=== PATIENT | female | born 1940 | race Hispanic/Latino ===

== ENCOUNTER 2018-04-26 14:47 | Emergency (ER) | payer MEDICARE ==
[~2018-04-26] VITALS: Ht 157.5 cm; Wt 58.5 kg
[~2018-04-26 14:47] MED LIST: AMLODIPINE; ATENOLOL; GABAPENTIN; LOSARTAN; RANITIDINE; REMICADE; SIMVASTATIN; TRAMADOL
--- NOTE | 2018-04-26 17:18 | Diagnostic Imaging Report ---
PROCEDURE:X-RAY LEFT SHOULDER, COMPLETE COMPARISON:Chest radiograph 10/10/2017 INDICATIONS:FALL, LEFT SHOULDER PAIN FINDINGS: BONES: Decreased mineralization. No acute fracture or dislocation. Joint spaces are within normal limits. SOFT TISSUES: Negative. OTHER: Stable left upper lobe calcific granuloma or atherosclerotic plaque. CONCLUSION: No acute osseous abnormalities. Dictated by: Renny Christine M.D. on 04/26/2018 at 17:21 Electronically approved by: eRnny Christine M.D. on 04/26/2018 at 17:21
--- NOTE | 2018-04-26 17:25 | Diagnostic Imaging Report ---
PROCEDURE:C-SPINE COMPLETE COMPARISON:None. INDICATIONS:FALL, NECK PAIN FINDINGS: Limited evaluation for subtle fractures and ligamentous injuries. The lateral view is visualized from the skull base to C6-C7. The neck is hyperextended. Retrolisthesis of 0.3 cm of C3 on C4. Possible mild anterolisthesis of C6 on C7. Decreased disc space at C4-C5, C5-C6, and C6-C7. There are no compression deformities. The C1/C2-odontoid interval is normal. The pre-vertebral soft tissues are normal. CONCLUSION: No acute bony abnormalities. Mild retrolisthesis of C3 on C4. Possible mild anterolisthesis of C6 on C7. If pain persists, recommend CT neck without contrast for more sensitive evaluation. Dictated by: Renny Christine M.D. on 04/26/2018 at 17:28 Electronically approved by: Renny Christine M.D. on 04/26/2018 at 17:28
--- NOTE | 2018-04-26 17:28 | Diagnostic Imaging Report ---
PROCEDURE: Frontal and lateral views of the chest. COMPARISON: Chest radiograph 10/10/2017 INDICATIONS: FALL FINDINGS: Lines/tubes: None. Lungs: The lungs are poorly inflated. There is mild bibasilar atelectasis. Stable apical calcified granulomas versus vascular calcifications. There is no evidence of pneumonia or pulmonary edema. Pleura: There is no pleural effusion or pneumothorax. Heart and mediastinum: The heart and the mediastinum are normal. Bones: No acute bony abnormality. IMPRESSION: No acute cardiopulmonary disease. Dictated by: Renny Christine M.D. on 04/26/2018 at 17:31 Electronically approved by: Renny Christine M.D. on 04/26/2018 at 17:31
[2018-04-27] MEDS ORDERED: TRAMADOL HCL 50 MG TAB PO ONE
--- NOTE | 2018-04-27 00:32 | Diagnostic Imaging Report ---
FOOT RIGHT AP LAT, FOOT LEFT AP LAT Comparison: None Clinical history: Trauma Findings: Diffusely decreased bone mineralization severely limits evaluation. Right foot: Fusion of the 1st metatarsal and proximal phalanx. Chronic appearing deformities of the 1st IP and 2nd-5th MTP joints. No definite acute displaced fracture. Hammertoe deformities/positioning. Mineralization or radiopaque densities are seen along the plantar aspect of the first digit. Vascular calcifications. Left foot: Chronic appearing deformity of the 2nd-5th MTP joints with bilateral phalangeal subluxation. Two screw fixation and postsurgical fusion of the 1st metatarsal and proximal phalanx. Slight superior subluxation of the first digit distal phalanx this is a 4 view of the. Hammertoe deformities/positioning. Vascular calcifications. Impression: Multiple chronic deformities, as above. No definite acute displaced fracture. Normal gated wall motion and 15 1 Signed by: Dr Haven Nuñez MD on 04/27/2018 12:28 AM
== END 2018-04-27 01:15 | disposition home or self-care (01) ==
LOC: ER 14:47
DX: M54.2 Cervicalgia (principal); S10.83XA Contusion of other specified part of neck, initial encounter; S40.012A Contusion of left shoulder, initial encounter; S90.31XA Contusion of right foot, initial encounter; W18.39XA Other fall on same level, initial encounter; Y92.008 Other place in unspecified non-institutional (private) residence as the place of occurrence of the external cause
CPT/HCPCS: 71046; 72050; 99283

== ENCOUNTER 2018-05-06 20:18 | Inpatient (IN) | payer MEDICARE ==
[~2018-05-06] VITALS: Ht 157.5 cm; Wt 57.6 kg
[~2018-05-06 20:18] MED LIST changes: -AMLODIPINE; +AMLODIPINE PO; -ATENOLOL; +ATENOLOL PO; -LOSARTAN; +LOSARTAN PO; -SIMVASTATIN; +SIMVASTATIN PO
[2018-05-06] MEDS ORDERED: PANTOPRAZOLE 40 MG 10ML VIAL IV STA (20:36)
[2018-05-06 20:55] LABS: BASOPHILS # (AUTO) 0.1 (0.0-0.1); BASOPHILS % 1.3 % (0.0-1.0); EOSINOPHILS # (AUTO) 0.7 (0.0-0.4); EOSINOPHILS % 7.1 % (0.0-6.0); HEMATOCRIT 38.8 % (34.2-44.1); HEMOGLOBIN 13.2 g/dL (12.0-16.0); LYMPHOCYTES # (AUTO) 0.8 (1.0-3.2); LYMPHOCYTES % 8.4 % (18.0-39.1); MEAN CORPUSCULAR HEMOGLOBIN 31.7 pg (28-32); MEAN CORPUSCULAR VOLUME 93.3 fL (81-99); MONOCYTES # (AUTO) 0.5 (0.2-0.8); MONOCYTES % 5.2 % (4.4-11.3); NEUTROPHILS # (AUTO) 7.6 (2.1-6.9); NEUTROPHILS % 77.5 % (38.7-80.0); PLATELET COUNT 262 x10e3/uL (140-360); RED BLOOD COUNT 4.16 x10e6/uL (3.6-5.1); RED CELL DISTRIBUTION WIDTH 14.8 % (11.7-14.4)
[2018-05-06] MEDS ORDERED: SODIUM CHLORIDE 0.9% 500ML 500 ML IV ONE (21:00)
[2018-05-06 21:04] LABS: INR 1.08; PROTHROMBIN TIME 13.2 seconds (11.9-14.5)
[2018-05-06 21:05] LABS: PARTIAL THROMBOPLASTIN TIME 30.5 seconds (23.8-35.5)
[2018-05-06 21:15] LABS: ALANINE AMINOTRANSFERASE 19 IU/L (0-55); ALBUMIN 3.4 g/dL (3.5-5.0); ALBUMIN/GLOBULIN RATIO 0.7 (0.8-2.0); ALKALINE PHOSPHATASE 117 IU/L (40-150); ANION GAP 13.3 mmol/L (8-16); BLOOD UREA NITROGEN 13 mg/dL (7-26); BUN/CREATININE RATIO 16 (6-25); CALCIUM 9.5 mg/dL (8.4-10.2); CARBON DIOXIDE 19 mmol/L (22-29); CHLORIDE 96 mmol/L (98-107); CREATINE KINASE 34 IU/L (29-168); CREATININE, SERUM 0.79 mg/dL (0.57-1.11); EST GLOMERULAR FILTRATION RATE > 60 ML/MIN (60-); GLUCOSE 115 mg/dL (74-118); LIPASE 70 U/L (8-78); MAGNESIUM 1.9 MG/DL (1.3-2.1); POTASSIUM 4.3 mmol/L (3.5-5.1); SODIUM 124 mmol/L (136-145)
[2018-05-06 21:16] LABS: B-TYPE NATRIURETIC PEPTIDE2 76.5 pg/mL (0-100)
--- NOTE | 2018-05-06 21:27 | Diagnostic Imaging Report ---
EXAMINATION: Head CT without contrast. HISTORY:Recent fall. COMPARISON:CT brain from 10/10/2017. TECHNIQUE: Multidetector axial images were obtained from the foramen magnum to the vertex without contrast. The images were reconstructed using brain and bone algorithms. Thin section brain images were reformatted into coronal and sagittal planes. Intravenous contrast: None IMAGE QUALITY: Acceptable. FINDINGS: Skull/scalp: No lytic or blastic. lesions. No surgical changes. Parenchyma: Unchanged nonspecific bilateral frontoparietal confluent white matter hypodensity are likely related to small vessel ischemic changes. No acute hemorrhage, mass or acute major vascular territorial infarct. Arteries: Atherosclerotic calcification in bilateral carotid siphon. Dural sinuses: No abnormal density suggestive of thrombosis. Ventricles: No hydrocephalus or displacement. Extra-axial spaces: No abnormal density. Brain volume: Mild generalized cerebral volume loss. Craniocervical junction: No mass, Chiari malformation, or basilar invagination. Sella: No mass. Paranasal/mastoid sinuses: Mild mucosal thickening in bilateral ethmoid sinuses. IMPRESSION: No acute intracranial abnormality. No change since CT brain from 10/10/2017. Chronic findings: 1. Moderate supratentorial white matter microvascular ischemic changes. 2. Mild generalized cerebral volume loss. Signed by: Dr. Shanti Hooper M.D. on 05/06/2018 9:23 PM
--- NOTE | 2018-05-06 21:27 | Diagnostic Imaging Report ---
EXAMINATION: CHEST 2 VIEWS INDICATION: Cough. COMPARISON: 04/26/2018 FINDINGS: TUBES and LINES: None. LUNGS: Lungs are well inflated. Bilateral apical calcification There is no evidence of pneumonia or pulmonary edema. PLEURA: No pleural effusion or pneumothorax. HEART AND MEDIASTINUM: The cardiomediastinal silhouette is unremarkable. There are atherosclerotic calcifications within the aorta. BONES AND SOFT TISSUES: No acute osseous lesion. Soft tissues are unremarkable. UPPER ABDOMEN: No free air under the diaphragm. IMPRESSION: No acute thoracic abnormality. Signed by: Dr. Tyler Bell M.D. on 05/06/2018 9:23 PM
[2018-05-06 21:34] LABS: CLARITY,URINE SL CLOUDY (CLEAR); COLOR,URINE YELLOW (YELLOW)
[2018-05-06 21:35] LABS: THYROID STIMULATING HORMONE 2.827 uIU/mL (0.350-4.940)
[2018-05-06 21:35] LABS: BILIRUBIN,URINE NEGATIVE (NEGATIVE); KETONES,URINE NEGATIVE (NEGATIVE); LEUKOCYTE ESTERASE ,URINE 1+ (NEGATIVE); NITRITE,URINE NEGATIVE (NEGATIVE); PROTEIN,URINE DIPSTICK 2+ (NEGATIVE); URINE UROBILINOGEN 4 mg/dL (0.2 - 1)
[2018-05-06 21:45] LABS: BACTERIA,URINE MANY /HPF; EPITHELIAL CELLS,URINE RARE /LPF; RBC,URINE 21-50 /HPF (0-5)
[2018-05-06] MEDS: CEFTRIAXONE SOD 1 GM VIAL IV SCH (22:12)
[2018-05-06] MEDS ORDERED: ACETAMINOPHEN 325 MG TAB PO PRN (22:15)
[2018-05-06] MEDS: SODIUM CHLORIDE 0.9% 1000ML 1,000 ML IV SCH (22:27)
[2018-05-06 23:05] VITALS: BP 158/72
[2018-05-06 23:15] VITALS: BP 158/72
[2018-05-07] VITALS (7 sets, daily range): BP systolic 119–136; BP diastolic 52–61
[2018-05-07] MEDS ORDERED: SERTRALINE HCL50 MG PO (00:03)
[2018-05-07] MEDS ORDERED: OMEPRAZOLE40 MG PO (00:03)
[2018-05-07] MEDS ORDERED: ATORVASTATIN CA10 MG PO (00:03)
[2018-05-07] MEDS ORDERED: CLONIDINE HCL0.1 MG PO (00:03)
[2018-05-07] MEDS ORDERED: PENTOXIFYLLINE400 MG PO (00:03)
[2018-05-07] MEDS ORDERED: DIOVAN160 MG PO (00:03)
[2018-05-07 06:39] LABS: BASOPHILS # (AUTO) 0.1 (0.0-0.1); BASOPHILS % 1.5 % (0.0-1.0); EOSINOPHILS # (AUTO) 0.9 (0.0-0.4); EOSINOPHILS % 13.1 % (0.0-6.0); HEMATOCRIT 33.9 % (34.2-44.1); HEMOGLOBIN 11.6 g/dL (12.0-16.0); LYMPHOCYTES # (AUTO) 1.2 (1.0-3.2); LYMPHOCYTES % 17.1 % (18.0-39.1); MEAN CORPUSCULAR HEMOGLOBIN 31.4 pg (28-32); MEAN CORPUSCULAR HGB CONC 34.2 g/dL (31-35); MEAN CORPUSCULAR VOLUME 91.6 fL (81-99); MONOCYTES # (AUTO) 0.6 (0.2-0.8); MONOCYTES % 9.5 % (4.4-11.3); NEUTROPHILS # (AUTO) 3.9 (2.1-6.9); NEUTROPHILS % 58.7 % (38.7-80.0); PLATELET COUNT 224 x10e3/uL (140-360); RED CELL DISTRIBUTION WIDTH 14.7 % (11.7-14.4)
[2018-05-07 07:05] LABS: ALANINE AMINOTRANSFERASE 14 IU/L (0-55); ALBUMIN 2.7 g/dL (3.5-5.0); ALBUMIN/GLOBULIN RATIO 0.7 (0.8-2.0); ALKALINE PHOSPHATASE 94 IU/L (40-150); ANION GAP 8.2 mmol/L (8-16); BLOOD UREA NITROGEN 9 mg/dL (7-26); BUN/CREATININE RATIO 13 (6-25); CALCIUM 8.6 mg/dL (8.4-10.2); CARBON DIOXIDE 23 mmol/L (22-29); CHLORIDE 103 mmol/L (98-107); CREATININE, SERUM 0.67 mg/dL (0.57-1.11); EST GLOMERULAR FILTRATION RATE > 60 ML/MIN (60-); GLUCOSE 84 mg/dL (74-118); POTASSIUM 4.2 mmol/L (3.5-5.1); SODIUM 130 mmol/L (136-145)
[2018-05-07] MEDS: SODIUM CHLORIDE 0.9% 1000ML 1,000 ML IV SCH ×2 (08:14→17:52)
[2018-05-07] MEDS ORDERED: CLONIDINE HCL 0.1 MG TAB PO PRN (09:30)
[2018-05-07] MEDS: PANTOPRAZOLE SOD 40 MG TABEC PO SCH (09:45)
[2018-05-07] MEDS: VALSARTAN 160 MG TAB PO SCH (09:58)
[2018-05-07] MEDS: CEFTRIAXONE SOD 1 GM VIAL IV SCH ×2 (09:58→22:03)
--- NOTE | 2018-05-07 11:17 | History and Physical ---
PRIMARY CARE PHYSICIAN: Jarad Fox MD CHIEF COMPLAINT: Generalized weakness, medical debility, low sodium level, confusion more so than baseline dementia, and dehydration. HISTORY OF PRESENT ILLNESS: Patient is a 77-year-old female who came in with generalized weakness and multiple bouts of diarrhea, and the patient also has low sodium level. The sodium level was 124, chloride was 98 and bicarb was 19. The patient was in mild metabolic acidosis. In the emergency room, the patient was placed on IV Rocephin and IV fluids and admitted to the hospital for treatment. The patient was having some agitation with recent diagnosis of increasing dementia and confusion. She also has severe rheumatoid arthritis with both hand contractures. The patient is stable. She has responded to IV fluids so far. PAST MEDICAL HISTORY: Hypothyroidism, major depression, osteoarthritis, rheumatoid arthritis, hand deformities, hypertension, dementia. PAST SURGICAL HISTORY: Noncontributory. SOCIAL HISTORY: The patient does not smoke or use alcohol. She lives at home with her family. ALLERGIES: PENICILLIN. HOME MEDICATIONS: Lipitor, clonidine, omeprazole, Trental, Zoloft, valsartan, Norvasc, atenolol, gabapentin, losartan, Remicade, simvastatin, tramadol and ranitidine. REVIEW OF SYSTEMS: Generalized weakness and confusion. PHYSICAL EXAMINATION GENERAL: The patient seems weak and confused, but she is not in any respiratory distress. VITAL SIGNS: Temperature 98. Blood pressure 125/62. Pulse rate 60. Respirations 20. HEENT: Normocephalic, atraumatic, anicteric. NECK: Supple grossly. PULMONARY: Diminished breath sounds without any wheezing or rales. CARDIOVASCULAR: S1 and S2. Regular rate and rhythm. ABDOMEN: Soft. Generalized discomfort. No rebound or guarding. EXTREMITIES: No cyanosis or edema. Severe both hand deformities. NEUROLOGIC: No focal deficit. Moving all extremities. Confusion. LABORATORY: Sodium is 124. Potassium 4.3, chloride 96. Bicarb 19. BUN is 13, creatinine 0.8. Glucose is 150. Albumin is 3.4. TSH is 2.8. Lipase is 70. WBC is 9.9. Hemoglobin 13. Hematocrit 39. Platelets is 262. Urinalysis showed 2+ protein, 4+ blood, 1+ leukocyte esterase, WBCs 20, RBCs 50, many bacteria. Coagulation is unremarkable. CT scan of the brain is unremarkable. Microvascular ischemic changes moderate. Chest x-ray: No acute abnormality. IMPRESSION 1. Delirium. Increasing confusion and agitation from baseline dementia. 2. Urinary tract infection with delirium. There is no sepsis. 3. Dehydration. 4. Hyponatremia. 5. Severe rheumatoid arthritis. 6. Multiple chronic baseline problems. PLAN: Continue with home medications. Antibiotics. PT and OT. DVT prophylaxis. Repeated lab work. Normal saline. Diaz catheter in place. Will hold off on any immunosuppressive medications. Job#: [id number]
[2018-05-07] MEDS ORDERED: SODIUM CHLORIDE 0.9% 50ML 50 ML ONE (16:15)
[2018-05-07] MEDS ORDERED: IOPAMIDOL 370 MG/ML 200 ML INFUS..BTL INJ ONE (16:15)
[2018-05-07] MEDS: ENOXAPARIN 30 MG/0.3 ML SYR SC SCH (16:22)
[2018-05-07] MEDS: PENTOXIFYLLINE 400 MG TAB CR PO SCH (16:22)
--- NOTE | 2018-05-07 16:36 | Diagnostic Imaging Report ---
EXAM: CT Abdomen and Pelvis WITH contrast INDICATION: \S\UTI / PAIN \S\[id number] \S\1540 COMPARISON: Chest radiograph 05/06/2018 TECHNIQUE: Abdomen and pelvis were scanned utilizing a multidetector helical scanner from the lung base to the pubic symphysis after administration of IV contrast. Coronal and sagittal reformations were obtained. Routine protocol was performed. Scan was performed when during portal venous phase. IV CONTRAST: 100 mL of Isovue-300 ORAL CONTRAST: Water RADIATION DOSE: Total DLP: 261.39 mGy*cm Estimated effective dose: (DLP x 0.015 x size factor) mSv COMPLICATIONS: None FINDINGS: LINES and TUBES: Diaz catheter within the urinary bladder. LOWER THORAX: Minimal atelectasis in both lung bases. Possible small subcarinal lymph node measuring 0.8 cm in diameter on series 2, image 1. Mild calcifications of the aortic root and descending thoracic aorta. The right ventricle is enlarged. HEPATOBILIARY: No focal hepatic lesions. No biliary ductal dilation. GALLBLADDER: No radio-opaque stones or sludge. No wall thickening. SPLEEN: No splenomegaly. PANCREAS: No focal masses or ductal dilatation. ADRENALS: No adrenal nodules KIDNEYS/URETERS: Kidneys enhance symmetrically. No hydronephrosis. Mild pelviectasis on the right with mild dilatation of the proximal ureter without visualized calcified stones or stricture. No cystic or solid mass lesions. No stones. GI TRACT: No abnormal distention, wall thickening, or evidence of bowel obstruction. Diffuse diverticulosis throughout the sigmoid colon. Appendix is not visualized. PELVIC ORGANS/BLADDER: The urinary bladder is decompressed with Diaz catheter in place. There is diffuse fat stranding surrounding the urinary bladder, likely correlates with this patient urinary tract infection. The uterus appeared normal in size. No adnexal masses. LYMPH NODES: No lymphadenopathy. VESSELS: The abdominal aorta and pelvic arteries are normal in caliber and associated with moderate atherosclerotic calcifications. 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 Distal branches appear patent. There are 2 right and single left renal arteries with associated calcified plaques in the proximal segments. PERITONEUM / RETROPERITONEUM: No free air or fluid. BONES: Multilevel degenerative changes of the lumbar spine. SOFT TISSUES: Unremarkable. IMPRESSION: 1. Decompressed urinary bladder with Diaz catheter in place but with surrounding fat stranding likely correlates with this patient urinary tract infection. 2. Right pelviectasis and dilatation of the proximal ureter without visualized nephroureterolithiasis. No CT findings to suggest pyelonephritis. 3. Diverticulosis throughout the sigmoid colon without diverticulitis. 4. 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 Signed by: Dr. Kandice Winkler M.D. on 05/07/2018 4:33 PM
[2018-05-08] VITALS (8 sets, daily range): BP systolic 68–143; BP diastolic 62–73
[2018-05-08] MEDS: SODIUM CHLORIDE 0.9% 1000ML 1,000 ML IV SCH ×2 (00:19→04:14)
[2018-05-08 06:07] LABS: BASOPHILS # (AUTO) 0.1 (0.0-0.1); BASOPHILS % 1.7 % (0.0-1.0); EOSINOPHILS # (AUTO) 0.8 (0.0-0.4); HEMATOCRIT 36.3 % (34.2-44.1); HEMOGLOBIN 12.2 g/dL (12.0-16.0); LYMPHOCYTES # (AUTO) 1.4 (1.0-3.2); LYMPHOCYTES % 23.7 % (18.0-39.1); MEAN CORPUSCULAR HEMOGLOBIN 31.6 pg (28-32); MEAN CORPUSCULAR HGB CONC 33.6 g/dL (31-35); MONOCYTES # (AUTO) 0.6 (0.2-0.8); MONOCYTES % 11.1 % (4.4-11.3); NEUTROPHILS # (AUTO) 2.9 (2.1-6.9); NEUTROPHILS % 49.8 % (38.7-80.0); PLATELET COUNT 230 x10e3/uL (140-360); RED BLOOD COUNT 3.86 x10e6/uL (3.6-5.1); RED CELL DISTRIBUTION WIDTH 15.1 % (11.7-14.4)
[2018-05-08 06:37] LABS: ANION GAP 10.8 mmol/L (8-16); BLOOD UREA NITROGEN 7 mg/dL (7-26); BUN/CREATININE RATIO 11 (6-25); CALCIUM 8.6 mg/dL (8.4-10.2); CARBON DIOXIDE 22 mmol/L (22-29); CHLORIDE 105 mmol/L (98-107); CREATININE, SERUM 0.63 mg/dL (0.57-1.11); EST GLOMERULAR FILTRATION RATE > 60 ML/MIN (60-); GLUCOSE 80 mg/dL (74-118); POTASSIUM 3.8 mmol/L (3.5-5.1); SODIUM 134 mmol/L (136-145)
[2018-05-08 06:57] LABS: MAGNESIUM 1.7 MG/DL (1.3-2.1)
[2018-05-08 07:05] LABS: FOLATE 4.3 ng/mL (7.0-15.4)
[2018-05-08] MEDS: PANTOPRAZOLE SOD 40 MG TABEC PO SCH (08:55)
[2018-05-08] MEDS: VALSARTAN 160 MG TAB PO SCH (08:55)
[2018-05-08] MEDS: CEFTRIAXONE SOD 1 GM VIAL IV SCH ×2 (08:55→21:50)
[2018-05-08] MEDS: PENTOXIFYLLINE 400 MG TAB CR PO SCH ×2 (08:55→17:28)
[2018-05-08] MEDS: SERTRALINE HCL 50 MG TAB PO SCH (08:55)
[2018-05-08] MEDS: FOLIC ACID 1 MG TAB PO SCH (11:59)
--- NOTE | 2018-05-08 12:57 | Consultation ---
DATE OF CONSULTATION: May 08, 2018 ATTENDING PHYSICIAN: Dr. Victoriano Giles Thank you so much for asking us to see this nice lady in consultation. Ms. Dela Cruz is a charming, but very elderly, 77-year-old woman who evidently was admitted to [facility] on the with some confusion and found have a urinary tract infection. The patient cannot provide me with any additional information except that she was feeling ill at home. CHIEF COMPLAINT: Consultation is asked for abdominal CT finding of stenoses of the celiac trunk and superior mesenteric arteries. PAST MEDICAL HISTORY: Significant for rheumatoid arthritis for which she has used Remicade infusions in the past and hypertension. She is felt to have some peripheral vascular disease but walks with a cane. Hyperlipidemia. MEDICATIONS: Recent reported home medications include: 1. Atorvastatin 10 mg daily. 2. Clonidine 0.1 mg b.i.d. 3. Omeprazole 40 mg daily. 4. Pentoxifylline 400 mg b.i.d. 5. Sertraline 50 mg daily. 6. Diovan 160 mg daily. 7. Amlodipine 10 mg daily. 8. Atenolol 100 mg daily. 9. Gabapentin. 10. Losartan 100 mg daily. REVIEW OF SYSTEMS MUSCULOSKELETAL: She reports she still walks with a cane or walker. GI: She reports she has some trouble swallowing, but she thinks she has had previous EGD and dilatation. She denies any abdominal cramping after meals and reports that her weight is perhaps a few pounds less than last year. PHYSICAL EXAMINATION VITALS: Blood pressure 143/73, pulse 80 and regular. GENERAL: A very elderly woman who is awake and conversant. HEENT: Relatively unremarkable. NECK: No jugular venous distention. THORAX: Heart sounds S1 and S2 are equal. No murmurs. LUNGS: Clear. ABDOMEN: Protuberant. Normal bowel sounds. Nontender. No masses or organomegaly. EXTREMITIES: No cyanosis, clubbing or edema. The fingers of both hands have rheumatoid deformities. Review of CAT scan of the abdomen does show some stenoses of the celiac trunk and superior mesenteric artery, and there is some plaquing in the renal arteries. Iliacs are somewhat tortuous but without stenoses. Review of labs shows on the urine with 21-50 red cells, 11-20 white cells, 1+ leukocyte esterase. Chemistries today show sodium 134, potassium 3.8, chloride 105, bicarb 22, BUN 7, creatinine 0.63. Today, hemoglobin is 12.2, white count 5.78, platelets 230,000. ASSESSMENT 1. Urinary tract infection. 2. Confusion, seems to be improving. 3. Deforming rheumatoid arthritis. 4. Hypertension. 5. 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 PLAN: Patient does not describe any abdominal cramping (intestinal angina). With her multiple other problems, suggest that we monitor her atherosclerotic disease. Could reconsider if she does seem to develop any cramping after meals. Thank you for asking me to see her consultation. Job#: [id number] cc:MD ISMA SEBASTIAN MD MING JEANG, MD
[2018-05-08] MEDS: ENOXAPARIN 30 MG/0.3 ML SYR SC SCH (17:28)
[2018-05-09] VITALS: BP 143/68
[2018-05-09 04:00] VITALS: BP 140/69
[2018-05-09 06:08] LABS: BASOPHILS # (AUTO) 0.1 (0.0-0.1); BASOPHILS % 1.3 % (0.0-1.0); EOSINOPHILS # (AUTO) 0.6 (0.0-0.4); EOSINOPHILS % 9.2 % (0.0-6.0); HEMATOCRIT 38.2 % (34.2-44.1); HEMOGLOBIN 12.9 g/dL (12.0-16.0); LYMPHOCYTES # (AUTO) 1.6 (1.0-3.2); LYMPHOCYTES % 23.9 % (18.0-39.1); MEAN CORPUSCULAR HGB CONC 33.8 g/dL (31-35); MEAN CORPUSCULAR VOLUME 94.8 fL (81-99); MONOCYTES # (AUTO) 0.8 (0.2-0.8); MONOCYTES % 11.3 % (4.4-11.3); NEUTROPHILS # (AUTO) 3.6 (2.1-6.9); NEUTROPHILS % 53.7 % (38.7-80.0); PLATELET COUNT 235 x10e3/uL (140-360); RED BLOOD COUNT 4.03 x10e6/uL (3.6-5.1); RED CELL DISTRIBUTION WIDTH 15.2 % (11.7-14.4)
[2018-05-09 06:32] LABS: ANION GAP 11.5 mmol/L (8-16); BLOOD UREA NITROGEN 6 mg/dL (7-26); BUN/CREATININE RATIO 9 (6-25); CALCIUM 9.1 mg/dL (8.4-10.2); CARBON DIOXIDE 23 mmol/L (22-29); CHLORIDE 99 mmol/L (98-107); CREATININE, SERUM 0.64 mg/dL (0.57-1.11); EST GLOMERULAR FILTRATION RATE > 60 ML/MIN (60-); GLUCOSE 82 mg/dL (74-118); POTASSIUM 3.5 mmol/L (3.5-5.1); SODIUM 130 mmol/L (136-145)
[2018-05-09 08:10] VITALS: BP 121/65
[2018-05-09] MEDS: PANTOPRAZOLE SOD 40 MG TABEC PO SCH (08:35)
[2018-05-09] MEDS: FOLIC ACID 1 MG TAB PO SCH (08:36)
[2018-05-09] MEDS: SERTRALINE HCL 50 MG TAB PO SCH (08:36)
[2018-05-09] MEDS: CEFTRIAXONE SOD 1 GM VIAL IV SCH ×2 (08:36→22:30)
[2018-05-09] MEDS: VALSARTAN 160 MG TAB PO SCH (08:36)
[2018-05-09] MEDS: PENTOXIFYLLINE 400 MG TAB CR PO SCH ×2 (08:36→17:08)
[2018-05-09 08:47] VITALS: BP 121/65
[2018-05-09] MEDS: ENOXAPARIN 30 MG/0.3 ML SYR SC SCH (17:08)
[2018-05-09 20:00] VITALS: BP 153/77
[2018-05-09 21:00] VITALS: BP 153/77
[2018-05-10] VITALS (8 sets, daily range): BP systolic 129–146; BP diastolic 58–80
[2018-05-10 06:05] LABS: BASOPHILS # (AUTO) 0.1 (0.0-0.1); BASOPHILS % 1.2 % (0.0-1.0); EOSINOPHILS # (AUTO) 0.9 (0.0-0.4); EOSINOPHILS % 11.1 % (0.0-6.0); HEMATOCRIT 38.4 % (34.2-44.1); HEMOGLOBIN 12.9 g/dL (12.0-16.0); LYMPHOCYTES # (AUTO) 1.4 (1.0-3.2); LYMPHOCYTES % 17.7 % (18.0-39.1); MEAN CORPUSCULAR HEMOGLOBIN 31.7 pg (28-32); MEAN CORPUSCULAR HGB CONC 33.6 g/dL (31-35); MEAN CORPUSCULAR VOLUME 94.3 fL (81-99); MONOCYTES # (AUTO) 0.8 (0.2-0.8); MONOCYTES % 10.4 % (4.4-11.3); NEUTROPHILS # (AUTO) 4.5 (2.1-6.9); NEUTROPHILS % 59.2 % (38.7-80.0); PLATELET COUNT 248 x10e3/uL (140-360); RED BLOOD COUNT 4.07 x10e6/uL (3.6-5.1); RED CELL DISTRIBUTION WIDTH 15.5 % (11.7-14.4)
[2018-05-10 06:32] LABS: ANION GAP 10.7 mmol/L (8-16); BLOOD UREA NITROGEN 7 mg/dL (7-26); BUN/CREATININE RATIO 11 (6-25); CALCIUM 9.2 mg/dL (8.4-10.2); CARBON DIOXIDE 22 mmol/L (22-29); CHLORIDE 98 mmol/L (98-107); CREATININE, SERUM 0.63 mg/dL (0.57-1.11); EST GLOMERULAR FILTRATION RATE > 60 ML/MIN (60-); GLUCOSE 90 mg/dL (74-118); POTASSIUM 3.7 mmol/L (3.5-5.1); SODIUM 127 mmol/L (136-145)
[2018-05-10] MEDS: PANTOPRAZOLE SOD 40 MG TABEC PO SCH (07:30)
[2018-05-10] MEDS: FOLIC ACID 1 MG TAB PO SCH (09:00)
[2018-05-10] MEDS: PENTOXIFYLLINE 400 MG TAB CR PO SCH ×2 (09:00→16:40)
[2018-05-10] MEDS: SERTRALINE HCL 50 MG TAB PO SCH (09:00)
[2018-05-10] MEDS: VALSARTAN 160 MG TAB PO SCH (09:00)
[2018-05-10] MEDS: CEFTRIAXONE SOD 1 GM VIAL IV SCH ×2 (10:00→21:43)
[2018-05-10] MEDS: ENOXAPARIN 30 MG/0.3 ML SYR SC SCH (16:40)
[2018-05-11] VITALS (8 sets, daily range): BP systolic 122–158; BP diastolic 65–85
[2018-05-11 05:20] LABS: ANION GAP 12.7 mmol/L (8-16); BLOOD UREA NITROGEN 8 mg/dL (7-26); BUN/CREATININE RATIO 13 (6-25); CALCIUM 8.8 mg/dL (8.4-10.2); CARBON DIOXIDE 21 mmol/L (22-29); CHLORIDE 100 mmol/L (98-107); EST GLOMERULAR FILTRATION RATE > 60 ML/MIN (60-); GLUCOSE 86 mg/dL (74-118); POTASSIUM 3.7 mmol/L (3.5-5.1); SODIUM 130 mmol/L (136-145)
[2018-05-11] MEDS: PANTOPRAZOLE SOD 40 MG TABEC PO SCH (07:30)
[2018-05-11] MEDS: PENTOXIFYLLINE 400 MG TAB CR PO SCH ×2 (09:00→17:00)
[2018-05-11] MEDS: FOLIC ACID 1 MG TAB PO SCH (09:00)
[2018-05-11] MEDS: VALSARTAN 160 MG TAB PO SCH (09:00)
[2018-05-11] MEDS: SERTRALINE HCL 50 MG TAB PO SCH (09:00)
[2018-05-11] MEDS: CEFTRIAXONE SOD 1 GM VIAL IV SCH ×2 (10:00→21:50)
[2018-05-11] MEDS: ENOXAPARIN 30 MG/0.3 ML SYR SC SCH (17:00)
[2018-05-12 00:35] VITALS: BP 149/79
[2018-05-12 04:33] VITALS: BP 118/67
[2018-05-12 09:03] VITALS: BP 128/66
[2018-05-12] MEDS: VALSARTAN 160 MG TAB PO SCH (10:08)
[2018-05-12] MEDS: CEFTRIAXONE SOD 1 GM VIAL IV SCH (10:08)
[2018-05-12] MEDS: PENTOXIFYLLINE 400 MG TAB CR PO SCH ×2 (10:08→18:07)
[2018-05-12] MEDS: PANTOPRAZOLE SOD 40 MG TABEC PO SCH (10:08)
[2018-05-12] MEDS: FOLIC ACID 1 MG TAB PO SCH (10:08)
[2018-05-12] MEDS: SERTRALINE HCL 50 MG TAB PO SCH (10:08)
[2018-05-12 10:19] VITALS: BP 128/66
--- NOTE | 2018-05-12 11:00 | Discharge Summary ---
NO DICTATION, LENGTH 1 SECOND. Job#: [id number] MH
--- NOTE | 2018-05-12 11:10 | Discharge Summary ---
FINAL DIAGNOSES 1. Acute encephalopathy secondary to sepsis associated with urinary tract infection with pyelonephritis. 2. Escherichia coli infection with urine culture. 3. Baseline dementia. 4. Severe peripheral vascular disease. SUMMARY: Patient is a 77-year-old female basically with dementia; but when she came in, she was more lethargic and agitated when she was awakened, more so than baseline dementia. Patient was encephalopathic. On admission, she had a pretty bad urinary tract infection with many bacteria, 4+ blood, 1+ leukocyte esterase. The patient with low blood pressure responded to IV bolus. Patient was stable. She was treated in the emergency room on Rocephin. Her sodium level was slightly low at 124. It is 130 now. The patient's urine culture grew out E. coli. Patient also had a brain CT, chest x-ray and abdominal and pelvic CT. She is doing better now. She is back to her baseline where she follows commands and is answering questions. She lives at home with provider care who was out of town for about a week. The patient is now going back to home with a provider. Son checks up on the patient on a regular basis. He is planning to have the patient stay with family members in the very near future. Arrangement was made for home health. The patient will go home today. She will take Keflex 500 mg t.i.d. for 7 more days. She will take Bacid for probiotic. The patient will continue with her home medication. She is stable and discharged today. All arrangements have made, and I also spoke with the patient's son, Mr. Martines, as well. Job#: [id number]
[2018-05-12 11:51] VITALS: BP 126/73
[2018-05-12 16:37] VITALS: BP 135/68
[2018-05-12] MEDS: ENOXAPARIN 30 MG/0.3 ML SYR SC SCH (17:00)
== END 2018-05-12 18:50 | disposition home health service (06) | DRG 871 ==
LOC: ER 20:18 → ERHOLD 22:19 → MED/SURG2 23:05
PROVIDERS: ADMIT Internal Medicine; ATTEND Internal Medicine
DX: A41.9 Sepsis, unspecified organism (principal); G93.41 Metabolic encephalopathy; N39.0 Urinary tract infection, site not specified; I77.4 Celiac artery compression syndrome; K55.1 Chronic vascular disorders of intestine; E87.1 Hypo-osmolality and hyponatremia; F03.91 Unspecified dementia, unspecified severity, with behavioral disturbance; F05 Delirium due to known physiological condition; R65.20 Severe sepsis without septic shock; M06.9 Rheumatoid arthritis, unspecified; I10 Essential (primary) hypertension; B96.20 Unspecified Escherichia coli [E. coli] as the cause of diseases classified elsewhere; I73.9 Peripheral vascular disease, unspecified; E86.0 Dehydration; K52.9 Noninfective gastroenteritis and colitis, unspecified; M62.442 Contracture of muscle, left hand; M62.441 Contracture of muscle, right hand; E78.5 Hyperlipidemia, unspecified
CPT/HCPCS: 36415; 51700; 70450; 71046; 74177; 80048; 80053; 81001; 82550; 82553; 82607; 82746; 83605; 83690; 83735; 83880; 84100; 84443; 84484; 85025; 85610; 85730; 87086; 87186; 93005; 97139; 99284; J0696; J1650; J7030; J7040; Q9967

== ENCOUNTER 2018-10-16 14:37 | Inpatient (IN) | payer MEDICARE ==
[~2018-10-16] VITALS: Ht 157.5 cm; Wt 62.2 kg
[~2018-10-16 14:37] MED LIST changes: +ATORVASTATIN CA10 MG PO; +CLONIDINE HCL0.1 MG PO; +DIOVAN160 MG PO; +OMEPRAZOLE40 MG PO; +PENTOXIFYLLINE400 MG PO; +SERTRALINE HCL50 MG PO
--- OUTSIDE RECORDS SUMMARY | 2018-10-16 14:41 | XMS REPORT | Clinical Summary ---
Author Author [facility] Organization [facility] Address Unknown Phone Unavailable Care Team Providers Care School Examiner Name Role Phone Jarad Fox MD PCP Allergies Comments Active Allergy Reactions Severity Noted Date "makes me cough a lot, feels like something is stuck in my throat" Penicillins Other (See 10/29/2016 Comments) Medications End Date Status Medication Sig Dispensed Refills Start Date Active amLODIPine (NORVASC) 10 Take 10 mg by 0 mg tablet mouth daily. Active atenolol (TENORMIN) 50 MG Take 50 mg by 0 tablet mouth daily. Active budesonide-formoterol Inhale 1 puff 0 (SYMBICORT) 160-4.5 2 (two) times mcg/actuation inhaler a day. Active levothyroxine (SYNTHROID, Take 50 mcg 0 LEVOXYL) 50 mcg tablet by mouth every morning. Active losartan (COZAAR) 50 MG Take 50 mg by 0 tablet mouth daily. Active UNABLE TO FIND Med Name: 0 Methotrexate 25mg/ml injection solution Inject 0.8ml once a week (On Tuesday) Active ranitidine (ZANTAC) 150 Take 150 mg 0 MG tablet by mouth 2 (two) times a day. Active simvastatin (ZOCOR) 40 MG Take 40 mg by 0 tablet mouth nightly. Active Problems Problem Noted Date UTI (urinary tract infection) 11/01/2016 Essential hypertension 11/01/2016 Acute bronchitis 11/01/2016 Rheumatoid arthritis of hand 11/01/2016 Acute urinary tract infection 10/29/2016 Social History Date Tobacco Use Types Packs/Day Years Used Never Smoker Alcohol Use Drinks/Week oz/Week Comments No Sex Assigned at Date Recorded Not on file Industry Job Start Date Occupation Not on file Not on file Not on file Travel End Travel History Travel Start No recent travel history available. Last Filed Vital Signs Not on file Plan of Treatment Health Maintenance Due Date Last Done Comments SHINGRIX VACCINE (1 of 2) 1991 ZOSTER VACCINE 2001 PNEUMOCOCCAL 2006 POLYSACCHARIDE VACCINE AGE 65 AND OVER PNEUMOCOCCAL-13 2006 INFLUENZA VACCINE 06/07/2018 Results Not on fileafter 10/15/2017 Insurance Payer Benefit Subscriber ID Type Phone Address Plan / Group MEDICAID MEDICAID xxxxxxxxx Medicaid MISC MEDICARE REPLACEMENT MISC xxxxxxxx HMO MEDICARE REPLACEMEN T Advance Directives Patient has advance care planning documents on file. For more information, damion ferrara contact: Gui Jones [address] [place] [address]
[2018-10-16] MEDS ORDERED: SODIUM CHLORIDE 0.9% 1000ML 2,000 ML ONE (15:08)
[2018-10-16] MEDS ORDERED: ACETAMINOPHEN 1000 MG/100 ML IV NR (15:15)
[2018-10-16] MEDS ORDERED: SODIUM CHLORIDE 0.9% 1000ML 2,000 ML IV ONE (15:15)
[2018-10-16 15:37] LABS: BASOPHILS # (AUTO) 0.1 (0.0-0.1); BASOPHILS % 0.8 % (0.0-1.0); EOSINOPHILS # (AUTO) 0.2 (0.0-0.4); EOSINOPHILS % 1.7 % (0.0-6.0); HEMATOCRIT 38.6 % (34.2-44.1); HEMOGLOBIN 13.1 g/dL (12.0-16.0); LYMPHOCYTES # (AUTO) 1.1 (1.0-3.2); LYMPHOCYTES % 8.2 % (18.0-39.1); MEAN CORPUSCULAR HEMOGLOBIN 31.8 pg (28-32); MEAN CORPUSCULAR HGB CONC 33.9 g/dL (31-35); MEAN CORPUSCULAR VOLUME 93.7 fL (81-99); MONOCYTES # (AUTO) 1.5 (0.2-0.8); MONOCYTES % 11.1 % (4.4-11.3); NEUTROPHILS # (AUTO) 10.4 (2.1-6.9); NEUTROPHILS % 77.3 % (38.7-80.0); PLATELET COUNT 336 x10e3/uL (140-360); RED BLOOD COUNT 4.12 x10e6/uL (3.6-5.1)
[2018-10-16] MEDS ORDERED: LEVOTHYROXINE75 MCG PO (15:39)
[2018-10-16] MEDS ORDERED: [UNRECOGNIZED DRUG - CODE] (15:39)
[2018-10-16] MEDS ORDERED: METHYLPREDNISOLO4 MG PO (15:39)
[2018-10-16] MEDS ORDERED: FOLIC ACID1 MG PO (15:39)
[2018-10-16] MEDS ORDERED: LOPRESSOR25 MG PO (15:39)
[2018-10-16] MEDS ORDERED: XELJANZ (15:39)
[2018-10-16] MEDS ORDERED: NIFEDIPINE ER30 MG PO (15:39)
[2018-10-16] MEDS ORDERED: COLACE100 MG PO (15:39)
[2018-10-16 15:42] LABS: INR 0.98; PROTHROMBIN TIME 13.9 seconds (11.9-14.5)
[2018-10-16 15:43] LABS: PARTIAL THROMBOPLASTIN TIME 29.9 seconds (23.8-35.5)
--- NOTE | 2018-10-16 15:46 | Diagnostic Imaging Report ---
Examination: Single AP view of the chest. COMPARISON: None. INDICATION: Weakness difficulty breathing DISCUSSION: Lines/tubes: None. Lungs: Low lung volumes with crowding of the vasculature. No consolidation or edema. Pleura: No pleural effusion or pneumothorax. Heart and mediastinum: The heart and the mediastinum are unremarkable. Bones and soft tissues: No acute bony abnormalities. IMPRESSION: 1. No acute cardiopulmonary abnormalities. Signed by: Dr. Usama Garcia M.D. on 10/16/2018 3:43 PM
[2018-10-16 15:49] LABS: ALANINE AMINOTRANSFERASE 24 IU/L (0-55); ALBUMIN 2.8 g/dL (3.5-5.0); ALBUMIN/GLOBULIN RATIO 0.6 (0.8-2.0); ALKALINE PHOSPHATASE 95 IU/L (40-150); ANION GAP 14.2 mmol/L (8-16); BLOOD UREA NITROGEN 11 mg/dL (7-26); BUN/CREATININE RATIO 15 (6-25); CALCIUM 8.6 mg/dL (8.4-10.2); CARBON DIOXIDE 20 mmol/L (22-29); CHLORIDE 100 mmol/L (98-107); CREATININE, SERUM 0.74 mg/dL (0.57-1.11); EST GLOMERULAR FILTRATION RATE > 60 ML/MIN (60-); GLUCOSE 110 mg/dL (74-118); MAGNESIUM 1.6 MG/DL (1.3-2.1); POTASSIUM 3.2 mmol/L (3.5-5.1); SODIUM 131 mmol/L (136-145)
[2018-10-16 16:09] LABS: THYROID STIMULATING HORMONE 0.667 uIU/mL (0.350-4.940)
--- NOTE | 2018-10-16 16:13 | Diagnostic Imaging Report ---
Exam: Head CT without contrast History: Weakness, altered mental status, sepsis Comparison studies: 2-3) 2017 and 10/10/2017. Technique: Axial images were obtained from the skull base to the vertex. Coronal and sagittal images reconstructed from the axial data. Dose modulation, iterative reconstruction, and/or weight based adjustment of the mA/kV was utilized to reduce the radiation dose to as low as reasonably achievable. Radiation dose: Total DLP: 921 mGy*cm. Estimated effective dose: DLP x 0.015 Intravenous contrast: None Findings: Scalp: No abnormalities. Bones: No fractures, blastic or lytic lesions. Brain sulci: Mildly prominent. Ventricles: Mild compensatory lytic. No hydrocephalus. Extra-axial spaces: No masses, no fluid collection. Parenchyma: No mass, acute hemorrhage or acute cortical vascular insults. Again identified are scattered and mildly confluent hypodensities in the supratentorial white matter are nonspecific most compatible with chronic microvascular ischemic changes. Sellar/suprasellar region: No abnormalities. Craniocervical junction: Patent foramen magnum. No Chiari one malformation. Included paranasal sinuses: Nonspecific inflammatory changes with partially opacified left frontal sinus, bilateral anterior ethmoid air cells and bilateral maxillary sinuses which contain mucosal thickening. Nonspecific secretions also present in the bilateral maxillary sinuses. Incidental findings: Bilateral lens replacements for previous cataract surgery. Atherosclerotic calcifications in the carotid siphons. IMPRESSION: 1. No acute intracranial abnormalities. 2. Mild generalized volume loss. 3. Moderate microvascular ischemic changes. 4. Inflammatory changes in the paranasal sinuses which could be correlated for acute on chronic sinusitis. Signed by: Dr. Edis Villanueva M.D. on 10/16/2018 4:10 PM
[2018-10-16 16:27] LABS: BILIRUBIN,URINE NEGATIVE (NEGATIVE); CLARITY,URINE SL CLOUDY (CLEAR); COLOR,URINE YELLOW (YELLOW); KETONES,URINE NEGATIVE (NEGATIVE); LEUKOCYTE ESTERASE ,URINE TRACE (NEGATIVE); NITRITE,URINE NEGATIVE (NEGATIVE); PROTEIN,URINE DIPSTICK 2+ (NEGATIVE); URINE UROBILINOGEN 0.2 mg/dL (0.2 - 1)
[2018-10-16 16:51] LABS: BACTERIA,URINE FEW /HPF; EPITHELIAL CELLS,URINE FEW /LPF; WBC,URINE (MAN) >50 /HPF (0-5)
[2018-10-16] MEDS ORDERED: SODIUM CHLORIDE FLUSH 10 ML SYR INJ PRN (17:15)
[2018-10-16] MEDS ORDERED: ASPIRIN 81 MG CHEW TAB PO ONE (17:15)
[2018-10-16] MEDS ORDERED: ONDANSETRON HCL INJ 2 MG/ML VIAL IV PRN (17:15)
[2018-10-16] MEDS: SODIUM CHLORIDE 0.9% 1000ML 1,000 ML IV SCH (17:35)
[2018-10-16] MEDS: MEROPENEM 1GM 100 ML IV SCH (17:47)
[2018-10-16] MEDS: FAMOTIDINE 20 MG/2 ML VIAL IV SCH (18:10)
[2018-10-16] MEDS: VANCOMYCIN 1GM/NS 250 ML 250 ML IV SCH (19:07)
--- NOTE | 2018-10-16 19:28 | NUR ---
received report from michael padilla, pt resting with eyes closed, easily aroused, skin w/d resp nonlab. pt states she feels better, spo2 89% on 4l nc, changed to 50% venti-mask, spo2 up to 93%
--- NOTE | 2018-10-16 21:20 | NUR ---
FAMILY MEMBER LEFT, STATES HE HAS TO WORK TOMORROW, PT RESTING WITH EYES CLOSED, EASILY AROUSED, DENIES COMPLAINTS AT PRESENT.
[2018-10-16 23:36] LABS: CREATINE KINASE 127 IU/L (29-168)
[2018-10-17] VITALS (13 sets, daily range): BP systolic 93–171; BP diastolic 49–100
[2018-10-17] MEDS: MEROPENEM 1GM 100 ML IV SCH ×3 (02:54→16:57)
[2018-10-17] MEDS: ACETAMINOPHEN 1000 MG/100 ML IV PRN ×2 (02:54→12:13)
--- NOTE | 2018-10-17 03:30 | NUR ---
Patient had shivering, BP:136/100, HR:148,Resp:30 and Temp:98.0 and Spo2: 99%. Assisted to covering with warm blankets and given IV Ofirmev 100mg/100ml as order. Will continue to monitor.
[2018-10-17] MEDS: SODIUM CHLORIDE 0.9% 1000ML 1,000 ML IV SCH ×3 (05:54→21:00)
[2018-10-17] MEDS: VANCOMYCIN 1GM/NS 250 ML 250 ML IV SCH ×2 (05:55→18:00)
--- NOTE | 2018-10-17 06:26 | NUR ---
Patient assisted to applied Mepilex dressing on her stage II wound on her right upper buttock. Patient tolerated well. Will continue to monitor.
[2018-10-17 06:53] LABS: BASOPHILS # (AUTO) 0.1 (0.0-0.1); BASOPHILS % 0.6 % (0.0-1.0); EOSINOPHILS # (AUTO) 0.1 (0.0-0.4); EOSINOPHILS % 0.5 % (0.0-6.0); HEMATOCRIT 34.2 % (34.2-44.1); HEMOGLOBIN 11.1 g/dL (12.0-16.0); LYMPHOCYTES # (AUTO) 0.9 (1.0-3.2); LYMPHOCYTES % 5.9 % (18.0-39.1); MEAN CORPUSCULAR HEMOGLOBIN 31.9 pg (28-32); MEAN CORPUSCULAR HGB CONC 32.5 g/dL (31-35); MEAN CORPUSCULAR VOLUME 98.3 fL (81-99); MONOCYTES # (AUTO) 1.2 (0.2-0.8); MONOCYTES % 8.1 % (4.4-11.3); NEUTROPHILS # (AUTO) 12.2 (2.1-6.9); NEUTROPHILS % 83.5 % (38.7-80.0); PLATELET COUNT 225 x10e3/uL (140-360); RED BLOOD COUNT 3.48 x10e6/uL (3.6-5.1); RED CELL DISTRIBUTION WIDTH 17.1 % (11.7-14.4)
--- NOTE | 2018-10-17 06:57 | NUR ---
Report given to AM nurse,walking round done.
[2018-10-17 07:16] LABS: ALANINE AMINOTRANSFERASE 20 IU/L (0-55); ALBUMIN 2.2 g/dL (3.5-5.0); ALBUMIN/GLOBULIN RATIO 0.6 (0.8-2.0); ALKALINE PHOSPHATASE 72 IU/L (40-150); ANION GAP 11.3 mmol/L (8-16); BLOOD UREA NITROGEN 8 mg/dL (7-26); BUN/CREATININE RATIO 13 (6-25); CALCIUM 7.8 mg/dL (8.4-10.2); CARBON DIOXIDE 21 mmol/L (22-29); CHLORIDE 111 mmol/L (98-107); CREATININE, SERUM 0.62 mg/dL (0.57-1.11); EST GLOMERULAR FILTRATION RATE > 60 ML/MIN (60-); GLUCOSE 82 mg/dL (74-118); MAGNESIUM 1.5 MG/DL (1.3-2.1); POTASSIUM 3.3 mmol/L (3.5-5.1); SODIUM 140 mmol/L (136-145)
[2018-10-17 07:35] LABS: CREATINE KINASE MB 1.4 ng/mL (0-5.0)
[2018-10-17 07:38] LABS: FREE T4 (FREE THYROXINE) 1.14 ng/dL (0.9-1.8); THYROID STIMULATING HORMONE 0.486 uIU/mL (0.350-4.940)
[2018-10-17 07:57] LABS: ANISOCYTOSIS S; BAND NEUTROPHILS % (MANUAL) 6 %; LYMPHOCYTES % (MANUAL) 4 % (19-48); MONOCYTES % (MANUAL) 8 % (3.4-9.0); NEUTROPHILS % (MANUAL) 79 % (40-74); PLATELET ESTIMATE ADEQUATE; PLATELET MORPHOLOGY COMMENT NORMAL; POIKILOCYTOSIS S; RBC MORPHOLOGY COMMENT NORMAL
[2018-10-17] MEDS ORDERED: POTASSIUM CHLORIDE 20 MEQ TAB CR PO ONE (08:30)
[2018-10-17] MEDS: FAMOTIDINE 20 MG/2 ML VIAL IV SCH ×3 (08:37→16:56)
[2018-10-17] MEDS: OYST-CAL-D 500MG TABLET PO SCH ×2 (08:37→16:56)
[2018-10-17] MEDS: METOPROLOL TARTRATE 25 MG TAB PO SCH (11:25)
[2018-10-17] MEDS: METOPROLOL TARTRATE INJ 1 MG/ML VIAL IV PRN ×2 (11:30→19:45)
--- NOTE | 2018-10-17 12:00 | NUR ---
Portfolio Management Marketing to bedside to discuss plan of care with patient/family. CM/SW role and care transitions discussed. Anticipated discharge plan discussed along with duration of care. CM/SW discussed patients right to make decisions in care. CM/SW work hours given. Patient lives: MICHAEL LIVES WITH SON IN [facility] [address] ON THE FIRST FLOOR IN [facility]. Admit/Transfer: ED POA/Emergency contact: SOHAIL ROSE: [phone] Current/Previous Home Health: NONE PCP/Follow-up Care: DR. ANSON CA Current/Previous DME: PATENT USES WHEELCHAIR AND ROLLING WALKER Other Services: NONE AT THIS TIME Employment Status: RETIRED Areas of Concerns: PATIENT MOBILITY Referral Needs: SNF VS LTAC Education Needs: NONE AT THIS TIME IMM/OLSEN given and signed (if applicable): N/A Goal for discharge: PATIENT TO BE PLACED IN APPROPRIATE LEVEL OF CARE TO RETURN TO BASELINE CM left business card at the bedside with contact information. Name and number was also written on the patients whiteboard. Patient verbalized understanding of discussion. CM will follow-up with ongoing discharge and transition of care needs.
--- NOTE | 2018-10-17 12:14 | NUR ---
PATIENT hr UP TO 155. PATIENT HAS FEVER 102.0. TYLENOL 1000MG IV GIVEN. CALLED [facility] AND GOT ORDER FOR METOPROLOL 2.5MG IV PRN. DOSE GIVEN. WILL MONITOR PATIENT CLOSELY. Addendum: 10/17/18 at 1218 by Edd Wu RN note was for 11:30am.
--- NOTE | 2018-10-17 12:18 | NUR ---
HR improving and temp down to 100.4
--- NOTE | 2018-10-17 13:40 | NUR ---
Visit made by the Spiritual Care Department Pastoral Visitor, Smita Eric. PV provided pastoral presence, prayer, hospitality, and supportive listening. Pastoral Visitor informed pt/family of the scope of [facility] and availability. DANIEL WALSH Music Copyist Spiritual Care Department O: [phone] Pager: [phone] ([phone] number calling from)
--- NOTE | 2018-10-17 14:05 | NUR ---
WOUND CARE NURSE CONSULTATION. 78 YEAR OLD FEMALE ADMITTED TO [facility] WITH SEPSIS AND UTI, HEAD TO TOE SKIN ASSESSMENT PERFORMED TODAY PT PRESENTS WITH A 1X1X0.1 CM STAGE II PRESSURE ULCER TO RIGHT UPPER BUTTOCK. THERE ARE NO OTHER AREAS OF CONCERN NOTED AT THIS TIME. NO S/S OF INFECTION. PT EDUCATED ON PLAN OF CARE AND PRESSURE RELIEF TO THE AFFECTED AREA, STATES UNDERSTANDING. LABS: WBC: 14.60 ALB: 2.2 RECOMMENDATIONS: APPLY VENELEX OINTMENT TO RIGHT UPPER BUTTOCK BID AND COVER WITH FOAM DRESSING. TURN PT EVERY TWO HOURS AND PRN. CONTINUE WITH BILATERAL HEEL PROTECTORS CONTINUE WITH ALTERNATING LOW AIR LOSS MATTRESS. THANKS FOR THIS CONSULTATION. Addendum: 10/17/18 at 1407 by Grecia Noble RN Amended: Links added.
--- NOTE | 2018-10-17 15:40 | NUR ---
Nutrition Intervention Note RD Recommendation(s) for Physician: -Continue cardiac diet as ordered; diet texture per TIPPLE OPERATOR -Rec MVi w/ minerals and vitamin C for wound healing -Rec Tommy BID to support healing -Consider Ensure compact BID if PO < 50% -Encourage PO and hydration Plan of Care: RD following, monitoring for tolerance and adequacy, ONS rec Nutrition reason for involvement: RN consult no reason stated RD Assessment 10/17 - Chart reviewed. 78 yo F, who is admitted for fever. Visited pt in the room. Pt appears to be very lethargic. Pt reports eating less than usual for maybe over a week. Pt denies any nausea or vomiting. LBM unknown. Per RN, pt seems to choke when drinking fluids. MBS is scheduled for today. Pt doesnt think she lost any weight recently. No complain of chewing difficulty. No family on bedside to provide hx. RD rec MVi w/ minerals and vitamin C for wound healing; discussed with nursing. Will continue to monitor and follow. Principal Problems/Diagnoses: fever, UTI, sepsis PMH: No H& P on chart GI: abd soft, non-tender, round, flatus present Skin: stage II pressure ulcer to right upper buttock per wound care Labs: (10/17) K 3.3 L, Ca 7.8 L Meds: pepcid, abx, oscal, NaCl Ht: 62in Wt: 143.19lb BMI: 26.2kg/m2 IBW: 110in Malnutrition Evaluation (10/17/18) The patient does not meet criteria for a specified degree of malnutrition at this time. Will re-evaluate at follow-up as appropriate. Energy intake: <50% of estimated energy requirements for >5 days Weight loss: None per pt Fat loss: None upon observation Muscle loss: None upon observation Supporting Evidence: Fluid accumulation: unable to evaluate Functional Status: unable to evaluate Nutrition Prescription (Diet Order): cardiac diet Diet Adequacy: N/A, planned for MBS today Diet Education Needs Assessment: Diet education not indicated. Nutrition Care Level: moderate Nutrition Diagnosis: Inadequate oral intake related to acute illness as evidenced by pt reports eating less than usual for over a week. Goal: Patient will meet 75-100% of estimated needs by follow up Progress: N/A Interventions: Mineral modified diet, Commercial beverage, Commercial food, Multivitamin/mineral supplement therapy, Collaboration with other providers Monitoring/Evaluation: Total energy intake, Total protein intake, Modified diet, Liquid supplement, Weight change Signed: Mary Brice MS, RD, LD
[2018-10-17] MEDS: PENTOXIFYLLINE 400 MG TAB CR PO SCH (16:56)
[2018-10-17] MEDS: BALSAM PERU/CASTOR OIL 60 GM OINT...G. TP SCH (16:57)
--- NOTE | 2018-10-17 19:30 | NUR ---
Patient had shivering, BP:171/100, HR:109,Resp:30 and Temp:98.0 and Spo2: 99%. Assisted to covering with warm blankets and given IV Ofirmev 100mg/100ml and IV metoprolol 2.5mg for high BP as ordered. Family in the bedside.Will continue to monitor.
[2018-10-17] MEDS ORDERED: ACETAMINOPHEN 1000 MG/100 ML IV NR (19:48)
[2018-10-18] MEDS: MEROPENEM 1GM 100 ML IV SCH ×3 (02:07→18:00)
--- NOTE | 2018-10-18 03:45 | NUR ---
Patient had moderated klarissa DICKERSON, assisted to cleaned and changed pads. Applied diaper on. Will continue to monitor.
[2018-10-18 03:48] LABS: BASOPHILS # (AUTO) 0.1 (0.0-0.1); BASOPHILS % 0.8 % (0.0-1.0); EOSINOPHILS # (AUTO) 0.3 (0.0-0.4); EOSINOPHILS % 3.1 % (0.0-6.0); HEMATOCRIT 36.8 % (34.2-44.1); HEMOGLOBIN 12.1 g/dL (12.0-16.0); LYMPHOCYTES # (AUTO) 1.2 (1.0-3.2); LYMPHOCYTES % 11.1 % (18.0-39.1); MEAN CORPUSCULAR HEMOGLOBIN 31.5 pg (28-32); MEAN CORPUSCULAR HGB CONC 32.9 g/dL (31-35); MEAN CORPUSCULAR VOLUME 95.8 fL (81-99); MONOCYTES # (AUTO) 0.7 (0.2-0.8); MONOCYTES % 6.4 % (4.4-11.3); NEUTROPHILS # (AUTO) 8.1 (2.1-6.9); NEUTROPHILS % 77.9 % (38.7-80.0); PLATELET COUNT 224 x10e3/uL (140-360); RED BLOOD COUNT 3.84 x10e6/uL (3.6-5.1); RED CELL DISTRIBUTION WIDTH 17.1 % (11.7-14.4)
[2018-10-18 04:04] LABS: ANION GAP 16.1 mmol/L (8-16); BLOOD UREA NITROGEN 8 mg/dL (7-26); BUN/CREATININE RATIO 12 (6-25); CARBON DIOXIDE 21 mmol/L (22-29); CHLORIDE 105 mmol/L (98-107); CREATININE, SERUM 0.65 mg/dL (0.57-1.11); EST GLOMERULAR FILTRATION RATE > 60 ML/MIN (60-); GLUCOSE 86 mg/dL (74-118); MAGNESIUM 1.6 MG/DL (1.3-2.1); POTASSIUM 3.1 mmol/L (3.5-5.1); SODIUM 139 mmol/L (136-145)
[2018-10-18 04:09] LABS: CALCIUM 9.1 mg/dL (8.4-10.2)
[2018-10-18] MEDS: METOPROLOL TARTRATE INJ 1 MG/ML VIAL IV PRN (04:27)
[2018-10-18 04:28] VITALS: BP 158/97
--- NOTE | 2018-10-18 05:15 | NUR ---
New IV started on left AC 20g.
[2018-10-18] MEDS: VANCOMYCIN 1GM/NS 250 ML 250 ML IV SCH (05:49)
[2018-10-18] MEDS: LEVOTHYROXINE SODIUM 75 MCG TAB PO SCH (05:49)
[2018-10-18 05:51] LABS: ANISOCYTOSIS S; BAND NEUTROPHILS % (MANUAL) 7 %; EOSINOPHILS % (MANUAL) 3 % (0-7); LYMPHOCYTES % (MANUAL) 10 % (19-48); MONOCYTES % (MANUAL) 4 % (3.4-9.0); NEUTROPHILS % (MANUAL) 76 % (40-74); PLATELET MORPHOLOGY COMMENT NORMAL; POIKILOCYTOSIS S; RBC MORPHOLOGY COMMENT NORMAL
[2018-10-18 05:52] LABS: PLATELET ESTIMATE ADEQUATE
[2018-10-18 06:08] LABS: ABG HCO3 20 mmol/L (23-28); ABG PCO2 30 mmHg (41-51); ABG PH 7.43 (7.31-7.41); ABG PO2 101 mmHg (80-105)
[2018-10-18] MEDS: ACETAMINOPHEN 1000 MG/100 ML IV PRN ×2 (06:17→16:54)
--- NOTE | 2018-10-18 07:00 | NUR ---
PATIENT RECEIVED ON LT SIDE; NO SIGNS OF ANY DISTRESS ON BEDSIDE ROUNDING
--- NOTE | 2018-10-18 07:22 | NUR ---
Report given to AM nurse Dinata , walking round done.
[2018-10-18] MEDS ORDERED: ATORVASTATIN 10 MG TAB PO SCH (09:00)
[2018-10-18] MEDS: BALSAM PERU/CASTOR OIL 60 GM OINT...G. TP SCH ×2 (09:00→17:00)
[2018-10-18] MEDS: SODIUM CHLORIDE 0.9% 1000ML 1,000 ML IV SCH ×2 (09:01→19:35)
[2018-10-18] MEDS ORDERED: CHLORASEPTIC SPRAY 177 ML BTL MM PRN (09:15)
[2018-10-18] MEDS ORDERED: NON-FORMULARY MEDICATION (Nifedipine (Nifedipine Er) 1 TAB) PO SCH (09:15)
[2018-10-18] MEDS ORDERED: POTASSIUM CHLORIDE 20MEQ/100ML 200 ML IV ONE (09:15)
[2018-10-18] MEDS: PANTOPRAZOLE SOD 40 MG TABEC PO SCH (09:38)
[2018-10-18] MEDS: FAMOTIDINE 20 MG/2 ML VIAL IV SCH ×2 (09:38→17:00)
[2018-10-18] MEDS: OYST-CAL-D 500MG TABLET PO SCH ×2 (09:39→17:00)
[2018-10-18] MEDS: PENTOXIFYLLINE 400 MG TAB CR PO SCH ×2 (09:39→17:00)
[2018-10-18] MEDS: METOPROLOL TARTRATE 25 MG TAB PO SCH ×2 (09:39→17:00)
[2018-10-18] MEDS: NIFEDIPINE CR 30 MG TAB PO SCH (09:48)
[2018-10-18 09:58] VITALS: BP 126/70
--- NOTE | 2018-10-18 10:00 | NUR ---
PT REPOSITIONED Patient after working with her.
[2018-10-18 11:58] VITALS: BP 129/65
--- NOTE | 2018-10-18 12:35 | NUR ---
PT HAD A BM; FERN AND CATHETER CARE GIVEN. PT REPOSITION FOR LUNCH. GRANDDAUGHTER AT BEDSIDE.
--- NOTE | 2018-10-18 13:30 | NUR ---
DR MCCLOUD SPOKE WITH PT ABOUT HER DISCHARGE PLANNING
--- NOTE | 2018-10-18 14:20 | NUR ---
PT REPOSITION AGAIN FOR COMFORT AND PREVENTION
--- NOTE | 2018-10-18 16:45 | NUR ---
PT HAS A TEMP OF 101. COVERS REMOVED AND FACE AND ARMS WIPE DOWN
--- NOTE | 2018-10-18 18:00 | NUR ---
TEMP IS NOW 100. AND RESP RATE HAS DECREASE FROM 33 TO 23. PT NOT WANTING TO EAT ANYTHING AT THIS. WILL TRY AGAIN LATER
--- NOTE | 2018-10-18 19:00 | NUR ---
TEMP NOW 98.7. BEDSIDE REPORT GIVEN TO ON COMING SHIFT
[2018-10-18] MEDS ORDERED: POTASSIUM CHLORIDE 20MEQ/100ML 100 ML IV ONE (19:15)
[2018-10-18] MEDS ORDERED: CEFTRIAXONE SOD 1 GM/NS 50 ML 50 ML IV SCH (19:15)
[2018-10-18] MEDS ORDERED: CEFTRIAXONE SOD 1 GM VIAL IV SCH (19:15)
[2018-10-18] MEDS ORDERED: FUROSEMIDE INJ 10 MG/ML 4 ML VIAL IV ONE (19:15)
--- NOTE | 2018-10-18 19:15 | NUR ---
pt received. pt assessed. no ss of distress noted. bueno draining to gravity. venti mask in place. heel protectors in place. bedside monitor in place. no co pain at time. will cont to follow poc. call toro within reach.
[2018-10-18 20:00] VITALS: BP 103/60
[2018-10-18] MEDS: ATORVASTATIN 10 MG TAB PO SCH (20:46)
[2018-10-19] VITALS (8 sets, daily range): BP systolic 109–136; BP diastolic 49–79
--- NOTE | 2018-10-19 03:29 | NUR ---
bed bath given at time. linen changed at time. tele reapplied at time. no ss of distress noted. no co pain at time. call toro within reach.
--- NOTE | 2018-10-19 04:00 | NUR ---
blood drawn and sent to lab at time. no distress noted. call toro within reach.
[2018-10-19 04:04] LABS: BASOPHILS # (AUTO) 0.1 (0.0-0.1); BASOPHILS % 0.5 % (0.0-1.0); EOSINOPHILS # (AUTO) 0.3 (0.0-0.4); EOSINOPHILS % 2.4 % (0.0-6.0); HEMATOCRIT 39.9 % (34.2-44.1); HEMOGLOBIN 13.2 g/dL (12.0-16.0); LYMPHOCYTES # (AUTO) 1.1 (1.0-3.2); LYMPHOCYTES % 8.4 % (18.0-39.1); MEAN CORPUSCULAR HEMOGLOBIN 31.1 pg (28-32); MEAN CORPUSCULAR HGB CONC 33.1 g/dL (31-35); MEAN CORPUSCULAR VOLUME 94.1 fL (81-99); MONOCYTES # (AUTO) 0.6 (0.2-0.8); MONOCYTES % 4.8 % (4.4-11.3); NEUTROPHILS # (AUTO) 10.7 (2.1-6.9); NEUTROPHILS % 83.4 % (38.7-80.0); PLATELET COUNT 228 x10e3/uL (140-360); RED BLOOD COUNT 4.24 x10e6/uL (3.6-5.1)
[2018-10-19 04:16] LABS: ANION GAP 14.6 mmol/L (8-16); BLOOD UREA NITROGEN 8 mg/dL (7-26); BUN/CREATININE RATIO 12 (6-25); CALCIUM 9.2 mg/dL (8.4-10.2); CARBON DIOXIDE 22 mmol/L (22-29); CHLORIDE 101 mmol/L (98-107); CREATININE, SERUM 0.65 mg/dL (0.57-1.11); EST GLOMERULAR FILTRATION RATE > 60 ML/MIN (60-); GLUCOSE 102 mg/dL (74-118); MAGNESIUM 1.5 MG/DL (1.3-2.1); POTASSIUM 3.6 mmol/L (3.5-5.1); SODIUM 134 mmol/L (136-145)
[2018-10-19] MEDS: SODIUM CHLORIDE 0.9% 1000ML 1,000 ML IV SCH ×2 (05:01→16:56)
[2018-10-19] MEDS: LEVOTHYROXINE SODIUM 75 MCG TAB PO SCH (05:24)
--- NOTE | 2018-10-19 05:25 | NUR ---
hr rechecked at time 105. no distress noted. call toro within reach.
--- NOTE | 2018-10-19 08:15 | NUR ---
PT NOTED WITH 100.5 TEMP PAGEOpal, PT PLACED ON NC AT 4L AT THIS TIME.
[2018-10-19] MEDS: PANTOPRAZOLE SOD 40 MG TABEC PO SCH (08:30)
[2018-10-19] MEDS: HYDROCODONE/APAP 5MG-325MG TAB PO PRN (08:30)
[2018-10-19] MEDS: PENTOXIFYLLINE 400 MG TAB CR PO SCH ×2 (09:17→16:57)
[2018-10-19] MEDS: METOPROLOL TARTRATE 25 MG TAB PO SCH ×2 (09:17→16:57)
[2018-10-19] MEDS: NIFEDIPINE CR 30 MG TAB PO SCH (09:17)
[2018-10-19] MEDS: FAMOTIDINE 20 MG/2 ML VIAL IV SCH ×2 (09:17→16:56)
[2018-10-19] MEDS: OYST-CAL-D 500MG TABLET PO SCH ×2 (09:17→16:57)
[2018-10-19] MEDS: BALSAM PERU/CASTOR OIL 60 GM OINT...G. TP SCH ×2 (09:18→16:57)
--- NOTE | 2018-10-19 09:25 | Diagnostic Imaging Report ---
PROCEDURE:X-RAY MODIFIED BARIUM SWALLOW COMPARISON:None. INDICATIONS:DIFFICULTY SWALLOWING DISCUSSION:Fluoroscopic examination was performed in conjunction with speech pathology, during swallowing of a variety of thin and thick liquid consistencies. Examination showed premature spillage over the base of the tongue with delayed swallow. Laryngeal penetration was noted with thin liquids. Trace to minimal aspiration was seen with thin liquids. Trace to maximal vallecular residue was noted with all trials. CONCLUSION:Moderate oral and moderate pharyngeal dysphagia with aspiration of thin liquids and moderate to severe pharyngeal residue. Please see the report from speech pathology for complete details. Jacob Zacarias M.D. Dictated by: Jacob Zacarias M.D. on 10/19/2018 at 9:35 Electronically approved by: Jacob Zacarias M.D. on 10/19/2018 at 9:35
[2018-10-19] MEDS ORDERED: ACETAMINOPHEN 325 MG TAB PO PRN (10:45)
--- NOTE | 2018-10-19 12:31 | Diagnostic Imaging Report ---
Examination: Single AP view of the chest. COMPARISON: 10/16/2018 INDICATION: Concern for pneumonia DISCUSSION: Lung volumes remain low. Worsening right lower lung airspace disease. Stable cardiomediastinal contour with tortuosity and atherosclerotic calcification of the thoracic aorta. Left apical calcified granuloma. Biapical pleural-parenchymal scar. No acute osseous abnormality. Enteric contrast material opacifies the visualized portions of the colon related to modified barium swallow 10/17/2018. IMPRESSION: Worsening airspace disease in the right lung base which may indicate atelectasis, aspiration pneumonitis, or pneumonia. Continued radiographic follow-up is suggested. Signed by: Dr. Edis Villegas M.D. on 10/19/2018 12:28 PM
--- NOTE | 2018-10-19 12:46 | NUR ---
[employer]LECTION SPECIALIST NOTIFIED OF PT CXR RESULTS, RECEIVED ORDERS. WILL CONTINUE TO MONITOR
--- NOTE | 2018-10-19 16:12 | NUR ---
CM SPOKE TO PATIENT AT [facility] REGARDING [facility] EVAL RECOMMENDATION FROM MD. PATIENT INFORMED OF [facility] SERVICES AND CHOICES BASED ON HER INSURANCE. PATIENT CHOSE [facility]. CHOICE LETTER SIGNED AND PLACED IN CHART. CLINICAL SEN TO [facility]. JUAN SPOKE TO HUME TO CONFIRM CLINICAL WAS SENT. RESIDENT TRANSFER FORM AND PASRR INITIATED AND PLACED IN PACKET ON CHART. PENDING AUTH FROM INSURANCE FOR TRANSFER TO [facility] FACILITY: [facility] Address: [address] [place], [place] [address]
--- NOTE | 2018-10-19 16:50 | NUR ---
NOTIFIED BASILIA LEON PT WENT INTO RESP DISTRESS RESP AT 30-38 HR 130'S TEMP AT 99.9 SATS AT 95% NC. RECEIVED ORDERS, THIS RN TO MEDICATE FOR FEVER, METOPROLOL FOR ELEVATED HR GIVEN AT THIS TIME.
--- NOTE | 2018-10-19 16:55 | NUR ---
Nutrition Intervention Note RD Recommendation(s) for Physician: - Continue cardiac diet as ordered; diet texture per TELEPHONE CLEANER - Rec MVi w/ minerals and vitamin C for wound healing - Rec Tommy BID to support healing - Consider Ensure compact BID if PO < 50% - Encourage PO and hydration Plan of Care: RD following, monitoring for tolerance and adequacy, ONS rec Nutrition reason for involvement: Follow up RD Assessment 10/19 Chart reviewed. Pt was discussed during rounds. TELEPHONE CLEANER saw pt and provided rec on diet texture modification. Visited pt in the room. Despite pt appears to be uncomfortable, pt is able to consume ~75% of lunch today. Pt is tolerating modified diet and fluids. No GI complains noted. LBM 10/18, normal per pt. Will continue to monitor and follow. 10/17 - Chart reviewed. 78 yo F, who is admitted for fever. Visited pt in the room. Pt appears to be very lethargic. Pt reports eating less than usual for maybe over a week. Pt denies any nausea or vomiting. LBM unknown. Per RN, pt seems to choke when drinking fluids. MBS is scheduled for today. Pt doesnt think she lost any weight recently. No complain of chewing difficulty. No family on bedside to provide hx. RD rec MVi w/ minerals and vitamin C for wound healing; discussed with nursing. Will continue to monitor and follow. Principal Problems/Diagnoses: fever, UTI, sepsis PMH: No H& P on chart GI: abd soft, non-tender, flatus present Skin: stage II pressure ulcer to right upper buttock per wound care Labs: (10/19) Na 134 L (10/17) K 3.3 L, Ca 7.8 L Meds: pepcid, oscal, protonix Ht: 62in Wt: 143.19lb 10/17, 139lb 10/18 BMI: 26.2kg/m2 IBW: 110in Malnutrition Evaluation (10/17/18) The patient does not meet criteria for a specified degree of malnutrition at this time. Will re-evaluate at follow-up as appropriate. Energy intake: <50% of estimated energy requirements for >5 days Weight loss: None per pt Fat loss: None upon observation Muscle loss: None upon observation Supporting Evidence: Fluid accumulation: unable to evaluate Functional Status: unable to evaluate Nutrition Prescription (Diet Order): cardiac diet Diet Adequacy: Meeting estimated protein and calorie needs Diet Education Needs Assessment: Diet education not indicated. Nutrition Care Level: low Nutrition Diagnosis: None Goal: Patient will meet 75-100% of estimated needs by follow up Progress: Goal met Interventions: Mineral modified diet, Commercial beverage, Commercial food, Multivitamin/mineral supplement therapy, Collaboration with other providers Monitoring/Evaluation: Total energy intake, Total protein intake, Modified diet, Liquid supplement, Weight change Signed: Mary Brice MS, RD, LD
[2018-10-19] MEDS ORDERED: VANCOMYCIN 1GM/NS 250 ML 250 ML IV SCH (17:00)
--- NOTE | 2018-10-19 17:05 | NUR ---
SPOKE TO RECEIVED ORDERS, PL TO BE PLACED ON BIPAP
[2018-10-19] MEDS ORDERED: FUROSEMIDE INJ 10 MG/ML 4 ML VIAL IV ONE (17:15)
--- NOTE | 2018-10-19 17:15 | NUR ---
PT PLACED ON BIPAP, MEDICATIONS GIVEN
--- NOTE | 2018-10-19 17:30 | NUR ---
PT HR 125-130, SATS AT 98%, RESP 20-25 BREATHING STILL LABORED BUT IMPROVING
--- NOTE | 2018-10-19 18:02 | NUR ---
SPOKE WITH REGARDING LACTIC ACID LEVELS. RECEIVED ORDERS.
--- NOTE | 2018-10-19 18:21 | NUR ---
NOTIFIED BASILIA LEON OF SEPSIS PROTOCOL. NO BOLUS TO BE GIVEN AT THIS TIME.
[2018-10-19] MEDS: MEROPENEM 500MG 500 MG in SODIUM CHLORIDE 0.9% 50ML 50 ML IV SCH (18:28)
--- NOTE | 2018-10-19 19:45 | NUR ---
Received report from AM nurse. Walking rounds completed.
--- NOTE | 2018-10-19 20:00 | NUR ---
Patient AAOx1, open eyes when her name is called. Patient turned q 2 hours and PRN. Diaz to bedside drainage. Yellow urine draining. IV to right EJ and left AC dry, intact and patent. Patient on Bipap. sat at 96%. Dressing to sacrum dry and intact. No noted pain or discomfort at this time.
[2018-10-19] MEDS: ATORVASTATIN 10 MG TAB PO SCH (20:28)
[2018-10-19 20:46] LABS: ABG HCO3 26 mmol/L (23-28); ABG PCO2 34 mmHg (41-51); ABG PO2 244 mmHg (80-105)
[2018-10-20] VITALS (9 sets, daily range): BP systolic 94–114; BP diastolic 43–71
[2018-10-20] MEDS ORDERED: POTASSIUM CHLORIDE 20MEQ/100ML 100 ML IV STA (03:47)
[2018-10-20 04:42] LABS: BASOPHILS # (AUTO) 0.1 (0.0-0.1); BASOPHILS % 0.9 % (0.0-1.0); EOSINOPHILS # (AUTO) 0.4 (0.0-0.4); EOSINOPHILS % 3.3 % (0.0-6.0); HEMOGLOBIN 10.5 g/dL (12.0-16.0); LYMPHOCYTES # (AUTO) 2.6 (1.0-3.2); LYMPHOCYTES % 24.3 % (18.0-39.1); MEAN CORPUSCULAR HEMOGLOBIN 31.2 pg (28-32); MEAN CORPUSCULAR HGB CONC 31.8 g/dL (31-35); MONOCYTES # (AUTO) 1.7 (0.2-0.8); NEUTROPHILS # (AUTO) 5.9 (2.1-6.9); NEUTROPHILS % 54.9 % (38.7-80.0); PLATELET COUNT 182 x10e3/uL (140-360); RED BLOOD COUNT 3.37 x10e6/uL (3.6-5.1)
[2018-10-20 04:45] LABS: MEAN CORPUSCULAR VOLUME 97.9 fL (81-99)
[2018-10-20] MEDS: VANCOMYCIN 1GM/NS 250 ML 250 ML IV SCH ×2 (05:00→17:03)
[2018-10-20 05:11] LABS: ANION GAP 11.5 mmol/L (8-16); BUN/CREATININE RATIO 21 (6-25); CALCIUM 8.9 mg/dL (8.4-10.2); CARBON DIOXIDE 25 mmol/L (22-29); CHLORIDE 104 mmol/L (98-107); CREATININE, SERUM 0.77 mg/dL (0.57-1.11); EST GLOMERULAR FILTRATION RATE > 60 ML/MIN (60-); GLUCOSE 93 mg/dL (74-118); MAGNESIUM 1.7 MG/DL (1.3-2.1); POTASSIUM 3.5 mmol/L (3.5-5.1); SODIUM 137 mmol/L (136-145)
[2018-10-20 05:13] LABS: BLOOD UREA NITROGEN 16 mg/dL (7-26)
--- NOTE | 2018-10-20 05:20 | Consultation ---
DATE OF CONSULTATION: October 20, 2018 PULMONARY MEDICINE CONSULT PRIMARY CARE DOCTOR: Dr. Edgard Ponce HISTORY: Mrs. Dela Cruz is a pleasant 78-year-old female with acute respiratory failure. The patient presented to [facility] on October 16, 2018. The patient had decreased mental status. The patient was having associated weakness. No hypoglycemia on testing. The patient came to the emergency room. Temperature of 102 degrees Fahrenheit. The patient originally with normal chest x-ray. CT of the head with no acute changes. The patient with urinalysis with 50-100 white blood cells per high power field. The patient was admitted to the hospital for a urinary tract infection and severe sepsis. During the course of hospitalization, the patient's heart rate originally in the 70s and 80s, and had trended up to 125-130. Urine culture in the meanwhile has grown E. coli multi-sensitive strain. Blood cultures are negative times 2. The patient was becoming more short of breath. Chest x-ray evolved to have bilateral pulmonary infiltrates, mild to moderate. She required BiPAP for rescue. The patient at this time walks with a walker. She has an exercise tolerance of about 2 rooms on a good day. 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 She was given BiPAP for rescue. PAST MEDICAL HISTORY: Hypertension, debility, chronic use of Remicade, hypothyroidism, major depression, osteoarthritis, possible dementia. SOCIAL HISTORY: No smoking. No drinking. No drugs. She is from [place] and [place] They used wood stoves for heating and cooking. 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 She moved to [facility], eventually and then to [place]. FAMILY HISTORY: Noncontributory. REVIEW OF SYSTEMS: Cannot get as she is not talking. She is on respiratory support device. PHYSICAL EXAMINATION VITALS: Afebrile. Vital signs noted per electronic record. Heart rate has now come down to 85 again. HEENT: Normocephalic and atraumatic. NECK: Supple. Throat midline. LUNGS: Bilateral air entry is moderate. Few crackles and few rhonchi. CARDIOVASCULAR: S1 and S2. No murmurs, rubs or gallops. ABDOMEN: Soft and nontender. EXTREMITIES: No clubbing. No cyanosis. No edema. There is some swan neck deformities and damaged fingers that are shortened. INTEGUMENT: No rash. No purpura. Potassium 3.6, BUN 8, creatinine 0.7. White count 13, hematocrit 40 and platelets 228,000. 7.43/30/101. Improved to 7.5/34/244 on BiPAP. BNP is 102. Lactic acid 55. Chest x-ray with bilateral infiltrates this day. IMPRESSION AND PLAN 1. Acute respiratory failure: On BiPAP. 2. Probably secondary lung injury due to extra pulmonary sepsis. 3. Severe urinary tract infection. 4. Cannot rule out primary pneumonia. 5. Immunosuppressed state: On biologic therapy. 6. History of rheumatoid arthritis. 7. Baseline debility and walks 2 rooms, max with a walker on a good day. 8. History of thyroid abnormality. 9. Depression. 10. Osteoarthritis. 11. Hypertension. 12. Possible dementia. Continue BiPAP and will wean off as she improves. Give more diuretics. Start and continue antibiotics per infection expert. Will follow along closely. On May 07, 2018, CT of the abdomen and pelvis was done with ground-glass opacities in the lungs. There is consideration if the patient has active cardiomyopathy and fluid overload versus opportunistic illness versus rheumatoid lung versus medication related side effects of the lung. The patient eventually will need repeat CT scan when her x-ray is better. Will also recommend to consider echocardiogram to check ejection fraction. I would like to thank Dr. Guerra and Heidi for allowing me the chance to participate in the care of Mrs. Dela Cruz. Please do not hesitate to contact me if I can help in any way. In addition, thank you, Dr. Ponce, for allowing me a chance to participate in Mrs. Dela Cruz's care. Job#: [id number] LORENZA
--- NOTE | 2018-10-20 05:40 | Diagnostic Imaging Report ---
EXAMINATION: CHEST SINGLE (PORTABLE) INDICATION: CHF. COMPARISON: 10/19/2018 FINDINGS: AP view TUBES and LINES: None. LUNGS: Lungs are well inflated. Stable right basilar airspace disease. Left apical calcified granuloma. PLEURA: No pleural effusion or pneumothorax. HEART AND MEDIASTINUM: Calcified and mildly tortuous aorta. The cardiomediastinal silhouette is otherwise unremarkable. BONES AND SOFT TISSUES: No acute osseous lesion. Soft tissues are unremarkable. UPPER ABDOMEN: No free air under the diaphragm. Enteric contrast within the visualized colon related to modified barium swallow 10/17/2018. IMPRESSION: Stable right basilar airspace disease which may represent atelectasis, aspiration, or pneumonia. Signed by: DR. Renny Christine MD on 10/20/2018 5:37 AM
[2018-10-20] MEDS: MEROPENEM 500MG 500 MG in SODIUM CHLORIDE 0.9% 50ML 50 ML IV SCH ×6 (06:00→23:32)
[2018-10-20] MEDS: LEVOTHYROXINE SODIUM 75 MCG TAB PO SCH (06:00)
--- NOTE | 2018-10-20 06:42 | NUR ---
Patient washed with gary-care completed. Repositioned in bed. Order for KCL with K level at 3.5 given as ordered.
--- NOTE | 2018-10-20 07:30 | NUR ---
Pt received in bed, asleep, awakens to verbal stimulation. AAO1-2, resp even and unlabored, lung sounds diminished. IV patent, flushed with 10cc NS. No c/o pain, no s/s distress noted. Pt turned per protocol, tolerated well. Plan of care discussed with patient, patient verbalized understanding. Call light within reach, bed alarm intact, bed in lowest position.
[2018-10-20 07:44] LABS: BAND NEUTROPHILS % (MANUAL) 4 %; EOSINOPHILS % (MANUAL) 2 % (0-7); LYMPHOCYTES % (MANUAL) 14 % (19-48); MONOCYTES % (MANUAL) 14 % (3.4-9.0); NEUTROPHILS % (MANUAL) 65 % (40-74)
[2018-10-20 07:45] LABS: ANISOCYTOSIS SLIG; HYPOCHROMASIA SLIGHT; PLATELET ESTIMATE ADEQUATE; PLATELET MORPHOLOGY COMMENT NORMAL; RBC MORPHOLOGY COMMENT NORMAL
[2018-10-20] MEDS: SODIUM CHLORIDE 0.9% 1000ML 1,000 ML IV SCH ×2 (08:21→21:01)
[2018-10-20] MEDS: BALSAM PERU/CASTOR OIL 60 GM OINT...G. TP SCH ×2 (08:35→17:04)
[2018-10-20] MEDS: FAMOTIDINE 20 MG/2 ML VIAL IV SCH ×2 (08:35→17:03)
[2018-10-20] MEDS: PANTOPRAZOLE SOD 40 MG TABEC PO SCH (08:35)
[2018-10-20] MEDS: METOPROLOL TARTRATE 25 MG TAB PO SCH ×2 (08:35→17:00)
[2018-10-20] MEDS: OYST-CAL-D 500MG TABLET PO SCH ×2 (08:35→17:04)
[2018-10-20] MEDS: PENTOXIFYLLINE 400 MG TAB CR PO SCH ×2 (08:35→17:04)
[2018-10-20] MEDS: NIFEDIPINE CR 30 MG TAB PO SCH (08:35)
[2018-10-20] MEDS: FUROSEMIDE INJ 10 MG/ML 2 ML VIAL IV SCH (08:35)
--- NOTE | 2018-10-20 10:59 | NUR ---
ST NOTE: Pt fatigued from being up with RN this AM, refused NMES to treat dysphagia today. Got thickener packets from office to give to family as requested. Pt's family asked for pt to be repositioned and RN notified and assisted pt directly. Will continue to follow. Handoff tot LAW Barragan
--- NOTE | 2018-10-20 16:11 | Consultation ---
DATE OF CONSULTATION: REASON FOR CONSULTATION: Sepsis and septic shock. This is a 78-year-old white female who has come to the emergency room here on October 16, 2018, with altered mental status. The patient had weakness and not feeling well. She was found to be hypoglycemic. She had fever of 102. Patient had a normal chest x-ray. CT scan of the head showed no acute finding. The UA showed 50-100 wbcs. She was admitted to the hospital. Blood culture was negative. Urine culture showed E. coli. Chest x-ray showed bilateral pulmonary infiltrate. The patient became worse yesterday. Had sepsis. Infectious disease was consulted. Her urine culture is showing E. coli, which above was resistant only to ampicillin and sulbactam. Yesterday, she got worse and infectious disease was consulted as mentioned above. Her laboratory data was reviewed. Her chart was reviewed. PHYSICAL EXAMINATION GENERAL: She is currently alert and confused. Does not seem to be in acute distress. VITALS: Stable now, but she has been running fever. HEENT: Normocephalic. Not icteric. NECK: Supple. CHEST: Clear. HEART: S1 and S2. No murmurs. ABDOMEN: Soft. Bowel sounds present. No tenderness. EXTREMITIES: No skin rash. Her laboratory data was reviewed. When she first came in, white count was 13.47. I came back to 10.74. Hemoglobin of 10.5. Sodium 137, potassium 3.5, creatinine of 0.77. Liver enzymes within normal limits. IMPRESSION: Sepsis secondary to pneumonia and urinary tract infection, community-acquired, but did not respond to her course of antibiotic. She was started on vancomycin and meropenem. Continue with the above. Recheck CBC. Recheck Chem panel. Will follow clinically. Will see how she is doing in the next 24-48 hours. Job#: [id number] LORENZA
[2018-10-20] MEDS: ENOXAPARIN SOD INJ 40 MG/0.4 ML SYR SC SCH (17:04)
--- NOTE | 2018-10-20 17:07 | NUR ---
CM SPOKE TO PATIENT AT BEDSIDE REGARDING NEW [facility] RECOMMENDATION FROM MD. PATIENT INFORMED OF B[facility]IC [facility] C[facility] SERVICES AND CHOICES BASED ON HER INSURANCE. PATIENT CHOSE [facility]. CHOICE LETTER SIGNED AND PLACED IN CHART. CLINICAL PICKED UP BY TACOMA LIAISON DUARTE ISLAS . MOT INITIATED AND PLACED IN PACKET ON CHART. PENDING AUTH FROM INSURANCE FOR TRANSFER TO [facility] PLACEMENT: [facility] Address: [address] [place] [address], [place] [address]
--- NOTE | 2018-10-20 18:57 | NUR ---
Report given to oncoming nurse, no questions noted at this time.
--- NOTE | 2018-10-20 19:00 | NUR ---
Report received from AM nurse Laurel. Patient received sleeping in her bed. Denied pain and no SOB. NO respiratory distress noted. Respiration even and unlabored, Spo2 maintained 98% with 4liters oxygen via nasal canula. Patient instructed to help for as needed. Bed in lower position,locked. Call toro within reach. Will continue to monitor.
--- NOTE | 2018-10-20 19:35 | NUR ---
Patient took for CT Abdomen by bed at this time.
[2018-10-20] MEDS: ATORVASTATIN 10 MG TAB PO SCH (20:46)
[2018-10-20] MEDS: HYDROCODONE/APAP 5MG-325MG TAB PO PRN (20:46)
--- NOTE | 2018-10-20 21:02 | Diagnostic Imaging Report ---
EXAM: CT Abdomen and Pelvis WITH contrast INDICATION: ^r/o infection ^[id number] ^[id number] COMPARISON: CT abdomen and pelvis 05/07/2018 TECHNIQUE: Abdomen and pelvis were scanned utilizing a multidetector helical scanner from the lung base to the pubic symphysis after administration of IV contrast. Coronal and sagittal reformations were obtained. Routine protocol was performed. Scan was performed when during portal venous phase. IV CONTRAST: 100 mL of Isovue-370 ORAL CONTRAST: None RADIATION DOSE: Total DLP: 563.3 mGy*cm Estimated effective dose: (DLP x 0.015 x size factor) mSv COMPLICATIONS: None FINDINGS: LINES and TUBES: Diaz catheter within the urinary bladder. LOWER THORAX: Minimal atelectasis in both lung bases. Possible small subcarinal lymph node measuring 0.8 cm in diameter on series 2, image 1. Mild calcifications of the aortic root and descending thoracic aorta. The right ventricle is enlarged. HEPATOBILIARY: No focal hepatic lesions. No biliary ductal dilation. GALLBLADDER: No radio-opaque stones or sludge. No wall thickening. SPLEEN: No splenomegaly. PANCREAS: No focal masses or ductal dilatation. ADRENALS: No adrenal nodules KIDNEYS/URETERS: Kidneys enhance symmetrically. No hydronephrosis. Improved right pelviectasis, now measuring 1.6 cm compared to 2.4 cm, previously. There is no dilatation of the right ureter on this exam. No cystic or solid mass lesions. No stones. GI TRACT: Retained oral contrast limits evaluation. No abnormal distention, wall thickening, or evidence of bowel obstruction. Diffuse diverticulosis throughout the sigmoid colon. Appendix is not visualized. PELVIC ORGANS/BLADDER: The urinary bladder is decompressed with Diaz catheter in place. There is interval resolution of previously seen diffuse fat stranding surrounding the urinary bladder, consistent with resolving infection. The uterus appeared normal in size. No adnexal masses. LYMPH NODES: No lymphadenopathy. VESSELS: The abdominal aorta and pelvic arteries are normal in caliber and associated with moderate atherosclerotic calcifications. 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 Distal branches appear patent. There are 2 right and single left renal arteries with associated calcified plaques in the proximal segments. PERITONEUM / RETROPERITONEUM: No free air or fluid. BONES: Multilevel degenerative changes of the lumbar spine. SOFT TISSUES: Unremarkable. IMPRESSION: 1. Interval resolution of the fat stranding surrounding the urinary bladder suggestive of resolving infection. 2. Improved right pelviectasis and normal size of the right ureter on this exam. Signed by: Dr. Kandice Winkler M.D. on 10/20/2018 8:59 PM
[2018-10-20] MEDS ORDERED: IOPAMIDOL 370 MG/ML 200 ML INFUS..BTL INJ ONE (22:17)
[2018-10-20] MEDS ORDERED: SODIUM CHLORIDE 0.9% 50ML 50 ML ONE (22:17)
[2018-10-21] VITALS (8 sets, daily range): BP systolic 107–124; BP diastolic 51–65
[2018-10-21] MEDS: HYDROCODONE/APAP 5MG-325MG TAB PO PRN (03:44)
[2018-10-21 03:59] LABS: BASOPHILS # (AUTO) 0.1 (0.0-0.1); BASOPHILS % 0.8 % (0.0-1.0); EOSINOPHILS # (AUTO) 0.4 (0.0-0.4); EOSINOPHILS % 4.7 % (0.0-6.0); HEMATOCRIT 31.8 % (34.2-44.1); HEMOGLOBIN 10.1 g/dL (12.0-16.0); LYMPHOCYTES % 23.3 % (18.0-39.1); MEAN CORPUSCULAR HGB CONC 31.8 g/dL (31-35); MEAN CORPUSCULAR VOLUME 97.5 fL (81-99); MONOCYTES # (AUTO) 0.9 (0.2-0.8); MONOCYTES % 10.7 % (4.4-11.3); NEUTROPHILS # (AUTO) 5.2 (2.1-6.9); NEUTROPHILS % 60.2 % (38.7-80.0); PLATELET COUNT 193 x10e3/uL (140-360); RED BLOOD COUNT 3.26 x10e6/uL (3.6-5.1)
[2018-10-21 04:18] LABS: ANION GAP 13.2 mmol/L (8-16); BLOOD UREA NITROGEN 15 mg/dL (7-26); BUN/CREATININE RATIO 23 (6-25); CALCIUM 8.6 mg/dL (8.4-10.2); CARBON DIOXIDE 23 mmol/L (22-29); CHLORIDE 107 mmol/L (98-107); CREATININE, SERUM 0.66 mg/dL (0.57-1.11); EST GLOMERULAR FILTRATION RATE > 60 ML/MIN (60-); GLUCOSE 86 mg/dL (74-118); MAGNESIUM 1.8 MG/DL (1.3-2.1); POTASSIUM 3.2 mmol/L (3.5-5.1); SODIUM 140 mmol/L (136-145)
[2018-10-21 04:54] LABS: FOLATE 9.9 ng/mL (7.0-15.4)
[2018-10-21] MEDS: VANCOMYCIN 1GM/NS 250 ML 250 ML IV SCH (05:00)
--- NOTE | 2018-10-21 05:45 | NUR ---
Patient Vancomycin trough:25.7 at this time. Paged to Dr. Shaw, waiting for MD's call back.
[2018-10-21] MEDS: MEROPENEM 500MG 500 MG in SODIUM CHLORIDE 0.9% 50ML 50 ML IV SCH ×4 (05:59→23:37)
[2018-10-21 06:36] LABS: FERRITIN 335.79 ng/mL (4.63-204.00)
--- NOTE | 2018-10-21 06:51 | NUR ---
Paged back again Dr. Shaw. Got call back from Dr. Shaw,informed critical labs vancomycin trough: 25.7. ordered to hold for this time.
[2018-10-21] MEDS: LEVOTHYROXINE SODIUM 75 MCG TAB PO SCH (06:53)
--- NOTE | 2018-10-21 06:57 | Diagnostic Imaging Report ---
EXAMINATION: CHEST 2 VIEWS INDICATION: Pneumonia. ^PNUEMONIA ^[id number] ^0630 ^Y COMPARISON: Chest x-ray 10/20/2018. FINDINGS: PA and lateral views TUBES and LINES: None. LUNGS: Lungs are well inflated. Increased edema and stable right basilar airspace disease. Left apical calcified granuloma. PLEURA: No pleural effusion or pneumothorax. HEART AND MEDIASTINUM: Calcified and mildly tortuous aorta. The cardiomediastinal silhouette is otherwise unremarkable. BONES AND SOFT TISSUES: No acute osseous lesion. Soft tissues are unremarkable. UPPER ABDOMEN: No free air under the diaphragm. Enteric contrast within the visualized colon related to modified barium swallow 10/17/2018. IMPRESSION: Increased edema with stable right basilar airspace disease which may represent atelectasis, aspiration, or pneumonia. Signed by: DR. Renny Christine MD on 10/21/2018 6:54 AM
--- NOTE | 2018-10-21 07:10 | NUR ---
Report given to upcoming nurse Yadi.
[2018-10-21] MEDS: PANTOPRAZOLE SOD 40 MG TABEC PO SCH (08:42)
[2018-10-21] MEDS ORDERED: POTASSIUM CHLORIDE 20 MEQ TAB CR PO NR (08:43)
[2018-10-21] MEDS: ASCORBIC ACID 500 MG TAB PO SCH ×2 (09:19→17:12)
[2018-10-21] MEDS: FERROUS SULFATE 325 MG TAB PO SCH ×2 (09:19→17:12)
[2018-10-21] MEDS: OYST-CAL-D 500MG TABLET PO SCH ×2 (09:19→17:12)
[2018-10-21] MEDS: FUROSEMIDE INJ 10 MG/ML 2 ML VIAL IV SCH (09:19)
[2018-10-21] MEDS: DOCUSATE SODIUM 100 MG CAP PO SCH ×2 (09:19→17:12)
[2018-10-21] MEDS: FAMOTIDINE 20 MG/2 ML VIAL IV SCH ×2 (09:19→17:12)
[2018-10-21] MEDS: PENTOXIFYLLINE 400 MG TAB CR PO SCH ×2 (09:20→17:12)
[2018-10-21] MEDS: BALSAM PERU/CASTOR OIL 60 GM OINT...G. TP SCH ×2 (09:20→17:12)
[2018-10-21] MEDS: METOPROLOL TARTRATE 25 MG TAB PO SCH ×2 (09:20→17:13)
[2018-10-21] MEDS: ENOXAPARIN SOD INJ 40 MG/0.4 ML SYR SC SCH (17:12)
--- NOTE | 2018-10-21 19:10 | NUR ---
Report received from AM nurse Yadi. Patient alert/oriented x3 resting in her bed. Denied pain and no SOB. No respiratory distress noted, continued on 4liters oxygen via nasal canula/ BIPAP PRN. Bed in lower position,locked. Call toro within reach. Will continue to monitor.
[2018-10-21] MEDS: ATORVASTATIN 10 MG TAB PO SCH (20:49)
[2018-10-22] VITALS (8 sets, daily range): BP systolic 128–141; BP diastolic 61–77
[2018-10-22] MEDS ORDERED: POTASSIUM CHLORIDE 20MEQ/100ML 200 ML IV PRN (03:00)
--- NOTE | 2018-10-22 04:29 | Progress Note ---
DATE: October 21, 2018 PULMONARY MEDICINE PROGRESS NOTE SUBJECTIVE: Ms. Dela Cruz was seen and examined at bedside. She is with 99% oxygen saturation. She was off BiPAP for a few hours after being on it all night. She is having some visible shortness of breath. Diaz is with good urine output. Normal saline at 50 mL/hour going in. REVIEW OF SYSTEMS: No headaches. She is tired, she tells me. OBJECTIVE VITAL SIGNS: Afebrile. Vital signs noted per electronic record. GENERAL: In no acute distress, although definitely increased work of breathing and sometimes rhonchi we could hear across the room. HEENT: Normocephalic and atraumatic. NECK: Supple. Throat midline. LUNGS: Bilateral air entry is decreased at bases, few rhonchi, few crackles. CARDIOVASCULAR: S1 and S2. No murmurs, rubs, or gallops. ABDOMEN: Soft and nontender. EXTREMITIES: No clubbing. No cyanosis. There is no oj edema. INTEGUMENT: No rash or purpura. LABORATORY DATA: Potassium 2.2, BUN 15, and creatinine 0.6. White count 9, hematocrit 32, and platelets 193. DIAGNOSTIC DATA: Chest x-ray today showed increased edema with stable right basilar airspace disease, which may represent atelectasis or aspiration pneumonia. IMPRESSION 1. Complicated urinary tract infection. 2. Pneumonitis. 3. Acute lung injury. 4. Weakness. 5. Acute respiratory failure, BiPAP salvage. 6. Superimposed fluid overload. 7. Immunosuppressed state, on biologic therapy. PLAN: At this time, we will give more potassium. Repeat blood electrolytes in the morning. Give more diuretics. Give DVT prophylaxis as she is high risk for thrombosis. Continue BiPAP intermittently as she still will need resting, it appears. Patient is still in very guarded and near-critical condition. Job#: [id number] FRANK
[2018-10-22 04:42] LABS: BASOPHILS # (AUTO) 0.1 (0.0-0.1); BASOPHILS % 0.8 % (0.0-1.0); EOSINOPHILS # (AUTO) 0.5 (0.0-0.4); EOSINOPHILS % 5.8 % (0.0-6.0); HEMATOCRIT 33.4 % (34.2-44.1); HEMOGLOBIN 10.7 g/dL (12.0-16.0); LYMPHOCYTES # (AUTO) 2.3 (1.0-3.2); LYMPHOCYTES % 27.4 % (18.0-39.1); MEAN CORPUSCULAR HEMOGLOBIN 31.6 pg (28-32); MEAN CORPUSCULAR VOLUME 98.5 fL (81-99); MONOCYTES # (AUTO) 0.9 (0.2-0.8); MONOCYTES % 10.7 % (4.4-11.3); NEUTROPHILS # (AUTO) 4.6 (2.1-6.9); NEUTROPHILS % 54.9 % (38.7-80.0); PLATELET COUNT 191 x10e3/uL (140-360); RED BLOOD COUNT 3.39 x10e6/uL (3.6-5.1); RED CELL DISTRIBUTION WIDTH 16.9 % (11.7-14.4)
[2018-10-22 04:47] LABS: ANION GAP 12.3 mmol/L (8-16); BLOOD UREA NITROGEN 12 mg/dL (7-26); BUN/CREATININE RATIO 19 (6-25); CALCIUM 8.8 mg/dL (8.4-10.2); CARBON DIOXIDE 27 mmol/L (22-29); CHLORIDE 106 mmol/L (98-107); CREATININE, SERUM 0.62 mg/dL (0.57-1.11); EST GLOMERULAR FILTRATION RATE > 60 ML/MIN (60-); GLUCOSE 77 mg/dL (74-118); MAGNESIUM 1.9 MG/DL (1.3-2.1); POTASSIUM 3.3 mmol/L (3.5-5.1); SODIUM 142 mmol/L (136-145)
[2018-10-22] MEDS: LEVOTHYROXINE SODIUM 75 MCG TAB PO SCH (05:36)
[2018-10-22] MEDS: MEROPENEM 500MG 500 MG in SODIUM CHLORIDE 0.9% 50ML 50 ML IV SCH ×3 (05:36→17:03)
--- NOTE | 2018-10-22 06:37 | Diagnostic Imaging Report ---
EXAMINATION: CHEST SINGLE (PORTABLE) INDICATION: chf COMPARISON: Chest x-ray 10/21/2018. FINDINGS: AP view. TUBES and LINES: None. LUNGS: Lungs are well inflated. Decreased edema and decreased right basilar airspace disease. Left apical calcified granuloma. PLEURA: No pleural effusion or pneumothorax. HEART AND MEDIASTINUM: Calcified and mildly tortuous aorta. The cardiomediastinal silhouette is otherwise unremarkable. BONES AND SOFT TISSUES: No acute osseous lesion. Soft tissues are unremarkable. UPPER ABDOMEN: No free air under the diaphragm. Enteric contrast within the visualized colon related to modified barium swallow 10/17/2018. IMPRESSION: Decreased edema and right basilar atelectasis/infiltrate. Signed by: DR. Renny Christine MD on 10/22/2018 6:33 AM
--- NOTE | 2018-10-22 07:03 | NUR ---
Report given to upcoming nurse Yadi.
[2018-10-22 07:34] LABS: BAND NEUTROPHILS % (MANUAL) 3 %; EOSINOPHILS % (MANUAL) 3 % (0-7); LYMPHOCYTES % (MANUAL) 32 % (19-48); MONOCYTES % (MANUAL) 6 % (3.4-9.0); NEUTROPHILS % (MANUAL) 56 % (40-74)
[2018-10-22 07:35] LABS: PLATELET ESTIMATE ADEQUATE; PLATELET MORPHOLOGY COMMENT NORMAL; RBC MORPHOLOGY COMMENT NORMAL
[2018-10-22] MEDS: ASCORBIC ACID 500 MG TAB PO SCH ×2 (08:52→17:02)
[2018-10-22] MEDS: DOCUSATE SODIUM 100 MG CAP PO SCH ×2 (08:52→17:02)
[2018-10-22] MEDS: BALSAM PERU/CASTOR OIL 60 GM OINT...G. TP SCH ×2 (08:52→17:02)
[2018-10-22] MEDS: GUAIFENESIN 600MG/DEXTROMETHORPHAN 30MG TABSR PO SCH ×2 (08:52→17:02)
[2018-10-22] MEDS: OYST-CAL-D 500MG TABLET PO SCH ×2 (08:52→17:02)
[2018-10-22] MEDS: PENTOXIFYLLINE 400 MG TAB CR PO SCH ×2 (08:52→17:02)
[2018-10-22] MEDS: FUROSEMIDE INJ 10 MG/ML 2 ML VIAL IV SCH ×2 (08:52→17:02)
[2018-10-22] MEDS: PANTOPRAZOLE SOD 40 MG TABEC PO SCH (08:52)
[2018-10-22] MEDS: FAMOTIDINE 20 MG/2 ML VIAL IV SCH ×2 (08:52→17:02)
[2018-10-22] MEDS: FERROUS SULFATE 325 MG TAB PO SCH ×2 (08:52→17:02)
[2018-10-22] MEDS: METOPROLOL TARTRATE 25 MG TAB PO SCH ×2 (08:53→17:02)
[2018-10-22] MEDS ORDERED: VANCOMYCIN 1GM/NS 250 ML 250 ML IV SCH (09:45)
[2018-10-22] MEDS ORDERED: POTASSIUM CHLORIDE 20 MEQ TAB CR PO NR (15:44)
--- NOTE | 2018-10-22 16:52 | Progress Note ---
DATE: October 22, 2018 PULMONARY MEDICINE PROGRESS NOTE SUBJECTIVE: Ms. Dela Cruz was seen and examined at bedside. She is currently on 4 liters per minute by nasal canula oxygen. She was on BiPAP at night. She is looking much better today. She ate 60% of her diet. She is alert and oriented x3 basically. She is urinating a lot on Lasix. 100% oxygen saturation. REVIEW OF SYSTEMS: No headaches, no bleeding. OBJECTIVE VITAL SIGNS: Afebrile. Vital signs noted per electronic record. GENERAL: In no acute distress, alert, calm, talking in bed. HEENT: Normocephalic, atraumatic. NECK: Supple. Throat midline. LUNGS: Bilateral air entry, few rhonchi, few rales, but better than yesterday. CARDIOVASCULAR: S1, S2. No murmurs, rubs, or gallops. ABDOMEN: Soft, nontender. EXTREMITIES: No clubbing. No cyanosis. There is no edema. She has deformed hands mainly. INTEGUMENT: No rash or purpura. LABS: Potassium 3.3, BUN 12, creatinine 0.6. Magnesium 1.9. Hematocrit 33, platelets 191. Random vancomycin level is 10. Chest x-ray with decrease edema, persistent infiltrates. IMPRESSION AND PLAN 1. Fluid overload. 2. Acute lung injury, secondary. 3. Acute respiratory failure, status post BiPAP. 4. Immunosuppressed state, related to rheumatoid arthritis. 5. Severe urinary tract infection. 6. Baseline debility. Give potassium today. Patient will continue to get diuretics; therefore, we will give her some additional potassium as well. Continue to wean her off the BiPAP totally. Oxygen per protocol. Follow up in's and out's. Encourage nutrition and give antibiotics for infection. Job#: [id number] TMOER
[2018-10-22] MEDS: ENOXAPARIN SOD INJ 40 MG/0.4 ML SYR SC SCH (17:02)
--- NOTE | 2018-10-22 20:45 | NUR ---
PATIENT INCONTINENT OF URINE ALTHOUGH SHE HAS A VARELA CATHETER INTACT. KEPT CLEAN AND DRY, REPOSITION ON HER LEFT SIDE. ALLEVYN DRESSING INTACT TO THE BUTTOCK, PATIENT DENIES PAIN, NO RESPIRATORY DISTRESS OBSERVED. CALL LIGHT WITHIN EASY REACH, PATIENT'S SON IS AT THE BEDSIDE.
[2018-10-22] MEDS: ATORVASTATIN 10 MG TAB PO SCH (21:25)
[2018-10-23] MEDS: MEROPENEM 500MG 500 MG in SODIUM CHLORIDE 0.9% 50ML 50 ML IV SCH ×2 (00:18→06:04)
--- NOTE | 2018-10-23 02:07 | NUR ---
PATIENT IS ASLEEP, SHE'S EASY TO AROUSE. NO RESPIRATORY DISTRESS OBSERVED, SHE DENIES PAIN. BED ALARM ON, CALL LIGHT WITHIN EASY REACH.
[2018-10-23 04:16] VITALS: BP 126/66
[2018-10-23 04:44] LABS: BASOPHILS # (AUTO) 0.1 (0.0-0.1); BASOPHILS % 1.1 % (0.0-1.0); EOSINOPHILS # (AUTO) 0.5 (0.0-0.4); EOSINOPHILS % 6.2 % (0.0-6.0); HEMATOCRIT 31.7 % (34.2-44.1); HEMOGLOBIN 10.3 g/dL (12.0-16.0); LYMPHOCYTES # (AUTO) 2.4 (1.0-3.2); MEAN CORPUSCULAR HEMOGLOBIN 31.1 pg (28-32); MEAN CORPUSCULAR HGB CONC 32.5 g/dL (31-35); MEAN CORPUSCULAR VOLUME 95.8 fL (81-99); MONOCYTES # (AUTO) 0.7 (0.2-0.8); MONOCYTES % 9.4 % (4.4-11.3); NEUTROPHILS # (AUTO) 3.8 (2.1-6.9); NEUTROPHILS % 50.6 % (38.7-80.0); PLATELET COUNT 221 x10e3/uL (140-360); RED BLOOD COUNT 3.31 x10e6/uL (3.6-5.1); RED CELL DISTRIBUTION WIDTH 16.7 % (11.7-14.4)
[2018-10-23 05:08] LABS: ANION GAP 11.5 mmol/L (8-16); BLOOD UREA NITROGEN 11 mg/dL (7-26); BUN/CREATININE RATIO 17 (6-25); CALCIUM 8.7 mg/dL (8.4-10.2); CARBON DIOXIDE 27 mmol/L (22-29); CHLORIDE 104 mmol/L (98-107); CREATININE, SERUM 0.65 mg/dL (0.57-1.11); EST GLOMERULAR FILTRATION RATE > 60 ML/MIN (60-); GLUCOSE 85 mg/dL (74-118); MAGNESIUM 1.7 MG/DL (1.3-2.1); POTASSIUM 3.5 mmol/L (3.5-5.1); SODIUM 139 mmol/L (136-145)
[2018-10-23] MEDS: LEVOTHYROXINE SODIUM 75 MCG TAB PO SCH (06:04)
[2018-10-23 07:07] LABS: EOSINOPHILS % (MANUAL) 6 % (0-7); HOWELL-JOLLY BODIES FEW; LYMPHOCYTES % (MANUAL) 28 % (19-48); MONOCYTES % (MANUAL) 10 % (3.4-9.0); NEUTROPHILS % (MANUAL) 55 % (40-74)
[2018-10-23 07:08] LABS: ANISOCYTOSIS SLIGHT; HYPOCHROMASIA SLIGHT; PLATELET ESTIMATE ADEQUATE; PLATELET MORPHOLOGY COMMENT NORMAL; RBC MORPHOLOGY COMMENT NORMAL
[2018-10-23 08:15] VITALS: BP 133/72
[2018-10-23] MEDS: FERROUS SULFATE 325 MG TAB PO SCH (08:46)
[2018-10-23] MEDS: FAMOTIDINE 20 MG/2 ML VIAL IV SCH (08:46)
[2018-10-23] MEDS: DOCUSATE SODIUM 100 MG CAP PO SCH (08:46)
[2018-10-23] MEDS: FUROSEMIDE INJ 10 MG/ML 2 ML VIAL IV SCH (08:46)
[2018-10-23] MEDS: OYST-CAL-D 500MG TABLET PO SCH (08:47)
[2018-10-23] MEDS: GUAIFENESIN 600MG/DEXTROMETHORPHAN 30MG TABSR PO SCH (08:47)
[2018-10-23] MEDS: ASCORBIC ACID 500 MG TAB PO SCH (08:48)
[2018-10-23] MEDS: BALSAM PERU/CASTOR OIL 60 GM OINT...G. TP SCH (08:48)
[2018-10-23] MEDS: PENTOXIFYLLINE 400 MG TAB CR PO SCH (08:48)
[2018-10-23] MEDS: METOPROLOL TARTRATE 25 MG TAB PO SCH (08:55)
[2018-10-23] MEDS ORDERED: PANTOPRAZOLE SODIUM 40 MG SUSPDR.PKT PO SCH (09:00)
[2018-10-23 09:42] VITALS: BP 111/72
[2018-10-23 10:15] VITALS: BP 109/56
[2018-10-23 11:11] VITALS: BP 109/56
[2018-10-23] MEDS ORDERED: MEROPENEM 500MG/ NS 50ML 50 ML IV SCH (12:00)
[2018-10-23] MEDS ORDERED: POTASSIUM CHLORIDE 20 MEQ TAB CR PO NR (13:45)
--- NOTE | 2018-10-23 13:57 | Progress Note ---
DATE: October 23, 2018 PULMONARY MEDICINE PROGRESS NOTE SUBJECTIVE: Ms. Dela Cruz was seen and examined at bedside. She continues to be with steady progress. She is remaining awake and conversive. She is, however, alert and oriented x1. Diaz in place with urine output. She remains diuresing on Lasix. REVIEW OF SYSTEMS: No headaches. No bleeding. OBJECTIVE VITAL SIGNS: Afebrile. Vital signs noted per electronic record. GENERAL: In no acute distress, alert and calm, although confused. HEENT: Normocephalic, atraumatic. NECK: Supple. Throat midline. LUNGS: Bilateral air entry, a few rhonchi. CARDIOVASCULAR: S1, S2. No murmurs, rubs, or gallops. ABDOMEN: Soft, nontender. EXTREMITIES: No clubbing. No cyanosis. There is no edema. INTEGUMENT: No rash. No purpura. LABS: 2.5 potassium, 11 BUN, 0.7 creatinine, 7.4 white count, 31 hematocrit. IMPRESSION AND PLAN 1. Acute respiratory failure, improved. 2. Fluid overload, improved. 3. Secondary lung injury. 4. Severe urinary tract infection. 5. Dementia, mild, with superimposed delirium. Continue current treatment. Serial neurologic exams to ensure improvement. Give more potassium today given the low normal potassium level. Continue diuretics. Will follow along closely. The patient remains in guarded condition and is at risk for multiple complications including decubitus ulcers, aspiration, other processes. Continue aspiration precautions while we encourage oral intake. Job#: [id number]
--- NOTE | 2018-10-23 15:05 | NUR ---
CM SPOKE TO CHAD LIAISON, DUARTE MEDINA. PATIENT DENIED SOLDER TECHNICIAN PLACEMENT. CM CALLED DR. MCCLOUD REGARDING DENIAL AND THAT INSURANCE FEELS THAT PATIENT IS MORE SNF APPROPRIATE. PER DR. MCCLOUD, PATIENT TO TRANSFER TO [facility]. DUARTE NOTIFIED. REPORT CALLED TO DETENTION FACILITY.
--- NOTE | 2018-10-23 15:11 | NUR ---
PATIENT BEING TRANSFERRED TO [facility] FACILITY: [facility] Address: [address] [facility], [place], [facility], [place] [address] CALL REPORT TO: ROOM #[id number] PATIENT FAMILY NOTIFIED.
[2018-10-23 15:15] VITALS: BP 125/70
--- NOTE | 2018-10-23 15:15 | NUR ---
PATIENT DISCHARGE TO [facility] DISCHARGE SUMMARY SENT WITH EMS
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
== END 2018-10-23 15:15 | DRG 871 ==
LOC: ER 14:37 → ERHOLD 17:23 → IMCU 10-17 00:45
PROVIDERS: ADMIT Internal Medicine; ATTEND Internal Medicine
DX: A41.51 Sepsis due to Escherichia coli [E. coli] (principal); J96.00 Acute respiratory failure, unspecified whether with hypoxia or hypercapnia; J69.0 Pneumonitis due to inhalation of food and vomit; R65.21 Severe sepsis with septic shock; N39.0 Urinary tract infection, site not specified; E87.1 Hypo-osmolality and hyponatremia; N17.9 Acute kidney failure, unspecified; S27.399A Other injuries of lung, unspecified, initial encounter; F03.91 Unspecified dementia, unspecified severity, with behavioral disturbance; F05 Delirium due to known physiological condition; E87.6 Hypokalemia; E83.39 Other disorders of phosphorus metabolism; M06.9 Rheumatoid arthritis, unspecified; F03.90 Unspecified dementia, unspecified severity, without behavioral disturbance, psychotic disturbance, mood disturbance, and anxiety; I10 Essential (primary) hypertension; M19.90 Unspecified osteoarthritis, unspecified site; F32.9 Major depressive disorder, single episode, unspecified; E03.9 Hypothyroidism, unspecified; E78.5 Hyperlipidemia, unspecified; E83.51 Hypocalcemia; R13.13 Dysphagia, pharyngeal phase; Z88.0 Allergy status to penicillin; Z16.24 Resistance to multiple antibiotics; Z16.12 Extended spectrum beta lactamase (ESBL) resistance; D89.9 Disorder involving the immune mechanism, unspecified
CPT/HCPCS: 36415; 36600; 51700; 70450; 71045; 71046; 74177; 74230; 80048; 80053; 80202; 81001; 82140; 82550; 82553; 82607; 82728; 82746; 82805; 82948; 83540; 83605; 83735; 83880; 84100; 84439; 84443; 84466; 84484; 85025; 85610; 85730; 87040; 87086; 87186; 93005; 93306; 94660; 96365; 96367; 96376; 97139; 99285; J0696; J1650; J1940; J2185; J3370; J3480; J7030; Q9967

== ENCOUNTER 2019-01-03 11:31 | Observation (INO) | payer MEDICARE ==
[~2019-01-03] VITALS: Ht 157.5 cm; Wt 62.1 kg
[~2019-01-03 11:31] MED LIST changes: +COLACE100 MG PO; +FOLIC ACID1 MG PO; +LEVOTHYROXINE75 MCG PO; +LOPRESSOR25 MG PO; +METHYLPREDNISOLO4 MG PO; +NIFEDIPINE ER30 MG PO; +XELJANZ; +[UNRECOGNIZED DRUG - CODE]
--- OUTSIDE RECORDS SUMMARY | 2019-01-03 11:34 | XMS REPORT | Clinical Summary ---
Author Author [facility] Organization [facility] Address Unknown Phone Unavailable Care Team Providers Care Sueding And Buffing Machine Operator Name Role Phone Jarad Fox MD PCP [...] Health Maintenance Due Date Last Done Comments SHINGLES VACCINES (#1) 1991 65+ PNEUMOCOCCAL VACCINE 2006 (1 of 2 - PCV13) PNEUMOCOCCAL 2006 POLYSACCHARIDE VACCINE AGE 65 AND OVER INFLUENZA VACCINE 06/07/2018 Results Not on fileafter 01/02/2018 Insurance Payer Benefit Subscriber ID Type Phone Address Plan / Group MEDICAID MEDICAID xxxxxxxxx Medicaid MISC MEDICARE REPLACEMENT MISC xxxxxxxx HMO MEDICARE REPLACEMEN T Advance Directives Patient has advance care planning documents on file. For more information, damion ferrara contact: Gui Jones [address] [place] [address]
[2019-01-03] MEDS ORDERED: CLINDAMYCIN 600MG / 50ML 50 ML IV STA (11:50)
[2019-01-03 13:27] LABS: BASOPHILS # (AUTO) 0.1 (0.0-0.1); BASOPHILS % 0.8 % (0.0-1.0); EOSINOPHILS % 7.7 % (0.0-6.0); HEMATOCRIT 37.9 % (34.2-44.1); HEMOGLOBIN 12.5 g/dL (12.0-16.0); LYMPHOCYTES # (AUTO) 2.2 (1.0-3.2); LYMPHOCYTES % 16.6 % (18.0-39.1); MEAN CORPUSCULAR HEMOGLOBIN 30.9 pg (28-32); MEAN CORPUSCULAR VOLUME 93.8 fL (81-99); MONOCYTES # (AUTO) 0.9 (0.2-0.8); MONOCYTES % 6.8 % (4.4-11.3); NEUTROPHILS # (AUTO) 8.9 (2.1-6.9); NEUTROPHILS % 67.7 % (38.7-80.0); PLATELET COUNT 488 x10e3/uL (140-360); RED BLOOD COUNT 4.04 x10e6/uL (3.6-5.1); RED CELL DISTRIBUTION WIDTH 15.5 % (11.7-14.4)
--- OUTSIDE RECORDS SUMMARY | 2019-01-03 14:44 | XMS REPORT | Clinical Summary ---
Author Author [facility] Organization [facility] Address Unknown Phone Unavailable Care Team Providers Care Shelter Director Name Role Phone Jarad Fox MD PCP [...] more information, damion ferrara contact: Gui Jones [address] [place] [address]
[2019-01-03] MEDS: SODIUM CHLORIDE 0.9% 1000ML 1,000 ML IV SCH ×2 (14:54→20:25)
--- NOTE | 2019-01-03 15:16 | Diagnostic Imaging Report ---
Examination: Single AP view of the chest. COMPARISON: October 22, 2018 INDICATION: Hypoxia DISCUSSION: Lines/tubes: None. Lungs: Pulmonary venous congestion. No edema. No consolidation. Left apical calcified granuloma. Pleura: There is no pleural effusion or pneumothorax. Heart and mediastinum: The heart and the mediastinum are unremarkable. Bones and soft tissues: No acute bony abnormalities. Degenerative changes in the thoracic spine. IMPRESSION: 1. Pulmonary venous congestion Signed by: Dr. Usama Garcia M.D. on 01/03/2019 3:13 PM
--- NOTE | 2019-01-03 16:04 | Diagnostic Imaging Report ---
LEFT HAND - 3 Images HISTORY: Cellulitis , pain COMPARISON: None available. FINDINGS: Per the technologist performing the exam, the patient was unable to position for the exam resulting in multiple superimposed structures, especially the fingers. Bones: Severe diffusely decreased mineralization of the osseous structures limits bone detail. Metallic screw fixates the first metacarpophalangeal joint. The proximal carpal row is predominantly absent. A subtle radiopaque density projects adjacent to the base of the first metacarpal bone. Joints: Polyarticular arthropathy with severe erosions, some of them central erosions and others in a pencil in cup type configuration. Soft tissues: Nonspecific regional soft tissue swelling. IMPRESSION: 1. 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 Potential underlying etiologies include: psoriatic arthropathy, rheumatoid arthritis, and/or erosive osteoarthropathy. 2. Severe diffuse osseous demineralization. 3. Diffuse nonspecific soft tissue swelling. 4. Multiple postsurgical changes. Signed by: Dr. Lucien Mcgarry D.O., M.M.M. on 01/03/2019 4:01 PM
[2019-01-03 19:40] LABS: ALANINE AMINOTRANSFERASE 17 IU/L (0-55); ALBUMIN 2.2 g/dL (3.5-5.0); ALBUMIN/GLOBULIN RATIO 0.4 (0.8-2.0); ALKALINE PHOSPHATASE 83 IU/L (40-150); ANION GAP 13.3 mmol/L (8-16); BLOOD UREA NITROGEN 14 mg/dL (7-26); BUN/CREATININE RATIO 19 (6-25); CALCIUM 9.6 mg/dL (8.4-10.2); CARBON DIOXIDE 17 mmol/L (22-29); CHLORIDE 112 mmol/L (98-107); CREATININE, SERUM 0.73 mg/dL (0.57-1.11); EST GLOMERULAR FILTRATION RATE > 60 ML/MIN (60-); GLUCOSE 101 mg/dL (74-118); POTASSIUM 3.3 mmol/L (3.5-5.1); SODIUM 139 mmol/L (136-145)
[2019-01-03 19:46] LABS: CREATINE KINASE MB 0.4 ng/mL (0-5.0)
[2019-01-03 19:56] VITALS: BP 148/70
[2019-01-03 19:59] VITALS: BP 148/70
[2019-01-03 20:22] VITALS: BP 168/76
[2019-01-03 20:47] VITALS: BP 168/76
[2019-01-03] MEDS: CLINDAMYCIN 300MG 50 ML IV SCH (23:13)
[2019-01-03 23:57] VITALS: BP 179/89
[2019-01-04 04:21] VITALS: BP 167/79
[2019-01-04] MEDS: CLINDAMYCIN 300MG 50 ML IV SCH (05:04)
[2019-01-04] MEDS: SODIUM CHLORIDE 0.9% 1000ML 1,000 ML IV SCH (05:04)
[2019-01-04 05:30] LABS: BASOPHILS # (AUTO) 0.1 (0.0-0.1); BASOPHILS % 0.9 % (0.0-1.0); EOSINOPHILS % 10.6 % (0.0-6.0); HEMATOCRIT 31.6 % (34.2-44.1); HEMOGLOBIN 10.3 g/dL (12.0-16.0); LYMPHOCYTES # (AUTO) 1.7 (1.0-3.2); LYMPHOCYTES % 18.3 % (18.0-39.1); MEAN CORPUSCULAR HEMOGLOBIN 30.6 pg (28-32); MEAN CORPUSCULAR HGB CONC 32.6 g/dL (31-35); MEAN CORPUSCULAR VOLUME 93.8 fL (81-99); MONOCYTES # (AUTO) 0.7 (0.2-0.8); NEUTROPHILS # (AUTO) 5.6 (2.1-6.9); PLATELET COUNT 386 x10e3/uL (140-360); RED BLOOD COUNT 3.37 x10e6/uL (3.6-5.1); RED CELL DISTRIBUTION WIDTH 15.1 % (11.7-14.4)
[2019-01-04 05:59] LABS: CREATINE KINASE MB 0.3 ng/mL (0-5.0)
[2019-01-04 06:26] LABS: ALANINE AMINOTRANSFERASE 14 IU/L (0-55); ALBUMIN 1.9 g/dL (3.5-5.0); ALBUMIN/GLOBULIN RATIO 0.4 (0.8-2.0); ALKALINE PHOSPHATASE 68 IU/L (40-150); ANION GAP 10.2 mmol/L (8-16); BLOOD UREA NITROGEN 12 mg/dL (7-26); BUN/CREATININE RATIO 18 (6-25); CALCIUM 8.9 mg/dL (8.4-10.2); CARBON DIOXIDE 17 mmol/L (22-29); CHLORIDE 115 mmol/L (98-107); CREATININE, SERUM 0.66 mg/dL (0.57-1.11); EST GLOMERULAR FILTRATION RATE > 60 ML/MIN (60-); GLUCOSE 84 mg/dL (74-118); POTASSIUM 3.2 mmol/L (3.5-5.1); SODIUM 139 mmol/L (136-145)
[2019-01-04 07:10] VITALS: BP 167/79
--- NOTE | 2019-01-04 07:10 | NUR ---
Report received. Patient is resting in bed in NAD. POC discussed with patient. She was instructed to call for assistance as needed and verbalized understanding. Bed in lowest position, locked, bed alarm on for safety, and call toro within reach.
[2019-01-04 08:23] VITALS: BP 177/80
[2019-01-04] MEDS ORDERED: PANTOPRAZOLE SOD 40 MG TABEC PO SCH (09:00)
[2019-01-04] MEDS ORDERED: LACTOBACILLUS ACIDOPHILUS CAPSULE PO SCH (09:00)
[2019-01-04] MEDS ORDERED: ATORVASTATIN 10 MG TAB PO SCH (09:00)
[2019-01-04] MEDS ORDERED: LEVOTHYROXINE SODIUM 75 MCG TAB PO SCH (09:00)
[2019-01-04] MEDS ORDERED: POTASSIUM CHLORIDE 10MEQ EA PO ONE ×3 (09:10→12:01)
[2019-01-04] MEDS ORDERED: FUROSEMIDE INJ 10 MG/ML 4 ML VIAL IV ONE (09:30)
[2019-01-04] MEDS ORDERED: NIFEDIPINE CR 30 MG TAB PO SCH (09:30)
[2019-01-04] MEDS: METOPROLOL TARTRATE 25 MG TAB PO SCH ×2 (10:23→16:31)
[2019-01-04] MEDS: PENTOXIFYLLINE 400 MG TAB CR PO SCH ×2 (10:24→16:31)
[2019-01-04] MEDS ORDERED: LEVOTHYROXINE SODIUM 75 MCG TAB ONE (10:24)
[2019-01-04] MEDS: CLINDAMYCIN HCL 150 MG CAP PO SCH ×2 (10:24→16:31)
[2019-01-04] MEDS ORDERED: POTASSIUM CHLORIDE 20MEQ/15ML UDC ONE ×3 (10:24→13:58)
[2019-01-04] MEDS ORDERED: PENTOXIFYLLINE 400 MG TAB CR ONE (10:24)
[2019-01-04] MEDS ORDERED: FUROSEMIDE INJ 10 MG/ML 4 ML VIAL ONE (10:24)
[2019-01-04] MEDS ORDERED: CLINDAMYCIN HCL 150 MG CAP ONE (10:24)
[2019-01-04] MEDS ORDERED: PANTOPRAZOLE SOD 40 MG TABEC ONE (10:24)
[2019-01-04] MEDS ORDERED: METOPROLOL TARTRATE 25 MG TAB ONE (10:24)
[2019-01-04] MEDS ORDERED: NIFEDIPINE CR 30 MG TAB ONE (10:25)
[2019-01-04] MEDS ORDERED: ATORVASTATIN 10 MG TAB ONE (10:25)
[2019-01-04 12:12] VITALS: BP 156/69
[2019-01-04 14:37] LABS: CREATINE KINASE MB 0.4 ng/mL (0-5.0)
--- NOTE | 2019-01-04 15:06 | NUR ---
Report called to LAW Vogel at [facility]. Nurse was updated on medication changes per Dr. Giles's order. Patient will stop Levaquin and Start Clindamycin 300 mg PO TID for 5 days. Nurse verbalzied understanding.
--- NOTE | 2019-01-04 15:24 | NUR ---
PT IS TO RETURN TO [facility] UNDER DR MCCLOUD CARE ROOM AND RTF GIVEN TO NURSE TO CALL REPORT AND SEND BACK TO FACILITY. NO PREAUTH GIVEN PT WAS NOT GONE FROM FACILITY MORE THAN 24 HOURS AND NOT ADMITTED INPATIENT PER CADEE AT INSURANCE COMPANY
[2019-01-04 16:40] VITALS: BP 132/62
--- NOTE | 2019-01-04 18:55 | NUR ---
Still waiting on ambulance. They were called and per ambulance service they will come get the patient after they drop off at [place]. Report given to night nurse
--- NOTE | 2019-01-04 19:00 | NUR ---
Patient seen and assessed, patient due for discharge, all discharge protocols done by day nurse, patient was picked up and transferred by ems
[2019-01-04 20:00] VITALS: BP 146/66
--- NOTE | 2019-01-04 21:00 | NUR ---
2100: patient picked up by transportation personnel to [facility].
== END 2019-01-04 21:17 ==
LOC: ER 11:31 → ERHOLD 14:22 → IMCU 18:47
PROVIDERS: ADMIT Internal Medicine; ATTEND Internal Medicine
DX: L03.114 Cellulitis of left upper limb (principal); M06.9 Rheumatoid arthritis, unspecified; I11.0 Hypertensive heart disease with heart failure; I50.9 Heart failure, unspecified; D64.9 Anemia, unspecified; E03.9 Hypothyroidism, unspecified; F03.90 Unspecified dementia, unspecified severity, without behavioral disturbance, psychotic disturbance, mood disturbance, and anxiety; G89.29 Other chronic pain; I73.9 Peripheral vascular disease, unspecified
CPT/HCPCS: 36415 ×2; 71045; 73130; 80053 ×2; 82550 ×2; 82553 ×2; 84484 ×2; 85025 ×2; 87040; 93971; 99284; G0378 ×2; J1940; J7030; S0164

== ENCOUNTER 2019-02-09 13:47 | Emergency (ER) | payer MEDICARE ==
[~2019-02-09] VITALS: Ht 157.5 cm; Wt 62.1 kg
--- OUTSIDE RECORDS SUMMARY | 2019-02-09 13:50 | XMS REPORT | Clinical Summary ---
Author Author [facility] Organization [facility] Address Unknown Phone Unavailable Care Team Providers Care Capital Equipment Specialist Name Role Phone Jarad Fox MD PCP [...] VACCINE AGE 65 AND OVER INFLUENZA VACCINE 06/07/2019 Results Not on fileafter 02/08/2018 Insurance Payer Benefit Subscriber ID Type Phone Address Plan / Group MEDICAID MEDICAID xxxxxxxxx Medicaid MISC MEDICARE REPLACEMENT MISC xxxxxxxx HMO MEDICARE REPLACEMEN T Advance Directives Patient has advance care planning documents on file. For more information, damion ferrara contact: Gui Jones [address] [place] [address]
--- NOTE | 2019-02-09 15:27 | Diagnostic Imaging Report ---
Examination: Single AP view of the chest. COMPARISON: 01/03/2019 INDICATION: Fall from chair DISCUSSION: Limited by reverse lordotic positioning. The patient's lower face obscures the lung apices. No focal consolidation. Patchy perihilar opacities unchanged. No large pneumothorax. Stable cardiomediastinal contour when accounting for differences in positioning. Tortuous thoracic aorta with atherosclerotic calcification. Left apical calcified granuloma partially visualized. IMPRESSION: Pulmonary venous congestion similar to that noted 01/03/2019. Signed by: Dr. Edis Villegas M.D. on 02/09/2019 3:23 PM
--- NOTE | 2019-02-09 15:35 | Diagnostic Imaging Report ---
Exam: Pelvis single frontal view History: Fall from chair Comparison: None. Findings: The bones are osteopenic. No acute, displaced fracture or dislocation. Femoral heads project appropriately over the acetabula. Mild symmetric degenerative arthrosis of the hips. Crescentic radiodense foci project over the pelvis which may reflect ingested contrast material within large bowel diverticula. Atherosclerotic vascular calcifications. Calcified injection granulomata project over the iliac limbs. Degenerative disc changes of the lumbar spine. Impression: No acute osseous abnormality. Signed by: Dr. Edis Villegas M.D. on 02/09/2019 3:31 PM
--- NOTE | 2019-02-09 15:36 | Diagnostic Imaging Report ---
Exam: Left wrist 3 views History: Fall Comparison: None. Findings: The bones are diffusely osteopenic. Postsurgical changes related to fusion of the first metacarpophalangeal joint. Postsurgical changes of the first metacarpal base with adjacent radiodensity. The proximal carpal row is not visualized. Severe erosive changes of the carpus and metacarpophalangeal joints are again noted. Impression: Diffuse osteopenia without acute, displaced fracture. Stable findings of severe erosive arthropathy, including nonvisualization of the proximal carpal row relative to hand radiographs 01/03/2019. Signed by: Dr. Edis Villegas M.D. on 02/09/2019 3:33 PM
--- NOTE | 2019-02-09 15:51 | Diagnostic Imaging Report ---
History: Fall Comparison studies:CT head 10/16/2018 Technique: Axial images were obtained from the brain and cervical spine. Coronal and sagittal images reconstructed from the axial data. Intravenous contrast: None Dose modulation, iterative reconstruction, and/or weight based adjustment of the mA/kV was utilized to reduce the radiation dose to as low as reasonably achievable. Findings: Head CT: Scalp/skull: No abnormalities. No fractures, blastic or lytic lesions. Brain sulci: Mildly prominent. Ventricles: Mildly prominent. No hydrocephalus. Extra-axial spaces: No masses. No fluid collections. Parenchyma: Scattered hypodensities of the periventricular and deep white matter, nonspecific and most commonly seen with moderate chronic microvascular ischemic changes. No masses, hemorrhage, acute or chronic cortical vascular insults. Sellar/suprasellar region: No abnormalities. Craniocervical junction: Patent foramen magnum. No Chiari one malformation. Atherosclerotic calcifications of the carotid siphons. Bilateral cataract surgery changes. Cervical spine CT: Fractures: None. Soft tissues: No gross abnormalities. Atlantoaxial articulation: Intact. Alignment: Exaggerated cervical lordosis. Grade 1 retrolistheses of C3 over C4. Grade 1 anterolistheses of C5 over C6 and C6 over C7.. No scoliosis. Cervicomedullary junction: No abnormalities. Patent foramen magnum. Vertebrae: No infection or neoplasm. Degenerative changes: Mild facet and uncinate process hypertrophy without significant canal stenosis or foraminal narrowing. Incidental findings: Mild scarring in the left lung apex. Atherosclerotic calcifications of the carotid bulbs. Impression: Head CT: 1. No acute intracranial abnormality. Cervical spine CT: 1. No acute abnormalities. Degenerative changes as described above 2. Cannot exclude ligament, spinal cord and or vascular abnormalities on the basis of this examination. Signed by: DR Brent Valles M.D. on 02/09/2019 3:48 PM
--- NOTE | 2019-02-09 16:40 | NUR ---
EDWARD ARMENTA IN TRIAGE FOR LACERATION REPAIR, DERMABOND AND STERI STRIP APPLIED, TOLERATED WELL.
== END 2019-02-09 18:03 | disposition home or self-care (01) ==
LOC: ER 13:47
DX: S01.81XA Laceration without foreign body of other part of head, initial encounter (principal); W18.30XA Fall on same level, unspecified, initial encounter; Y92.008 Other place in unspecified non-institutional (private) residence as the place of occurrence of the external cause
CPT/HCPCS: 70450; 71045; 72125; 72170; 99283

== ENCOUNTER → 2019-06-05 | Outpatient (CLI) | payer MEDICARE ==
--- NOTE | 2019-06-05 14:24 | Diagnostic Imaging Report ---
EXAM: CT Chest WITHOUT intravenous contrast 06/05/2019 12:16 PM INDICATION: Long-term methotrexate use, concern for interstitial lung disease, shortness of breath COMPARISON: Multiple prior chest radiographs most recently of 02/09/2019, abdomen and pelvis CT of 10/20/2018 TECHNIQUE: Chest was scanned utilizing a multidetector helical scanner from the lung apex through the level of the adrenal glands without administration of IV contrast. Coronal and sagittal reformations were obtained. Routine protocol was performed. IV CONTRAST: None RADIATION DOSE: Total DLP: 477.2 mGy*cm. Dose modulation, iterative reconstruction, and/or weight based adjustment of the mA/kV was utilized to reduce the radiation dose to as low as reasonably achievable. COMPLICATIONS: None FINDINGS: LINES/ TUBES: None. LUNGS AND AIRWAYS: The central airways are patent. Left apical 11 mm calcified granuloma. There are diffuse bilateral lower lobe predominant groundglass opacities with subpleural sparing and scattered subpleural reticulations. Mild subpleural cystic changes along the posterior left lower lobe without honeycombing. Images at the lung bases are somewhat limited by respiratory motion artifact. No focal consolidation. PLEURA: No pleural effusion. No pneumothorax. HEART AND MEDIASTINUM: The thyroid gland is atrophic. No supraclavicular, mediastinal, or hilar lymphadenopathy. The heart is not enlarged. No pericardial effusion. Atherosclerotic calcifications involve the coronary arteries and thoracic aorta. No axillary, subpectoral, or internal mammary lymphadenopathy. UPPER ABDOMEN: Limited noncontrast enhanced views of the upper abdomen demonstrate no focal abnormality in the partially visualized liver, spleen, pancreas, adrenals, or upper poles of kidneys. There is anterior transposition of the ascending and proximal transverse colon anterior to the liver. BONES: Degenerative changes of the visualized spine. Exaggerated thoracic spine kyphosis. Superior endplate depression at T11. Anterolisthesis at C6-7. Diffuse osteopenia. SOFT TISSUES: Unremarkable. 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 Atherosclerotic calcifications, including of the coronary arteries. Signed by: Taye Connelly MD on 06/05/2019 2:21 PM
== END ==
LOC: RAD 11:56
PROVIDERS: ATTEND Internal Medicine
DX: R06.09 Other forms of dyspnea (principal); Z79.899 Other long term (current) drug therapy
CPT/HCPCS: 71250; 93306

== ENCOUNTER 2019-07-16 19:21 | Inpatient (IN) | payer MEDICARE ==
[~2019-07-16] VITALS: Ht 152.4 cm; Wt 58.5 kg
--- OUTSIDE RECORDS SUMMARY | 2019-07-16 19:25 | XMS REPORT | Clinical Summary ---
Author Author [facility] [employer] Address Unknown Phone Unavailable Care Team Providers Care Tool And Die Supervisor Name Role Phone Jarad Fox MD PCP [...] Use Types Packs/Day Years Used Never Smoker Drinks/Week oz/Week Comments Alcohol Use No Sex Assigned at Date Recorded Not [...] VACCINE 2006 (1 of 2 - PCV13) INFLUENZA VACCINE 06/07/2019 Results Not on fileafter 07/15/2018 Insurance Type Payer Benefit Subscriber ID Effective Phone Address Plan / Dates Group Medicaid MEDICAID MEDICAID xxxxxxxxx 2011-P resent HMO MISC MEDICARE REPLACEMENT MISC xxxxxxxx [id number] MEDICARE resent REPLACEMEN T Advance Directives For more information, please contact: [phone] Patient Level Vial Inspector And Tester Explanation Type Date Recorded Advance Directives, Living Will and Medical Power of Garnishment Specialist
[2019-07-16] MEDS ORDERED: SODIUM CHLORIDE 0.9% 1000ML 1,000 ML IV STA (19:57)
[2019-07-16] MEDS ORDERED: ACETAMINOPHEN 1000 MG/100 ML IV STA (20:30)
[2019-07-16] MEDS ORDERED: ACETAMINOPHEN 1000 MG/100 ML 100 ML IV ONE ×2 (20:35→20:45)
[2019-07-16 20:44] LABS: BASOPHILS % 0.3 % (0.0-1.0); EOSINOPHILS # (AUTO) 0.1 (0.0-0.4); EOSINOPHILS % 0.5 % (0.0-6.0); HEMATOCRIT 47.6 % (34.2-44.1); HEMOGLOBIN 15.5 g/dL (12.0-16.0); LYMPHOCYTES # (AUTO) 1.4 (1.0-3.2); LYMPHOCYTES % 9.5 % (18.0-39.1); MEAN CORPUSCULAR HEMOGLOBIN 31.1 pg (28-32); MEAN CORPUSCULAR HGB CONC 32.6 g/dL (31-35); MEAN CORPUSCULAR VOLUME 95.6 fL (81-99); MONOCYTES # (AUTO) 0.8 (0.2-0.8); MONOCYTES % 5.3 % (4.4-11.3); NEUTROPHILS # (AUTO) 12.4 (2.1-6.9); NEUTROPHILS % 83.6 % (38.7-80.0); PLATELET COUNT 170 x10e3/uL (140-360); RED BLOOD COUNT 4.98 x10e6/uL (3.6-5.1); RED CELL DISTRIBUTION WIDTH 16.4 % (11.7-14.4)
[2019-07-16] MEDS ORDERED: CEFTRIAXONE SOD 1 GM/NS 50 ML 50 ML IV ONE (20:45)
[2019-07-16] MEDS ORDERED: SODIUM CHLORIDE 0.9% 1000ML 1,000 ML IV ONE (20:45)
[2019-07-16 20:46] LABS: BILIRUBIN,URINE SMALL (NEGATIVE); CLARITY,URINE CLOUDY (CLEAR); KETONES,URINE NEGATIVE (NEGATIVE); LEUKOCYTE ESTERASE ,URINE MODERATE (NEGATIVE); NITRITE,URINE NEGATIVE (NEGATIVE); URINE UROBILINOGEN 2 mg/dL (0.2 - 1)
[2019-07-16 20:47] LABS: COLOR,URINE STRAW (YELLOW); PROTEIN,URINE DIPSTICK 2+ (NEGATIVE)
[2019-07-16 20:52] LABS: INR 0.95; PROTHROMBIN TIME 13.2 seconds (11.9-14.5)
[2019-07-16 20:53] LABS: PARTIAL THROMBOPLASTIN TIME 28.6 seconds (23.8-35.5)
[2019-07-16 21:00] LABS: BACTERIA,URINE MANY /HPF; WBC,URINE (MAN) 21-50 /HPF (0-5)
[2019-07-16 21:04] LABS: ALBUMIN 2.4 g/dL (3.5-5.0); ALBUMIN/GLOBULIN RATIO 0.4 (0.8-2.0); ANION GAP 18.4 mmol/L (8-16); CALCIUM 9.6 mg/dL (8.4-10.2); CREATININE, SERUM 1.42 mg/dL (0.57-1.11); MAGNESIUM 2.4 MG/DL (1.3-2.1); POTASSIUM 3.4 mmol/L (3.5-5.1)
[2019-07-16 21:09] LABS: B-TYPE NATRIURETIC PEPTIDE2 1078.9 pg/mL (0-100)
[2019-07-16 21:10] LABS: CREATINE KINASE MB 0.8 ng/mL (0-5.0)
--- NOTE | 2019-07-16 22:25 | Diagnostic Imaging Report ---
EXAMINATION: CHEST SINGLE (PORTABLE) INDICATION: Chest pain COMPARISON: Chest CT 06/05/2019 FINDINGS: AP view TUBES and LINES: None. LUNGS: Lungs are well inflated. Calcified granuloma in the left upper lobe.. There is no evidence of pneumonia or pulmonary edema. Mild central pulmonary vascular prominence. PLEURA: No pleural effusion or pneumothorax. HEART AND MEDIASTINUM: Cardiac size is mildly enlarged. There are atherosclerotic calcifications within the aorta. BONES AND SOFT TISSUES: No acute osseous lesion. Soft tissues are unremarkable. UPPER ABDOMEN: No free air under the diaphragm. IMPRESSION: Mild cardiomegaly and central pulmonary vascular congestion. Signed by: Avery Campbell DO on 07/16/2019 10:21 PM
[2019-07-16] MEDS ORDERED: ACETAMINOPHEN 325 MG TAB PO PRN (22:45)
[2019-07-16] MEDS ORDERED: ONDANSETRON HCL INJ 2MG/ML 2ML 2 MG/ML VIAL IV PRN (22:45)
--- OUTSIDE RECORDS SUMMARY | 2019-07-16 22:52 | XMS REPORT | Clinical Summary ---
Author Author [employer] [employer] Organization [employer] Address Unknown Phone Unavailable Care Team Providers Care Portainer Operator Name Role Phone Jarad Fox MD [...] Advance Directives For more information, please contact: [phone] Patient Patternmaker Pressure Cast Explanation Type Date Recorded Advance Directives, Living Will and Medical Power of Insurance Coder
[2019-07-17] VITALS (7 sets, daily range): BP systolic 113–138; BP diastolic 60–69
[2019-07-17] MEDS: CEFTRIAXONE SOD 1 GM/NS 50 ML 50 ML IV SCH (00:55)
[2019-07-17] MEDS: SODIUM CHLORIDE 0.9% 1000ML 1,000 ML IV SCH ×2 (01:15→09:31)
--- NOTE | 2019-07-17 01:27 | NUR ---
REPORT GIVEN TO LAW MORENO.
--- NOTE | 2019-07-17 01:30 | NUR ---
received report from LAW Scott, AAOx3, no resp distress, no c/o pain/discomfort, call light in reach
[2019-07-17 05:55] LABS: BASOPHILS % 0.3 % (0.0-1.0); EOSINOPHILS % 0.3 % (0.0-6.0); HEMATOCRIT 43.6 % (34.2-44.1); HEMOGLOBIN 13.9 g/dL (12.0-16.0); LYMPHOCYTES # (AUTO) 0.8 (1.0-3.2); LYMPHOCYTES % 7.2 % (18.0-39.1); MEAN CORPUSCULAR HGB CONC 31.9 g/dL (31-35); MEAN CORPUSCULAR VOLUME 97.3 fL (81-99); MONOCYTES # (AUTO) 0.7 (0.2-0.8); MONOCYTES % 5.8 % (4.4-11.3); NEUTROPHILS % 85.8 % (38.7-80.0); PLATELET COUNT 134 x10e3/uL (140-360); RED BLOOD COUNT 4.48 x10e6/uL (3.6-5.1); RED CELL DISTRIBUTION WIDTH 16.2 % (11.7-14.4)
[2019-07-17 06:18] LABS: CREATINE KINASE MB 1.9 ng/mL (0-5.0)
[2019-07-17 06:54] LABS: ALBUMIN 1.9 g/dL (3.5-5.0); ALBUMIN/GLOBULIN RATIO 0.4 (0.8-2.0); ANION GAP 16.4 mmol/L (8-16); CALCIUM 8.4 mg/dL (8.4-10.2); CREATININE, SERUM 0.95 mg/dL (0.57-1.11); POTASSIUM 3.4 mmol/L (3.5-5.1)
[2019-07-17] MEDS ORDERED: KCL 20MEQ/.9 SOD CHL 1,000 ML IV SCH (12:30)
[2019-07-17] MEDS ORDERED: POLYETHYLENE GLYCOL 3350 17 GM PACK PO PRN (12:45)
[2019-07-17] MEDS ORDERED: HYDRALAZINE HCL 20 MG/ML VIAL IV PRN (12:45)
[2019-07-17] MEDS: ALBUTEROL SULF 0.083% NEB SOLN 3 ML NEB NEB SCH ×3 (13:25→23:30)
[2019-07-17] MEDS: IPRATROPIUM BROMIDE 0.02% 2.5 ML NEB NEB SCH ×3 (13:25→23:30)
--- NOTE | 2019-07-17 13:39 | NUR ---
LAB AT BEDSIDE FOR BLOOD DRAW. NO SIGNS OF ACUTE DISTRESS NOTED AT THIS TIME. FAMILY AT BEDSIDE.
[2019-07-17 14:28] LABS: CREATINE KINASE MB 3.3 ng/mL (0-5.0)
[2019-07-17] MEDS ORDERED: POTASSIUM CHLORIDE 20 MEQ TAB CR PO STA (14:39)
[2019-07-17] MEDS ORDERED: POTASSIUM CHLORIDE 20 MEQ TAB CR PO NR (14:45)
[2019-07-17] MEDS ORDERED: ACETAMINOPHEN 325 MG TAB PO PRN (14:45)
[2019-07-17] MEDS ORDERED: FUROSEMIDE INJ 10 MG/ML 4 ML VIAL IV ONE (15:00)
[2019-07-17] MEDS ORDERED: POTASSIUM CHLORIDE 20MEQ/100ML 100 ML IV ONE (15:00)
--- NOTE | 2019-07-17 15:05 | NUR ---
sPOKE WITH dR. MCCLOUD REGARDING PATIENT VS, HR 140S, RESP 30S, SBP 150S, TEMP 101.8 RECTAL AND WHEEZING NOTED IN RLL;
[2019-07-17] MEDS ORDERED: ACETAMINOPHEN 650 MG SUPP PR NR (15:15)
[2019-07-17] MEDS: FAMOTIDINE 20 MG TAB PO SCH (16:30)
--- NOTE | 2019-07-17 16:30 | NUR ---
RECEIVED PT FROM ER. PT IS SLEEPING, SKIN IS PALE AND COOL TO THE TOUCH. O2 2L AT NC AND O2 SAT IS 100%, RESPIRATIONS ARE APROX 35 BREATHS PER MINUTE. PUPILS ARE EQUAL AND RESPONSIVE TO LIGHT 3MM. TEMP 100.9 DEGREES F, HR 122, BP 138/69. THERE ARE NO IVF RUNNING EXCEPT FOR POTASSIUM CHLORIDE 20 mEq IV. INFORMED CHARGE NURSE AND NURSERYPERSON OF PATIENTS CONDITION
[2019-07-17] MEDS: ASCORBIC ACID 500 MG TAB PO SCH (17:00)
[2019-07-17] MEDS: PENTOXIFYLLINE 400 MG TAB CR PO SCH (17:00)
[2019-07-17] MEDS: METOPROLOL TARTRATE 25 MG TAB PO SCH (17:00)
[2019-07-17] MEDS: DOCUSATE SODIUM 100 MG CAP PO SCH (17:00)
--- NOTE | 2019-07-17 17:45 | NUR ---
Received patient from [facility] 3 patient arrived in bed, appeared lethargic, respirations 30-39, patient placed on Bi-pap settings 10/12 rr12 @50% per DIETITIAN TEACHER orders, Prince Mo. Patient placed on telemetry saturation 98% on Bi-pap.
[2019-07-17 17:51] LABS: ABG PCO2 24 mmHg (41-51); ABG PH 7.42 (7.31-7.41)
[2019-07-17 17:52] LABS: ABG HCO3 19 mmol/L (23-28); ABG PO2 74 mmHg (80-105)
--- NOTE | 2019-07-17 17:57 | Diagnostic Imaging Report ---
Chest, 1 view, 07/17/2019. History: Tachypnea. Comparison: 07/16/2019. Findings: The patient is rotated. The cardiomediastinal silhouette and pulmonary vasculature are mildly prominent. Calcified granuloma is present in the left apex. There is no focal consolidation or pleural effusion. There are no acute osseous or soft tissue abnormalities. Impression: Mild cardiomegaly and vascular congestion. Signed by: Amandeep Shah on 07/17/2019 5:53 PM
[2019-07-17] MEDS ORDERED: ACETAMINOPHEN 650 MG SUPP PR PRN (21:00)
[2019-07-17] MEDS ORDERED: AZITHROMYCIN 500MG/NS 250 ML 250 ML IV ONE (22:00)
[2019-07-17] MEDS ORDERED: FUROSEMIDE INJ 10 MG/ML 4 ML VIAL IV NR (22:00)
--- NOTE | 2019-07-17 23:39 | Diagnostic Imaging Report ---
EXAMINATION: CHEST XRAY LINE PLACEMENT INDICATION: PICC line placement COMPARISON: chest radiograph 07/17/2019 FINDINGS: AP view TUBES and LINES: Right upper extremity PICC tip terminates at the superior cavoatrial junction. LUNGS: Lungs are well inflated. Lungs are clear. There is no evidence of pneumonia or pulmonary edema. Central pulmonary vascular prominence. PLEURA: No pleural effusion or pneumothorax. HEART AND MEDIASTINUM: The cardiomediastinal silhouette is upper limit of normal. There are atherosclerotic calcifications within the aorta. BONES AND SOFT TISSUES: No acute osseous lesion. Soft tissues are unremarkable. Vascular calcifications. UPPER ABDOMEN: No free air under the diaphragm. IMPRESSION: Right upper extremity PICC tip terminates at the superior cavoatrial junction. Central pulmonary vascular congestion. Signed by: Avery Campbell DO on 07/17/2019 11:35 PM
[2019-07-18] VITALS (8 sets, daily range): BP systolic 100–123; BP diastolic 52–77
--- NOTE | 2019-07-18 00:06 | NUR ---
Picc line is in proper position at the cavoatrial junction per radiology report by Dr Campbell. Picc is ok to use
[2019-07-18] MEDS: CEFTRIAXONE SOD 1 GM/NS 50 ML 50 ML IV SCH (00:11)
[2019-07-18] MEDS: ALBUTEROL SULF 0.083% NEB SOLN 3 ML NEB NEB SCH ×5 (03:15→23:18)
[2019-07-18] MEDS: IPRATROPIUM BROMIDE 0.02% 2.5 ML NEB NEB SCH ×6 (03:15→23:22)
[2019-07-18] MEDS ORDERED: KCL 20MEQ/.9 SOD CHL 1,000 ML IV SCH (04:00)
[2019-07-18 05:17] LABS: BASOPHILS # (AUTO) 0.1 (0.0-0.1); BASOPHILS % 0.5 % (0.0-1.0); EOSINOPHILS % 0.1 % (0.0-6.0); HEMATOCRIT 40.8 % (34.2-44.1); HEMOGLOBIN 13.2 g/dL (12.0-16.0); LYMPHOCYTES # (AUTO) 0.7 (1.0-3.2); LYMPHOCYTES % 3.1 % (18.0-39.1); MEAN CORPUSCULAR HEMOGLOBIN 31.2 pg (28-32); MEAN CORPUSCULAR HGB CONC 32.4 g/dL (31-35); MEAN CORPUSCULAR VOLUME 96.5 fL (81-99); MONOCYTES # (AUTO) 0.6 (0.2-0.8); MONOCYTES % 2.9 % (4.4-11.3); NEUTROPHILS # (AUTO) 20.3 (2.1-6.9); NEUTROPHILS % 92.5 % (38.7-80.0); PLATELET COUNT 119 x10e3/uL (140-360); RED BLOOD COUNT 4.23 x10e6/uL (3.6-5.1); RED CELL DISTRIBUTION WIDTH 16.5 % (11.7-14.4)
[2019-07-18 05:37] LABS: ANION GAP 15.8 mmol/L (8-16); CALCIUM 9.1 mg/dL (8.4-10.2); CREATININE, SERUM 0.98 mg/dL (0.57-1.11); MAGNESIUM 1.9 MG/DL (1.3-2.1); PHOSPHORUS 3.6 MG/DL (2.3-4.7)
[2019-07-18 05:39] LABS: POTASSIUM 2.8 mmol/L (3.5-5.1)
[2019-07-18 05:59] LABS: THYROID STIMULATING HORMONE 0.534 uIU/mL (0.350-4.940)
[2019-07-18] MEDS: LEVOTHYROXINE SODIUM 75 MCG TAB PO SCH (06:00)
[2019-07-18] MEDS ORDERED: POTASSIUM CHLORIDE 20MEQ/100ML 100 ML IV ONE (06:15)
[2019-07-18 06:55] LABS: LYMPHOCYTES % (MANUAL) 2 % (19-48); MONOCYTES % (MANUAL) 3 % (3.4-9.0); NEUTROPHILS % (MANUAL) 95 % (40-74); PLATELET ESTIMATE MODERATELY DECREASED; RBC MORPHOLOGY COMMENT NORMAL
[2019-07-18] MEDS: METOPROLOL TARTRATE 25 MG TAB PO SCH ×2 (08:38→17:00)
[2019-07-18] MEDS: ATORVASTATIN 10 MG TAB PO SCH (08:45)
[2019-07-18] MEDS: FUROSEMIDE 40 MG TAB PO SCH (08:45)
[2019-07-18] MEDS: NIFEDIPINE CR 30 MG TAB PO SCH (08:45)
[2019-07-18] MEDS: DOCUSATE SODIUM 100 MG CAP PO SCH ×2 (08:45→17:11)
[2019-07-18] MEDS: PENTOXIFYLLINE 400 MG TAB CR PO SCH ×2 (08:45→17:11)
[2019-07-18] MEDS: ASCORBIC ACID 500 MG TAB PO SCH ×2 (08:45→17:11)
[2019-07-18] MEDS: FAMOTIDINE 20 MG TAB PO SCH ×2 (08:45→17:11)
[2019-07-18] MEDS ORDERED: NON-FORMULARY MEDICATION (Nifedipine (Nifedipine Er) 1 TAB) PO SCH (09:00)
[2019-07-18] MEDS ORDERED: PIPER-TAZ 3.375 GM 50 ML IV ONE (12:00)
--- NOTE | 2019-07-18 12:58 | NUR ---
dr. pyle notified of new consult
[2019-07-18] MEDS ORDERED: SODIUM CHLORIDE 0.9% 250ML 250 ML ONE (13:57)
[2019-07-18] MEDS: CEFEPIME 1GM/NS 0.9% 50 ML 50 ML IV SCH (14:03)
[2019-07-18] MEDS ORDERED: ACETAMINOPHEN 325 MG TAB PO PRN (17:30)
[2019-07-18 19:10] LABS: ANION GAP 17.7 mmol/L (8-16); CALCIUM 9.2 mg/dL (8.4-10.2); CREATININE, SERUM 1.03 mg/dL (0.57-1.11)
[2019-07-18 19:23] LABS: POTASSIUM 2.7 mmol/L (3.5-5.1)
[2019-07-18] MEDS: AZITHROMYCIN 500MG/NS 250 ML 250 ML IV SCH (21:58)
[2019-07-19] VITALS (7 sets, daily range): BP systolic 99–118; BP diastolic 57–72
[2019-07-19] MEDS: CEFEPIME 1GM/NS 0.9% 50 ML 50 ML IV SCH ×2 (02:32→14:18)
[2019-07-19] MEDS: IPRATROPIUM BROMIDE 0.02% 2.5 ML NEB NEB SCH ×6 (03:00→23:10)
[2019-07-19] MEDS: ALBUTEROL SULF 0.083% NEB SOLN 3 ML NEB NEB SCH ×6 (03:44→23:10)
--- NOTE | 2019-07-19 04:13 | Consultation ---
DATE OF CONSULTATION: 07/18/2019 Pulmonary Medicine Consult PRIMARY CARE DOCTOR: Edgard Ponce MD HISTORY OF PRESENT ILLNESS: Ms. Dela Cruz is a pleasant 79-year-old female with abnormal chest radiography. The patient was admitted to [facility] on July 16, 2019. The patient with significant weakness, some fevers. In the emergency room, some of the findings include a urinalysis with 21-50 white blood cells. Due to significant debility, she was admitted to the hospital. Urine cultures have grown gram-negative rods. Blood cultures have also grown gram-negative rods in 2/2 blood cultures. White count has gone up from 13,000 to 22,000. ABG 7.42/24/24/. The patient's heart rate pick it up slowly as well from 84 to 117 level. I am consulted. PAST MEDICAL HISTORY: Hypertension, debility, rheumatoid arthritis, Remicade use, hypothyroidism, major depression, osteoarthritis, interstitial lung disease, presumed. MEDICATIONS: Medication list reviewed per the chart record. Acute medications include cefepime and azithromycin among other medicines. ALLERGIES: REVIEWED PER THE CHART RECORD. SOCIAL HISTORY: No smoking. No drinking. No drugs. FAMILY HISTORY: Noncontributory to this condition. REVIEW OF SYSTEMS: Cannot get reliably as patient is very debilitated and cannot really speak any long sentences. OBJECTIVE: VITAL SIGNS: Afebrile, vital signs noted per the chart record. Previous temperature maximum was 100.7 in our computer. HEENT: Normocephalic, atraumatic. Generally in bed, pale and weak. NECK: Supple. Throat midline. LUNGS: Bilateral air entry, few crackles. CARDIOVASCULAR: S1, S2. No murmurs, rubs, or gallops. ABDOMEN: Soft and nontender. EXTREMITIES: No clubbing, no cyanosis, there is only trace edema. INTEGUMENT: No rash or purpura. LABORATORY DATA: 41 hematocrit, 119 platelets, 22,000 white count. 150 sodium, 2.7 potassium count, 22 BUN, 1.03 creatinine. BNP was 1754. IMPRESSION AND PLAN: 1. Abnormal chest radiography, known baseline interstitial lung disease. Connective tissue disease related. 2. Known rheumatoid arthritis, on chronic biologic therapy. 3. Admit with urinary tract infection and severe sepsis. 4. Encephalopathy. 5. Gram-negative valorie septicemia, most likely from urinary tract infection. 6. Rheumatoid arthritis. 7. Hypertension. 8. Hypothyroidism. 9. History of depression. 10. Osteoarthritis. At this time, followup closely while patient is on diet. Encourage good lung expansion. Repeat another x-ray in another couple of days to ensure no digression of findings. Continue antibiotics and identify what pathogen it is, so we can decide on source control if anything other than the bladder needs to be considered. As days come, we will start mobilizing the patient. I have added Lovenox due to the moderate thromboembolic disease or risk here. We will follow along closely. Further issues regarding interstitial lung disease per Dr. Wright. Thank you very much for allowing me a chance to participate in the care of Ms. Dela Cruz. Please call for questions. MD CÉSAR Cardoza/ESME /[id number]
[2019-07-19 05:53] LABS: ANION GAP 13.6 mmol/L (8-16); CALCIUM 8.8 mg/dL (8.4-10.2); CREATININE, SERUM 1.14 mg/dL (0.57-1.11)
[2019-07-19 05:56] LABS: POTASSIUM 2.6 mmol/L (3.5-5.1)
[2019-07-19] MEDS: LEVOTHYROXINE SODIUM 75 MCG TAB PO SCH (06:01)
[2019-07-19] MEDS ORDERED: POTASSIUM CHLORIDE 20 MEQ TAB CR PO NR (06:30)
[2019-07-19] MEDS ORDERED: POTASSIUM CHLORIDE 10MEQ/100ML 200 ML IV ONE (07:30)
[2019-07-19 07:31] LABS: BASOPHILS # (AUTO) 0.1 (0.0-0.1); BASOPHILS % 0.3 % (0.0-1.0); EOSINOPHILS # (AUTO) 0.1 (0.0-0.4); EOSINOPHILS % 0.6 % (0.0-6.0); HEMATOCRIT 38.2 % (34.2-44.1); HEMOGLOBIN 12.4 g/dL (12.0-16.0); LYMPHOCYTES # (AUTO) 1.2 (1.0-3.2); LYMPHOCYTES % 7.3 % (18.0-39.1); MEAN CORPUSCULAR HEMOGLOBIN 31.1 pg (28-32); MEAN CORPUSCULAR HGB CONC 32.5 g/dL (31-35); MEAN CORPUSCULAR VOLUME 95.7 fL (81-99); MONOCYTES # (AUTO) 0.6 (0.2-0.8); MONOCYTES % 3.7 % (4.4-11.3); NEUTROPHILS # (AUTO) 14.2 (2.1-6.9); NEUTROPHILS % 86.9 % (38.7-80.0); PLATELET COUNT 116 x10e3/uL (140-360); RED BLOOD COUNT 3.99 x10e6/uL (3.6-5.1); RED CELL DISTRIBUTION WIDTH 16.7 % (11.7-14.4)
[2019-07-19] MEDS: FAMOTIDINE 20 MG TAB PO SCH ×2 (08:27→17:18)
[2019-07-19] MEDS: FUROSEMIDE 40 MG TAB PO SCH (08:37)
[2019-07-19] MEDS: NIFEDIPINE CR 30 MG TAB PO SCH (08:37)
[2019-07-19] MEDS: METOPROLOL TARTRATE 25 MG TAB PO SCH ×2 (08:37→17:19)
[2019-07-19] MEDS: PENTOXIFYLLINE 400 MG TAB CR PO SCH ×2 (08:37→17:18)
[2019-07-19] MEDS: ASCORBIC ACID 500 MG TAB PO SCH ×2 (08:37→17:18)
[2019-07-19] MEDS: ATORVASTATIN 10 MG TAB PO SCH (08:37)
[2019-07-19] MEDS: DOCUSATE SODIUM 100 MG CAP PO SCH ×2 (08:37→17:18)
[2019-07-19 08:41] LABS: LYMPHOCYTES % (MANUAL) 8 % (19-48); MONOCYTES % (MANUAL) 4 % (3.4-9.0); NEUTROPHILS % (MANUAL) 88 % (40-74); PLATELET ESTIMATE MODERATELY DECREASED; PLATELET MORPHOLOGY COMMENT FEW LARGE; RBC MORPHOLOGY COMMENT NORMAL
[2019-07-19] MEDS: METHYLPREDNISOLONE SOD SUCC 40 MG/ML VIAL 1ML IV SCH ×2 (11:38→21:29)
--- NOTE | 2019-07-19 15:27 | Consultation ---
DATE OF CONSULTATION: 07/19/2019 Pulmonary Consultation REASON FOR THE CONSULT: Interstitial lung disease. The patient is my office patient, well known to me. HISTORY OF PRESENT ILLNESS: Ms. Dela Cruz is a 79-year-old female, she has severe rheumatoid arthritis, came in with shortness of breath and abnormal chest x-ray. The patient was started on diuretics. She had a CT of the chest done in May 2019, it is showing mild NSIP pattern and it is not consistent UIP pattern. She has severe rheumatoid arthritis, generalized weakness. She denies any nausea, vomiting, or chest pain. She was on 5 mg of steroids, when I saw her last in the office. She underwent an echocardiogram done on May 16, 2019, which showed an evidence of moderate enlargement of the RV and impaired RV systolic function consistent with pulmonary hypertension. They were not able to measure the RVSP because they were unable to locate TR jet. The patient also has a history of taking methotrexate in the past. She currently feels better, but still feels weak. REVIEW OF SYSTEMS: GENERAL: Denies any fevers or chills. HEAD: Denies any head trauma. ENT: Denies any earaches. CVS: Denies any chest pain. RESPIRATORY: Shortness of breath. GI: No nausea or vomiting. The rest of the review of systems are negative except as in HPI. PAST MEDICAL HISTORY: Hypertension. Rheumatoid arthritis, has been on Remicade in the past and methotrexate. Depression, interstitial lung disease, which is NSIP pattern, it is not biopsy-proven. She had another echocardiogram done, which showed RVSP of 47, which was in May 2019, this was ordered from my office. PHYSICAL EXAMINATION: VITAL SIGNS: Temperature 98.5, pulse of 112, blood pressure 107/65, respiratory rate 18, and O2 saturation 100%. HEENT: Head is atraumatic, normocephalic. NECK: Supple. CHEST: Crackles in the bases. HEART: S1, S2 audible. ABDOMEN: Soft. EXTREMITIES: No pedal edema. NEUROLOGIC: She is awake and alert. LABORATORY DATA: White count of 16, 000, white count was 21,000 yesterday, hemoglobin 12.4, and platelets 116. Chemistry; sodium 150, potassium 2.6, chloride 117, BUN 25, creatinine 1.14. ASSESSMENT: A 79-year-old female, who has interstitial lung disease due to rheumatoid arthritis, it is not biopsy proven. The CT of the chest showing subtle disease and it is more likely NSIP pattern. The patient has been on chronic steroids because of rheumatoid arthritis, last clinic note says that she was on 5 mg. She has used methotrexate in the past, which can also cause pulmonary toxicity. Her echo was consistent with pulmonary hypertension, secondary to interstitial lung disease, that is group 3. PLAN: I will reduce the dose of the Lasix. The patient appears to be euvolemic. I will continue the patient on antihypertensive medications and IV antibiotics. I will start the patient on low-dose steroids, oxygen as needed. Physical therapy evaluation and treatment. Thank you for this consult. MD ROS Robert/ESME /[id number]
[2019-07-19] MEDS: ENOXAPARIN SOD INJ 40 MG/0.4 ML SYR SC SCH (17:18)
[2019-07-19] MEDS: AZITHROMYCIN 500MG/NS 250 ML 250 ML IV SCH (21:29)
--- NOTE | 2019-07-19 22:42 | NUR ---
Spoke to Dr. Giles and Dr. Wright to obtained floor orders. MDs both updated on patient's status and orders obtained to transfer the patient to [facility] with telemetry.
--- NOTE | 2019-07-19 23:00 | NUR ---
patient was transferred from ICU
[2019-07-20] VITALS (8 sets, daily range): BP systolic 101–121; BP diastolic 59–75
--- NOTE | 2019-07-20 00:50 | NUR ---
Pt transfered to room 298. Pt awake, aware of transfer, called to Pradip Burt and left message to notify. Report called to Christoph FOY and pt received to room by Christoph FOY. No compications noted.
[2019-07-20] MEDS: ALBUTEROL SULF 0.083% NEB SOLN 3 ML NEB NEB SCH ×6 (03:25→23:45)
[2019-07-20] MEDS: IPRATROPIUM BROMIDE 0.02% 2.5 ML NEB NEB SCH ×6 (03:25→23:45)
[2019-07-20] MEDS ORDERED: SODIUM CHLORIDE 0.9% 250ML 250 ML ONE (03:34)
[2019-07-20] MEDS: CEFEPIME 1GM/NS 0.9% 50 ML 50 ML IV SCH ×2 (04:00→15:59)
[2019-07-20] MEDS: LEVOTHYROXINE SODIUM 75 MCG TAB PO SCH (06:00)
--- NOTE | 2019-07-20 07:36 | NUR ---
patient endorsed to next shift for continuity of care.
[2019-07-20] MEDS: FAMOTIDINE 20 MG TAB PO SCH ×2 (08:32→15:58)
[2019-07-20] MEDS: METHYLPREDNISOLONE SOD SUCC 40 MG/ML VIAL 1ML IV SCH ×2 (08:32→21:30)
[2019-07-20] MEDS: ATORVASTATIN 10 MG TAB PO SCH (08:33)
[2019-07-20] MEDS: METOPROLOL TARTRATE 25 MG TAB PO SCH ×2 (08:33→15:58)
[2019-07-20] MEDS: FUROSEMIDE 40 MG TAB PO SCH (08:33)
[2019-07-20] MEDS: DOCUSATE SODIUM 100 MG CAP PO SCH ×2 (08:33→15:58)
[2019-07-20] MEDS: ASCORBIC ACID 500 MG TAB PO SCH ×2 (08:34→15:58)
[2019-07-20] MEDS: PENTOXIFYLLINE 400 MG TAB CR PO SCH ×2 (08:34→15:58)
[2019-07-20] MEDS: NIFEDIPINE CR 30 MG TAB PO SCH (08:34)
[2019-07-20 11:59] LABS: ANION GAP 14.2 mmol/L (8-16); CALCIUM 9.3 mg/dL (8.4-10.2); CREATININE, SERUM 1.29 mg/dL (0.57-1.11); POTASSIUM 3.2 mmol/L (3.5-5.1)
--- NOTE | 2019-07-20 12:16 | NUR ---
EDUCATED ABOUT IMM, SIGNED, FILED IN CHART, WITH COPY LEFT WITH FAMILY AT BEDSIDE.
--- NOTE | 2019-07-20 12:24 | NUR ---
SPOKE WITH FAMILY ABOUT SNF ORDER AND GAVE OPTIONS OF BUILDINGS IN NETWORK, [facility], [facility], [facility], FAMILY GOING TO LOOK AT BUILDINGS AND LET SW KNOW CHOICE.
[2019-07-20] MEDS: ENOXAPARIN SOD INJ 40 MG/0.4 ML SYR SC SCH (15:58)
--- NOTE | 2019-07-20 16:11 | NUR ---
79 YO FEMALE PATIENT SCREENING DONE DISCREPANCY NOTED BETWEEN GEMA SCORES AND PUP LEVEL . PATIENT ASSIGNED NURSE REPORTS BLANCHABLE REDDNESS NO OPEN AREAS AND 15 GEMA AND MODERATE PUP WITH PATIENT STATUS IMPROVEMENT ASSESSED BLANCHABLE REDNESS TO SACRUM.SHE STATES SHE WILL INSURE DOCUMENTATION WILL REFLECT CURRENT PT STATUS Addendum: 07/20/19 at 1621 by Jasson Aragon RN Amended: Links added.
--- NOTE | 2019-07-20 19:15 | NUR ---
Report received from LAW Hernández. Patient is sleeping in bed at this time. Pt appears in no distress at this time. Respirations are regular and even. Call light is in reach of pt. Will continue to monitor pt closely.
[2019-07-20] MEDS: AZITHROMYCIN 500MG/NS 250 ML 250 ML IV SCH (21:30)
[2019-07-21] VITALS (8 sets, daily range): BP systolic 106–137; BP diastolic 52–68
[2019-07-21] MEDS: CEFEPIME 1GM/NS 0.9% 50 ML 50 ML IV SCH ×2 (01:36→14:15)
[2019-07-21] MEDS: ALBUTEROL SULF 0.083% NEB SOLN 3 ML NEB NEB SCH ×6 (03:00→23:15)
[2019-07-21] MEDS: IPRATROPIUM BROMIDE 0.02% 2.5 ML NEB NEB SCH ×6 (03:00→23:15)
[2019-07-21] MEDS: LEVOTHYROXINE SODIUM 75 MCG TAB PO SCH (06:40)
[2019-07-21] MEDS: FAMOTIDINE 20 MG TAB PO SCH ×2 (09:20→16:53)
[2019-07-21] MEDS: DOCUSATE SODIUM 100 MG CAP PO SCH ×2 (09:22→16:53)
[2019-07-21] MEDS: METHYLPREDNISOLONE SOD SUCC 40 MG/ML VIAL 1ML IV SCH ×2 (09:22→21:30)
[2019-07-21] MEDS: FUROSEMIDE 40 MG TAB PO SCH (09:23)
[2019-07-21] MEDS: ATORVASTATIN 10 MG TAB PO SCH (09:23)
[2019-07-21] MEDS: PENTOXIFYLLINE 400 MG TAB CR PO SCH ×2 (09:24→16:54)
[2019-07-21] MEDS: METOPROLOL TARTRATE 25 MG TAB PO SCH ×2 (09:24→16:53)
[2019-07-21] MEDS: NIFEDIPINE CR 30 MG TAB PO SCH (09:24)
[2019-07-21] MEDS: ASCORBIC ACID 500 MG TAB PO SCH ×2 (09:24→16:54)
[2019-07-21] MEDS ORDERED: POTASSIUM CHLORIDE 20 MEQ TAB CR PO ONE (14:30)
[2019-07-21] MEDS: ENOXAPARIN SOD INJ 40 MG/0.4 ML SYR SC SCH (16:54)
--- NOTE | 2019-07-21 17:45 | NUR ---
Nutrition Screen Note RD Recommendation for Physician: 1.Continue with current diet order and texture/liquid modifications 2.Continue ONS Ensure pudding Plan of Care: RD following, monitoring for tolerance and adequacy, ONS Nutrition reason for involvement: LOS Primary Diagnose(s): Dehydration, fever, sepsis, UTI, weakness PMH: HTN, RA, Hypothyroidism, remicade use, major depression, osteoarthritis, interstitial lung disease Ht: 60 in Wt: 117lbs BMI: 22.84 kg/m2 IBW: 100lb +/- 10% RD Assessment: (07/21) Chart reviewed. Labs and meds reviewed. 79 y/o F hard hearing and poor historian. Nurse assisting patient with feeding during time of visit, no family in the room. Patient reports fair appetite and intake. PTC showed 25-75% of meals consumed. Per pt nurse, pt has fair intake, tolerating liquid consistency and Ensure pudding. Denied any N/V/D/C. Pt could not provide information on weight hx or interpretation for energy intake or any weight loss. PTC weight hx showed discrepancy. Social work has talked to family about DNF. Will continue to monitor and follow. Current Diet: Cardiac Diet Malnutrition Evaluation (07/21) The patient does not meet criteria for a specified degree of malnutrition at this time. Will re-evaluate at follow-up as appropriate.Pt is poor historian Diet Education Needs Assessment: Diet education not indicated. Nutrition Care Level: LOW Signed: Ramila De La O, MS, RDN, LD
--- NOTE | 2019-07-21 19:20 | NUR ---
BS report completed with morning nurse. Pt alert to name. Lying in bed HOB 30 degrees. Denies pain or discomfort at this time. Bed low and locked. Call toro within reach. Bed alarm on. Will continue to monitor.
[2019-07-21] MEDS: AZITHROMYCIN 500MG/NS 250 ML 250 ML IV SCH (22:00)
[2019-07-22] VITALS (7 sets, daily range): BP systolic 123–146; BP diastolic 67–80
[2019-07-22] MEDS: CEFEPIME 1GM/NS 0.9% 50 ML 50 ML IV SCH ×2 (01:54→15:09)
[2019-07-22] MEDS: IPRATROPIUM BROMIDE 0.02% 2.5 ML NEB NEB SCH ×6 (03:00→23:20)
[2019-07-22] MEDS: ALBUTEROL SULF 0.083% NEB SOLN 3 ML NEB NEB SCH ×6 (03:00→23:20)
[2019-07-22] MEDS: LEVOTHYROXINE SODIUM 75 MCG TAB PO SCH (06:00)
--- NOTE | 2019-07-22 07:00 | NUR ---
Report given to morning nurse. Pt lying quietly in bed RR even and unlabored. no s/s of pain at this time.
[2019-07-22] MEDS: FUROSEMIDE 40 MG TAB PO SCH (09:29)
[2019-07-22] MEDS: METHYLPREDNISOLONE SOD SUCC 40 MG/ML VIAL 1ML IV SCH (09:29)
[2019-07-22] MEDS: FAMOTIDINE 20 MG TAB PO SCH ×2 (09:29→16:10)
[2019-07-22] MEDS: ATORVASTATIN 10 MG TAB PO SCH (09:29)
[2019-07-22] MEDS: METOPROLOL TARTRATE 25 MG TAB PO SCH ×2 (09:29→16:11)
[2019-07-22] MEDS: DOCUSATE SODIUM 100 MG CAP PO SCH ×2 (09:29→16:10)
[2019-07-22] MEDS: PENTOXIFYLLINE 400 MG TAB CR PO SCH ×2 (09:30→16:11)
[2019-07-22] MEDS: ASCORBIC ACID 500 MG TAB PO SCH ×2 (09:30→16:11)
[2019-07-22] MEDS: NIFEDIPINE CR 30 MG TAB PO SCH (09:30)
[2019-07-22] MEDS: ENOXAPARIN SOD INJ 40 MG/0.4 ML SYR SC SCH (16:11)
[2019-07-22] MEDS: AZITHROMYCIN 500MG/NS 250 ML 250 ML IV SCH (21:46)
[2019-07-23] VITALS (9 sets, daily range): BP systolic 106–157; BP diastolic 55–85
[2019-07-23] MEDS: CEFEPIME 1GM/NS 0.9% 50 ML 50 ML IV SCH ×2 (01:34→14:11)
[2019-07-23] MEDS: IPRATROPIUM BROMIDE 0.02% 2.5 ML NEB NEB SCH ×4 (03:10→15:24)
[2019-07-23] MEDS: ALBUTEROL SULF 0.083% NEB SOLN 3 ML NEB NEB SCH ×4 (03:10→15:24)
[2019-07-23] MEDS: LEVOTHYROXINE SODIUM 75 MCG TAB PO SCH (06:00)
[2019-07-23 06:10] LABS: BASOPHILS # (AUTO) 0.1 (0.0-0.1); BASOPHILS % 0.5 % (0.0-1.0); EOSINOPHILS # (AUTO) 0.2 (0.0-0.4); EOSINOPHILS % 1.7 % (0.0-6.0); HEMATOCRIT 38.1 % (34.2-44.1); HEMOGLOBIN 12.1 g/dL (12.0-16.0); LYMPHOCYTES # (AUTO) 1.7 (1.0-3.2); LYMPHOCYTES % 17.5 % (18.0-39.1); MEAN CORPUSCULAR HGB CONC 31.8 g/dL (31-35); MEAN CORPUSCULAR VOLUME 97.7 fL (81-99); MONOCYTES # (AUTO) 0.7 (0.2-0.8); NEUTROPHILS # (AUTO) 6.9 (2.1-6.9); NEUTROPHILS % 69.6 % (38.7-80.0); PLATELET COUNT 145 x10e3/uL (140-360); RED CELL DISTRIBUTION WIDTH 17.5 % (11.7-14.4)
[2019-07-23 06:29] LABS: ANION GAP 12.7 mmol/L (8-16); BLOOD UREA NITROGEN 20 mg/dL (7-26); BUN/CREATININE RATIO 29 (6-25); CALCIUM 8.7 mg/dL (8.4-10.2); CARBON DIOXIDE 27 mmol/L (22-29); CHLORIDE 113 mmol/L (98-107); EST GLOMERULAR FILTRATION RATE > 60 ML/MIN (60-); GLUCOSE 84 mg/dL (74-118); SODIUM 150 mmol/L (136-145)
[2019-07-23 06:33] LABS: POTASSIUM 2.7 mmol/L (3.5-5.1)
--- NOTE | 2019-07-23 06:44 | NUR ---
Left voicemail for Dr. Giles regarding potassium 2.7. Gave report to morning nurse. Patient lying quietly in bed. RR even and unlabored. No acute distress noted.
[2019-07-23 06:48] LABS: EOSINOPHILS % (MANUAL) 1 % (0-7); LYMPHOCYTES % (MANUAL) 19 % (19-48); MONOCYTES % (MANUAL) 10 % (3.4-9.0); NEUTROPHILS % (MANUAL) 70 % (40-74)
[2019-07-23 06:49] LABS: PLATELET ESTIMATE MODERATELY DECREASED; PLATELET MORPHOLOGY COMMENT FEW LARGE; RBC MORPHOLOGY COMMENT NORMAL
--- NOTE | 2019-07-23 07:10 | NUR ---
RECEIVED PATIENT RESTING IN BED. NO ACUTE DISTRESS NOTED. NO S/S OF PAIN NOTED. CALL LIGHT WITHIN REACH. BED IN THE LOWEST POSITION.
[2019-07-23] MEDS: FAMOTIDINE 20 MG TAB PO SCH ×2 (09:05→16:52)
[2019-07-23] MEDS: PENTOXIFYLLINE 400 MG TAB CR PO SCH ×2 (09:08→16:52)
[2019-07-23] MEDS: DOCUSATE SODIUM 100 MG CAP PO SCH ×2 (09:08→16:52)
[2019-07-23] MEDS: METOPROLOL TARTRATE 25 MG TAB PO SCH ×2 (09:08→16:52)
[2019-07-23] MEDS: ASCORBIC ACID 500 MG TAB PO SCH ×2 (09:08→16:52)
[2019-07-23] MEDS: PREDNISONE 20 MG TAB PO SCH (09:08)
[2019-07-23] MEDS: NIFEDIPINE CR 30 MG TAB PO SCH (09:08)
[2019-07-23] MEDS: ATORVASTATIN 10 MG TAB PO SCH (09:08)
[2019-07-23] MEDS: POTASSIUM CHLORIDE 10MEQ EA PO SCH ×2 (10:17→14:11)
--- NOTE | 2019-07-23 10:39 | NUR ---
[id number] time spent 45 min
--- NOTE | 2019-07-23 11:13 | Consultation ---
DATE OF CONSULTATION: 07/23/2019 REASON FOR CONSULTATION: Recommendations on antibiotic. HISTORY OF PRESENT ILLNESS: Ms. Dela Cruz is a pleasant 79-year-old female, who has a history of hypertension, debility, rheumatoid arthritis on Remicade, hypothyroidism, major depression, osteoarthritis, interstitial lung disease, not a really good source of information. The patient was admitted to [facility] on July 16. She came to the emergency room because of not feeling well. The patient was seen by Dr. Berkowitz with a normal chest x-ray, interstitial lung disease. She is admitted with UTI and sepsis on admission, gram-negative bacteremia. The patient, who since admission she has been on antibiotic. The urine showed E. coli, which was pansensitive. The blood showed E. coli, which was pansensitive and the patient has been on the following medications. She is on prednisone 20 mg daily, Procardia, Colace, Trental, Lopressor, Lipitor, Pepcid, Synthroid, and Lovenox. She was given cefepime. LABORATORY DATA: Her white count when she first came was 14.79, came down to 9.8, hemoglobin 12, and hematocrit 38. Her sodium 150, potassium of 2.7 with creatinine of 0.7. When she first came, it was 1.14. PAST MEDICAL HISTORY: As above. PAST SURGICAL HISTORY: As above. ALLERGIES: NKA. SOCIAL HISTORY: There is no smoking, drug abuse, or alcohol abuse. FAMILY HISTORY: Unremarkable. REVIEW OF SYSTEMS: At present time, the patient is feeling weak. She does have deformity in her joint. Otherwise, HEENT: Negative. PULMONARY: Negative. CARDIAC: Negative. : Negative. PHYSICAL EXAMINATION: GENERAL: She is currently alert and oriented, follows simple command. VITAL SIGNS: Stable. Afebrile. The last time she had fever was on July 17. HEENT: Normocephalic. NECK: Supple. No JVD. No lymphadenopathy. No thyromegaly. CHEST: Clear bilateral. HEART: S1 and S2. No S3, S4, or murmur. ABDOMEN: Soft. Bowel sounds present. No tenderness. EXTREMITIES: No edema. SKIN: No rash. IMPRESSION: 1. Sepsis on admission secondary to pyelonephritis, bacteremia Escherichia coli. Clinically seems to be doing well. From Infectious Disease point of view, can be changed to Keflex 500 mg p.o. t.i.d. to finish a total of 14 days. Recheck urinalysis one week after finishing the treatment. 2. Severe rheumatoid arthritis. 3. Acute kidney injury, resolved. 4. Chronic pulmonary infiltrate probably due to her rheumatoid arthritis. 5. Debility. Continue with PT/OT. 6. We will follow with you. MD JORDON Arciniega/ESME /[id number]
--- NOTE | 2019-07-23 12:00 | NUR ---
MET W THE PT AND DTR AT THE BEDSIDE REGARDING SNF CHOICE. THE MOTHER STATES HER DTR CORY @ [phone] WENT TO LOOK AT 1 FACILITY. PT'S DTR CALLED THE GDTR AT THE BEDSIDE. CORY STATED HER UNCLE WILL HAVE THE FINAL SAY. STATES THE UNCLE VISITED THE PT OVER THE WEEKEND AND NOONE SPOKE TO HIM ABOUT THE PT HAVING TO LEAVE THE HOSPITAL. INFORMED THE PT AND FAMILY OF APPROPRIATE LOC. GDTR VERBALIZED UNDERSTANDING. STATES [place] W[place] TO [place] AND WANTED TO VISIT [facility] TODAY. WE AGREED TO F/U BEFORE 3PM TODAY.
--- NOTE | 2019-07-23 12:43 | Diagnostic Imaging Report ---
PROCEDURE: X-RAY MODIFIED BARIUM SWALLOW COMPARISON: None. INDICATION: Aspiration Radiation Details: Fluoroscopy time: 2.2 minutes Cumulative dose: 9.4 mGy DISCUSSION: Fluoroscopic examination was performed in conjunction with speech pathology during swallowing a variety of thin and thick liquid consistencies. Provided images demonstrate silent laryngeal penetration and silent trace aspiration. CONCLUSION: Modified barium swallow demonstrating silent laryngeal penetration and silent trace aspiration. Please refer to the speech pathology report for further details. Signed by: Taye Connelly MD on 07/23/2019 12:40 PM
--- NOTE | 2019-07-23 13:55 | NUR ---
RECEIVED CALL FROM [facility] STATING THE FAMILY HAD DECIDED ON A FACILITY. CORY / GRANDDAUGHTER CALLED AND CHOSE [facility]. REFERRAL WAS FAXED TO [facility] AT OFF: [phone] / FAX: [phone].
[2019-07-23] MEDS: ENOXAPARIN SOD INJ 40 MG/0.4 ML SYR SC SCH (16:52)
--- NOTE | 2019-07-23 17:16 | NUR ---
RECEIVED CALL FROM BRIDGET BALDERAS STATING THE REFERRAL WAS SUBMITTED TO PT'S INSURER FOR AUTH. WILL AWAIT DETERMINATION.
--- NOTE | 2019-07-23 17:40 | NUR ---
REPORT GIVEN TO ANOTHER NURSE IN UNIT THAT'S TAKING PATIENT. PATIENT IS IN STABLE CONDITION.
--- NOTE | 2019-07-23 19:00 | NUR ---
patient received lying quietly in bed. no signs of pain or discomfort noted. respirations even and unlabored. 02/2l/nc in use. pm assessment complete. side rails up x 3. bed alarm on for safety.
[2019-07-24] VITALS (7 sets, daily range): BP systolic 109–145; BP diastolic 65–84
[2019-07-24] MEDS: CEFEPIME 1GM/NS 0.9% 50 ML 50 ML IV SCH ×2 (01:36→14:03)
[2019-07-24 05:35] LABS: BASOPHILS % 0.4 % (0.0-1.0); EOSINOPHILS # (AUTO) 0.1 (0.0-0.4); EOSINOPHILS % 0.8 % (0.0-6.0); HEMATOCRIT 38.3 % (34.2-44.1); HEMOGLOBIN 12.1 g/dL (12.0-16.0); LYMPHOCYTES # (AUTO) 1.5 (1.0-3.2); LYMPHOCYTES % 17.9 % (18.0-39.1); MEAN CORPUSCULAR HGB CONC 31.6 g/dL (31-35); MEAN CORPUSCULAR VOLUME 98.2 fL (81-99); MONOCYTES # (AUTO) 0.6 (0.2-0.8); MONOCYTES % 6.5 % (4.4-11.3); NEUTROPHILS % 70.5 % (38.7-80.0); PLATELET COUNT 157 x10e3/uL (140-360); RED CELL DISTRIBUTION WIDTH 17.5 % (11.7-14.4)
[2019-07-24 05:59] LABS: ANION GAP 12.4 mmol/L (8-16); BLOOD UREA NITROGEN 18 mg/dL (7-26); BUN/CREATININE RATIO 26 (6-25); CALCIUM 8.2 mg/dL (8.4-10.2); CARBON DIOXIDE 26 mmol/L (22-29); CHLORIDE 119 mmol/L (98-107); CREATININE, SERUM 0.69 mg/dL (0.57-1.11); EST GLOMERULAR FILTRATION RATE > 60 ML/MIN (60-); GLUCOSE 96 mg/dL (74-118); POTASSIUM 4.4 mmol/L (3.5-5.1); SODIUM 153 mmol/L (136-145)
[2019-07-24] MEDS: LEVOTHYROXINE SODIUM 75 MCG TAB PO SCH (06:00)
--- NOTE | 2019-07-24 06:00 | NUR ---
am synthroid crushed and attempted to give to patient. patient difficult to awaken enough to take medication at this time.
[2019-07-24 06:18] LABS: PHOSPHORUS 2.6 MG/DL (2.3-4.7)
--- NOTE | 2019-07-24 07:40 | NUR ---
PATIENT IS ALERT TO SELF, CONFUSED, AND IS IN STABLE CONDITION WITH NO S/S OF RESPIRATORY DISTRESS. NO PAIN INDICATED. HEEL PROTECTORS APPLIED. BED ALARM APPLIED. CALL LIGHT IS WITHIN REACH, PATIENT INSTRUCTED TO CALL FOR ASSISTANCE NEEDED.
[2019-07-24] MEDS: IPRATROPIUM BROMIDE 0.02% 2.5 ML NEB NEB SCH ×5 (07:55→23:00)
[2019-07-24] MEDS: ALBUTEROL SULF 0.083% NEB SOLN 3 ML NEB NEB SCH ×5 (07:55→23:00)
[2019-07-24] MEDS: ASCORBIC ACID 500 MG TAB PO SCH ×2 (08:32→16:33)
[2019-07-24] MEDS: PREDNISONE 20 MG TAB PO SCH (08:32)
[2019-07-24] MEDS: NIFEDIPINE CR 30 MG TAB PO SCH (08:32)
[2019-07-24] MEDS: PENTOXIFYLLINE 400 MG TAB CR PO SCH ×2 (08:32→16:33)
[2019-07-24] MEDS: DOCUSATE SODIUM 100 MG CAP PO SCH ×2 (08:33→16:33)
[2019-07-24] MEDS: METOPROLOL TARTRATE 25 MG TAB PO SCH ×2 (08:33→16:33)
[2019-07-24] MEDS: ATORVASTATIN 10 MG TAB PO SCH (08:33)
[2019-07-24] MEDS: FAMOTIDINE 20 MG TAB PO SCH ×2 (08:33→16:33)
[2019-07-24] MEDS: DEXTROSE 5%/0.45% SOD CHL 1,000 ML IV SCH ×2 (09:36→18:45)
[2019-07-24 10:49] LABS: LYMPHOCYTES % (MANUAL) 18 % (19-48); MONOCYTES % (MANUAL) 7 % (3.4-9.0); NEUTROPHILS % (MANUAL) 75 % (40-74); PLATELET ESTIMATE MODERATELY DECREASED; RBC MORPHOLOGY COMMENT NORMAL
--- NOTE | 2019-07-24 13:29 | Diagnostic Imaging Report ---
CT of the abdomen and pelvis, with contrast, 07/24/2019. History: Fever, dehydration, sepsis. Comparison: CT chest 06/05/2019. Technique: Multidetector CT scanning of the abdomen and pelvis was performed from the level of the lung bases to the inferior pubic rami after intravenous administration of contrast. Coronal and sagittal multiplanar reformations were obtained. RADIATION DOSE: Total DLP: 409 mGy*cm Dose modulation, iterative reconstruction, and/or weight based adjustment of the mA/kV was utilized to reduce the radiation dose to as low as reasonably achievable. Discussion: LUNG BASES: There is bibasilar atelectasis. ABDOMEN: The liver, gallbladder, biliary tree, spleen, pancreas, adrenal glands, and kidneys are normal. The hepatic vein, portal vein, and splenic vein are patent. The abdominal aorta is within normal limits for size. A 1.6 x 1.2 x 5 cm hypodense filling defect is present along the posterior wall of the distal descending thoracic aorta. The remainder of the aorta and iliac vessels are patent. Evaluation of the bowel is limited. Streak artifact from dense residual oral contrast in the transverse colon is also noted limiting evaluation in the surrounding area. There is no bowel dilatation. Multiple diverticuli are present within the sigmoid colon without evidence of adjacent inflammation. There is no evidence of adenopathy or free fluid. PELVIS: The bladder is unremarkable. Hypodensity is noted within the midportion of the uterus. Ovaries are not visible. There is no evidence of free fluid or adenopathy. BONES AND SOFT TISSUES: Advanced degenerative changes are present throughout the lumbar spine without evidence of lytic or sclerotic lesion. IMPRESSION: 1. Colonic diverticulosis without evidence of diverticulitis. No evidence of intra-abdominal abscess or free fluid. 2. 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 3. Uterine hypodensity may represent fibroid. This may be further evaluated with pelvic ultrasound if clinically indicated. Signed by: Amandeep Shah on 07/24/2019 1:26 PM
[2019-07-24] MEDS ORDERED: IOPAMIDOL 370 MG/ML 200 ML INFUS..BTL INJ ONE (15:20)
[2019-07-24] MEDS ORDERED: SODIUM CHLORIDE 0.9% 50ML 50 ML ONE (15:20)
[2019-07-24] MEDS: ENOXAPARIN SOD INJ 40 MG/0.4 ML SYR SC SCH (16:33)
--- NOTE | 2019-07-24 18:50 | NUR ---
PATIENT IN STABLE CONDITION WITH NO S/S OF RESPIRATORY DISTRESS. NO PAIN INDICATED. TELEMETRY APPLIED. 02 APPLIED. HEEL PROTECTORS APPLIED. DIAPER APPLIED. BED ALARM ON. CALL LIGHT IS WITHIN REACH, PATIENT INSTRUCTED TO CALL FOR ASSISTANCE NEEDED. BEDSIDE REPORT GIVEN TO ONCOMING NURSE.
--- NOTE | 2019-07-24 19:00 | NUR ---
patient received sleeping, lying quietly in bed. respirations even and unlabored. patient easily awakens to name when called. no signs of pain/discomfort noted. ivf continue to infuse without difficulty. pm assessment complete. sr up x 3. bed alarm remains on for safety.
[2019-07-25] VITALS (8 sets, daily range): BP systolic 115–157; BP diastolic 55–95
[2019-07-25] MEDS: IPRATROPIUM BROMIDE 0.02% 2.5 ML NEB NEB SCH ×2 (01:00→07:05)
[2019-07-25] MEDS: ALBUTEROL SULF 0.083% NEB SOLN 3 ML NEB NEB SCH ×4 (01:00→19:41)
[2019-07-25] MEDS: CEFEPIME 1GM/NS 0.9% 50 ML 50 ML IV SCH ×2 (02:00→14:00)
[2019-07-25] MEDS: DEXTROSE 5%/0.45% SOD CHL 1,000 ML IV SCH ×2 (02:43→16:40)
--- NOTE | 2019-07-25 04:00 | NUR ---
patient more awake through the night tonight. no c/o pain/discomfort noted. ivf continue to infuse without difficulty. am labs drawn from right picc at this time.
[2019-07-25 05:10] LABS: BASOPHILS % 0.5 % (0.0-1.0); EOSINOPHILS # (AUTO) 0.2 (0.0-0.4); EOSINOPHILS % 1.7 % (0.0-6.0); HEMATOCRIT 38.3 % (34.2-44.1); HEMOGLOBIN 11.8 g/dL (12.0-16.0); LYMPHOCYTES # (AUTO) 1.8 (1.0-3.2); LYMPHOCYTES % 20.6 % (18.0-39.1); MEAN CORPUSCULAR HEMOGLOBIN 30.6 pg (28-32); MEAN CORPUSCULAR HGB CONC 30.8 g/dL (31-35); MEAN CORPUSCULAR VOLUME 99.5 fL (81-99); MONOCYTES # (AUTO) 0.7 (0.2-0.8); MONOCYTES % 7.5 % (4.4-11.3); NEUTROPHILS # (AUTO) 5.7 (2.1-6.9); NEUTROPHILS % 65.7 % (38.7-80.0); PLATELET COUNT 177 x10e3/uL (140-360); RED BLOOD COUNT 3.85 x10e6/uL (3.6-5.1); RED CELL DISTRIBUTION WIDTH 17.7 % (11.7-14.4)
[2019-07-25 05:28] LABS: ANION GAP 9.7 mmol/L (8-16); BLOOD UREA NITROGEN 15 mg/dL (7-26); BUN/CREATININE RATIO 20 (6-25); CALCIUM 8.6 mg/dL (8.4-10.2); CARBON DIOXIDE 24 mmol/L (22-29); CHLORIDE 115 mmol/L (98-107); CREATININE, SERUM 0.76 mg/dL (0.57-1.11); EST GLOMERULAR FILTRATION RATE > 60 ML/MIN (60-); GLUCOSE 165 mg/dL (74-118); SODIUM 146 mmol/L (136-145)
[2019-07-25] MEDS: LEVOTHYROXINE SODIUM 75 MCG TAB PO SCH (05:32)
[2019-07-25 05:43] LABS: POTASSIUM 2.7 mmol/L (3.5-5.1)
[2019-07-25] MEDS ORDERED: POTASSIUM CHLORIDE 20 MEQ TAB CR PO STA (05:58)
--- NOTE | 2019-07-25 06:00 | NUR ---
k+ 2.7 called to at this time. order received to give kdur 40meq po now and repeat the same dose in 4 hrs.
--- NOTE | 2019-07-25 07:10 | NUR ---
PT RESTING QUIETLY DURING BEDSIDE ROUNDING.
[2019-07-25] MEDS: FAMOTIDINE 20 MG TAB PO SCH ×2 (07:30→16:19)
[2019-07-25 08:20] LABS: LYMPHOCYTES % (MANUAL) 25 % (19-48); MONOCYTES % (MANUAL) 2 % (3.4-9.0); NEUTROPHILS % (MANUAL) 73 % (40-74); PLATELET ESTIMATE MODERATELY DECREASED; PLATELET MORPHOLOGY COMMENT FEW LARGE; RBC MORPHOLOGY COMMENT NORMAL
--- NOTE | 2019-07-25 08:45 | NUR ---
PT ONLY ATE ABOUT 25% OF MEAL; DRANK HER COFFEE AND JUICE
[2019-07-25] MEDS: ATORVASTATIN 10 MG TAB PO SCH (09:00)
[2019-07-25] MEDS: DOCUSATE SODIUM 100 MG CAP PO SCH ×2 (09:00→16:19)
[2019-07-25] MEDS: NIFEDIPINE CR 30 MG TAB PO SCH (09:00)
[2019-07-25] MEDS: PENTOXIFYLLINE 400 MG TAB CR PO SCH ×2 (09:00→16:20)
[2019-07-25] MEDS: METOPROLOL TARTRATE 25 MG TAB PO SCH ×2 (09:00→16:20)
[2019-07-25] MEDS: ASCORBIC ACID 500 MG TAB PO SCH ×2 (10:14→16:21)
[2019-07-25] MEDS ORDERED: POTASSIUM CHLORIDE 20 MEQ TAB CR PO SCH (10:30)
--- NOTE | 2019-07-25 10:56 | NUR ---
SPOKE WITH BRIDGET AT [facility], STATES SENT UPDATES THAT WERE RECEIVED YESTERDAY AND NOW WAITING ON AUTH.
--- NOTE | 2019-07-25 12:30 | NUR ---
PT NOT WANTING TO EAT.
[2019-07-25] MEDS ORDERED: NYSTATIN SUSPENSION 5 ML UDC PO SCH (13:00)
--- NOTE | 2019-07-25 14:25 | NUR ---
pt refusing therapy two different time today due to fatigue, nurse informed and k+ was low today. f/u tomorrow Addendum: 07/25/19 at 1426 by Victoriano Garcia PTA Amended: Links added.
[2019-07-25] MEDS: NYSTATIN SUSPENSION 5 ML UDC PO SCH ×3 (15:00→21:00)
--- NOTE | 2019-07-25 15:23 | NUR ---
CORRECTION FACILITY DISCHARGE INFORMATION PATIENT HAS BEEN ACCEPTED TO: [facility] NAME: [facility] ADDRESS: [id number] , [place] [address] ACCEPTING MD: DR NOVAK ROOM: 42A NURSE CALL REPORT TO: IMM SIGNED AND OBTAINED (if applicable): CALLED FAMILY AND EDUCATED VIA TELEPHONE SOHAILERIN TADEOCHERYL [phone] THE FOLLOWING DOCUMENTS MUST ACCOMPANY PATIENT FOR TRANSFER: COPIED CHART: CLINICALS IN PACKET AND PASRR.
--- NOTE | 2019-07-25 15:30 | NUR ---
PT DOWN VIA BED FOR A CTA.
--- NOTE | 2019-07-25 16:15 | NUR ---
PT BACK IN ROOM
--- NOTE | 2019-07-25 16:45 | NUR ---
RADIOLOGY CALLED ABOUT CTA RESULTS.AND STATING HE WOULD CALL DR Lori VAZQUEZ.
[2019-07-25] MEDS: ENOXAPARIN SOD INJ 60 MG/0.6 ML SYR SC SCH (16:54)
--- NOTE | 2019-07-25 16:59 | Diagnostic Imaging Report ---
CTA of the chest. History: Concern for aortic dissection. Comparison: CT abdomen/pelvis from 07/24/2019, CT chest without contrast from 06/05/2019. Technique: Multidetector CT scanning of the chest was performed from the level of the apices to the upper abdomen before and after intravenous administration of contrast. Coronal and sagittal multiplanar reformations were obtained. RADIATION DOSE: Total DLP: 660.86 mGy*cm Dose modulation, iterative reconstruction, and/or weight based adjustment of the mA/kV was utilized to reduce the radiation dose to as low as reasonably achievable. FINDINGS: Vascular: The main pulmonary artery is enlarged measuring up to 3.8 cm in diameter which can be seen in the setting of pulmonary hypertension. There is an large, eccentric filling defect identified within the right main pulmonary artery compatible with pulmonary embolism. The more distal right-sided pulmonary arteries are patent. No left-sided filling defect is appreciated. There is prominence of the right ventricle and comparison to the left suggesting component of right-sided heart strain. The thoracic aorta is normal course and caliber with atherosclerotic calcifications within its course and branch vessels including the coronary arteries. The origins of the great vessels are patent. Atherosclerotic plaque noted along the proximal subclavian arteries resulting in less than 50% luminal narrowing. The origins of the vertebral arteries are patent. Again identified is a large mural thrombus along the posterior wall of the descending thoracic aorta measuring up to 1.3 x 1.5 x 4.9 cm as noted on the recent prior abdomen/pelvis examination. Right-sided PICC line identified with distal tip terminating within the SVC. Nonvascular: The visualized structures of the base of the neck demonstrate no significant abnormalities. There is no abnormal pericardial fluid present. There is no abnormal axillary, mediastinal, or hilar lymph node enlargement. The trachea and proximal airways are patent. Calcified granulomata again identified within the left lung apex. There are scattered groundglass opacities identified with a lower lobe predominance which are similar to and better evaluated on the dedicated prior noncontrast CT of the chest. There is no evidence for consolidation, pneumothorax, mass, suspicious nodule, or pleural effusion. The abdominal contents were better evaluated on the recent prior dedicated CT abdomen/pelvis examination. IMPRESSION: 1. Filling defect identified within the right main pulmonary artery as detailed above compatible with pulmonary embolus with CT findings suggestive of right-sided heart strain. 2. Mural thrombus identified along the posterior wall of the descending thoracic aorta. No evidence for aneurysmal dilatation or dissection within the thoracic aorta. 3. Additional stable findings as above. Findings discussed with Dr. Skinner at 445 pm on 07/25/2019. Signed by: Dr. Adolfo Lee MD on 07/25/2019 4:56 PM
--- NOTE | 2019-07-25 18:29 | Progress Note ---
DATE: 07/25/2019 SUBJECTIVE: Ms. Dela Cruz is currently doing well. She does have past medical history of hypertension, debility, rheumatoid arthritis on Remicade, hypothyroidism, osteoarthritis, depression, end-stage lung disease, not a good source of information, comes in with UTI, sepsis, gram-negative. The patient is currently going for a CAT scan. Clinically, seems to be better. REVIEW OF SYSTEMS: There is nothing new. LABORATORY DATA: White count did come down to 8.6, hemoglobin 11.8. Sodium 146, potassium 2.7, creatinine 0.76. The patient grew E. coli from the blood and in the urine, it was pansensitive. MEDICATIONS: The patient is currently on vitamin C, Procardia, Colace, Trental, Lipitor, levothyroxine, and cefepime. IMPRESSION: Sepsis on admission, pyelonephritis, urinary tract infection. Can change to Ancef 1 g IV q.8. Recheck blood cultures. Recheck CBC. Recheck chem panel. Sepsis seems to be getting better. We will follow up with the CAT scan. Further recommendations to follow. Can change to oral antibiotic when she is stable to finish at least 14 days of antibiotic and change to Keflex 500 mg p.o. t.i.d. once clinically stable. MD JORDON Arciniega/JANINEL /[id number]
--- NOTE | 2019-07-25 19:15 | NUR ---
patient received awake, alert, lying quietly in bed. respirations even and unlabored. no c/o pain noted. ivf continue to infuse without difficulty. pm assessment complete. call toro placed within reach. patient instructed to call for assistance when needed.
--- NOTE | 2019-07-25 20:13 | Consultation ---
DATE OF CONSULTATION: 07/25/2019 Cardiology Consultation CHIEF COMPLAINT: The patient is a 79-year-old admitted with severe weakness. HISTORY OF PRESENT ILLNESS: The patient is a 79-year-old with known rheumatoid arthritis and interstitial lung disease, who came into the emergency room with severe weakness and some shortness of breath. The patient was started on steroids and diuresed with IV Lasix. A CT scan of the abdomen and pelvis was done, which demonstrated mural thrombus in the descending thoracic aorta and Cardiology was consulted. PAST MEDICAL HISTORY: Significant for: 1. Hypertension. 2. Rheumatoid arthritis. 3. Interstitial lung disease. 4. Echocardiogram done in May 2019 demonstrating moderate right ventricular enlargement and moderate right ventricular dysfunction. SOCIAL HISTORY: The patient does not drink, does not smoke. FAMILY HISTORY: There is a known family history of hypertension. PHYSICAL EXAMINATION: GENERAL: The patient is in no obvious distress. VITAL SIGNS: Included a temperature of 97.8, pulse was 102, and blood pressure 110/60. HEAD, EARS, EYES, NOSE, AND THROAT: The patient's cranium was normocephalic and atraumatic. Extraocular muscles were intact. Sclerae were anicteric. Pupils were equal, round, and reactive to light. NECK: Supple. No jugular venous distention. CARDIAC: Demonstrated normal S1 and S2 with a short 2/6 systolic murmur. CHEST: Demonstrated some rales at the bases. ABDOMEN: Demonstrated no tenderness. No masses. EXTREMITIES: The patient had no clubbing, no cyanosis, no edema. NEUROLOGIC: The patient was awake and able to converse. DIAGNOSTIC DATA: The patient's EKG demonstrated sinus tachycardia with nonspecific ST and T-wave changes. IMPRESSION: The patient is a 79-year-old with incidental finding of mural thrombus noted in the descending thoracic aorta on CT scan. RECOMMENDATIONS: As follows: 1. The patient will need to be started on full-dose anticoagulation and Lovenox 1 mg/kg q.12 hours has been ordered. 2. The patient will require a CTA of the thoracic aorta to exclude any dissection. MD BARTOLOME Stewart/JANINEL /[id number] cc: Victoriano Giles MD
[2019-07-25] MEDS ORDERED: ENOXAPARIN SOD INJ 40 MG/0.4 ML SYR SC SCH (21:00)
[2019-07-26] VITALS: BP 150/86
--- NOTE | 2019-07-26 | NUR ---
patient turned and repositioned for comfort. no c/o pain/discomfort noted at this time.
[2019-07-26] MEDS: CEFEPIME 1GM/NS 0.9% 50 ML 50 ML IV SCH ×2 (01:33→13:06)
[2019-07-26] MEDS ORDERED: IOPAMIDOL 370 MG/ML 200 ML INFUS..BTL INJ ONE (02:10)
[2019-07-26] MEDS ORDERED: SODIUM CHLORIDE 0.9% 100 ML 100 ML ONE (02:11)
[2019-07-26 04:00] VITALS: BP 158/95
[2019-07-26] MEDS: ENOXAPARIN SOD INJ 60 MG/0.6 ML SYR SC SCH ×2 (05:00→18:00)
[2019-07-26] MEDS: NYSTATIN SUSPENSION 5 ML UDC PO SCH ×5 (05:00→21:00)
[2019-07-26] MEDS: LEVOTHYROXINE SODIUM 75 MCG TAB PO SCH (05:35)
[2019-07-26 05:59] LABS: MAGNESIUM 1.6 MG/DL (1.3-2.1); PHOSPHORUS 2.2 MG/DL (2.3-4.7)
[2019-07-26 06:16] LABS: ANION GAP 10.3 mmol/L (8-16); BLOOD UREA NITROGEN 9 mg/dL (7-26); BUN/CREATININE RATIO 15 (6-25); CALCIUM 8.4 mg/dL (8.4-10.2); CARBON DIOXIDE 21 mmol/L (22-29); CHLORIDE 111 mmol/L (98-107); CREATININE, SERUM 0.59 mg/dL (0.57-1.11); EST GLOMERULAR FILTRATION RATE > 60 ML/MIN (60-); GLUCOSE 75 mg/dL (74-118); POTASSIUM 3.3 mmol/L (3.5-5.1); SODIUM 139 mmol/L (136-145)
--- NOTE | 2019-07-26 07:00 | NUR ---
BEDSIDE SHIFT REPORT RECEIVED FROM THE BACK SHOE CUTTER RN. EDUCATED PT ABOUT FALL PRECAUTIONS. BED ALARM IS ON. CALL LIGHT WITH IN EASY REACH. INSTRUCTED PT TO CALL FOR ANY NEEDS. PT DENIES NEEDS AT THIS TIME.
[2019-07-26] MEDS: ALBUTEROL SULF 0.083% NEB SOLN 3 ML NEB NEB SCH ×2 (07:15→12:00)
[2019-07-26 07:50] VITALS: BP 142/83
[2019-07-26] MEDS: FAMOTIDINE 20 MG TAB PO SCH ×2 (08:00→18:00)
[2019-07-26 08:41] VITALS: BP 142/83
[2019-07-26] MEDS: DEXTROSE 5%/0.45% SOD CHL 1,000 ML IV SCH ×2 (08:46→19:20)
[2019-07-26] MEDS: DOCUSATE SODIUM 100 MG CAP PO SCH ×2 (08:53→17:00)
[2019-07-26] MEDS: METOPROLOL TARTRATE 25 MG TAB PO SCH ×2 (08:54→18:00)
[2019-07-26] MEDS: NIFEDIPINE CR 30 MG TAB PO SCH (08:54)
[2019-07-26] MEDS: ATORVASTATIN 10 MG TAB PO SCH (08:55)
[2019-07-26] MEDS ORDERED: PREDNISONE 10 MG TAB PO SCH (09:00)
[2019-07-26] MEDS: ASCORBIC ACID 500 MG TAB PO SCH ×2 (09:00→18:00)
[2019-07-26] MEDS: PENTOXIFYLLINE 400 MG TAB CR PO SCH ×2 (09:00→18:00)
--- NOTE | 2019-07-26 10:00 | NUR ---
PT IS REFUSING MEDIATIONS. PT REFUSED K-DUR
[2019-07-26 11:50] VITALS: BP 153/81
[2019-07-26] MEDS: POTASSIUM CHLORIDE 20 MEQ TAB CR PO PRN (13:14)
[2019-07-26 15:49] VITALS: BP 139/70
--- NOTE | 2019-07-26 19:00 | NUR ---
patient received awake, alert, sitting up in bed. son noted at the patients bedside. son attempting to feed patient dinner at this time. ivf continue to infuse without difficulty. pm assessment complete. patient/son instructed to call for assistance when needed.
[2019-07-27] VITALS (7 sets, daily range): BP systolic 100–133; BP diastolic 59–79
[2019-07-27] MEDS: CEFEPIME 1GM/NS 0.9% 50 ML 50 ML IV SCH ×2 (02:00→15:00)
[2019-07-27] MEDS: ENOXAPARIN SOD INJ 60 MG/0.6 ML SYR SC SCH ×2 (05:00→18:00)
[2019-07-27] MEDS: NYSTATIN SUSPENSION 5 ML UDC PO SCH ×5 (05:00→21:00)
[2019-07-27] MEDS: LEVOTHYROXINE SODIUM 75 MCG TAB PO SCH (06:00)
[2019-07-27] MEDS: ALBUTEROL SULF 0.083% NEB SOLN 3 ML NEB NEB SCH ×3 (06:55→19:25)
--- NOTE | 2019-07-27 07:00 | NUR ---
BEDSIDE SHIFT REPORT RECEIVED FROM THE STONE POLISHER HAND RN. EDUCATED PT ABOUT FALL PRECAUTIONS. BED ALARM IS ON. CALL LIGHT WITH IN EASY REACH. INSTRUCTED PT TO CALL FOR ANY NEEDS. PT DENIES NEEDS AT THIS TIME.
[2019-07-27] MEDS: FAMOTIDINE 20 MG TAB PO SCH ×2 (08:15→16:30)
[2019-07-27] MEDS: DEXTROSE 5%/0.45% SOD CHL 1,000 ML IV SCH ×2 (08:40→20:30)
[2019-07-27] MEDS: METOPROLOL TARTRATE 25 MG TAB PO SCH ×2 (09:30→18:00)
[2019-07-27] MEDS: NIFEDIPINE CR 30 MG TAB PO SCH (09:30)
[2019-07-27] MEDS ORDERED: MAGNESIUM SULFATE 2GM/50ML IV ONE (09:30)
[2019-07-27] MEDS: ATORVASTATIN 10 MG TAB PO SCH (09:46)
[2019-07-27] MEDS: DOCUSATE SODIUM 100 MG CAP PO SCH ×2 (09:48→17:00)
[2019-07-27] MEDS: PENTOXIFYLLINE 400 MG TAB CR PO SCH ×2 (09:49→17:00)
[2019-07-27] MEDS: ASCORBIC ACID 500 MG TAB PO SCH ×2 (09:49→17:00)
--- NOTE | 2019-07-27 10:00 | NUR ---
PT REFUSED NYSTATIN . INFORMED SHE DOESN'T WANT NYSTATIN ANYMORE
[2019-07-27] MEDS ORDERED: MAGNESIUM SULFATE 2GM/50ML 50 ML IV ONE (10:15)
[2019-07-27] MEDS ORDERED: POTASSIUM PHOSPHATE 20 MM in SODIUM CHLORIDE 0.9% 250ML 250 ML IV ONE (10:45)
--- NOTE | 2019-07-27 13:17 | NUR ---
SPOKE WITH BRIDGET AT [facility], SHE REQUESTED UPDATED CLINICALS FAXED TO [phone], CONFIRMED RECEIPT. WILL UPDATE WITH POSSIBLE DISCHARGE ON TUESDAY, SHE STATES AUTH IS GOOD UNTIL TUESDAY.
--- NOTE | 2019-07-27 18:00 | NUR ---
PT REFUSED MEDICATIONS.
--- NOTE | 2019-07-27 18:56 | NUR ---
BEDSIDE SHIFT REPORT GIVEN TO THE LARD RENDERER RN. PT DENIED FURTHER NEEDS.
--- NOTE | 2019-07-27 19:24 | NUR ---
Nutrition Follow-up Note RD Recommendation(s) for Physician: The patient meets criteria for MODERATE protein-calorie malnutrition. -Continue diet as ordered -Rec adding Ensure pudding to current diet -If PO continues to be <50%, please consult for enteral feeding if appropriate Plan of Care: RD following, monitoring for tolerance and adequacy Nutrition reason for involvement: Follow up RD Assessment (07/27) Visited pt in the room. Unable to obtain hx as pt was a poor historian. Per RN Amando, pt has been eating poorly with 25-50% meal intake. Pt requiring feeding assistance. Pt was not drinking the Ensure given. No family on bedside. RN stated that pt was depressed and not wanting to eat. SNF placement pending. Will continue to monitor and follow. (07/21) Chart reviewed. Labs and meds reviewed. 79 y/o F hard hearing and poor historian. Nurse assisting patient with feeding during time of visit, no family in the room. Patient reports fair appetite and intake. PTC showed 25-75% of meals consumed. Per pt nurse, pt has fair intake, tolerating liquid consistency and Ensure pudding. Denied any N/V/D/C. Pt could not provide information on weight hx or interpretation for energy intake or any weight loss. PTC weight hx showed discrepancy. Social work has talked to family about DNF. Will continue to monitor and follow. Principal Problems/Diagnoses: Sepsis on admission, pyelonephritis, urinary tract infection PMH: hypertension, debility, rheumatoid arthritis on Remicade, hypothyroidism, osteoarthritis, depression, end-stage lung disease GI: abdomen soft, non-tender, round, + BM Skin: No pressure wound per customer service associate Labs: (07/27) No labs today Meds: lovenox, cefepime, lipitor, synthroid Ht: 60in Wt: 121lb BMI: 23.6kg/m2 IBW: 100lb Malnutrition Evaluation (07/21/2019) The patient meets criteria for MODERATE protein-calorie malnutrition. Energy intake: <75% of estimated energy requirements for >7 days Weight loss: 1-2% in 1 week (Acute) Fat loss: unable to evaluate Muscle loss: unable to evaluate Supporting Evidence: Fluid accumulation: no accumulation identified Functional Status:, static balancer strength not evaluated but admitted because of weakness Nutrition Prescription (Diet Order): cardiac diet with Ensure Enlive Estimated Nutritional Needs: Calories: 1375 1650kcal(25-30kcal/kg/d) Weight used: CBW Protein: 55 83g(1-1.5g/kg/d) Weight used: CBW Diet Adequacy: Not meeting calorie needs, Not meeting protein needs Tolerance: Tolerating PO Diet Education Needs Assessment: Diet education not indicated. Nutrition Care Level: moderate (decreased appetite with 0-25% meal intake) Nutrition Diagnosis: Inadequate oral intake related to current medical status as evidenced by 0-25% meal intake recorded. Goal: Patient will meet 75-100% of estimated needs by follow up Progress: Not Progressing Interventions: Modified diet, Commercial beverage, Commercial food, Composition, Rate, Route Monitoring/Evaluation: Total energy intake, Total protein intake, Formula/Solution, Modified diet, Liquid supplement, Weight change Signed: Mary Brice MS, RD, LD
--- NOTE | 2019-07-27 19:30 | NUR ---
patient received awake, alert, sitting up in bed talking to family. no c/o pain noted. ivf continue to infuse without difficulty. pm assessment complete. patient/family instructed to call for assistance when needed.
[2019-07-27] MEDS: MIRTAZAPINE 15 MG TAB PO SCH (21:00)
[2019-07-28] VITALS (8 sets, daily range): BP systolic 107–149; BP diastolic 63–88
[2019-07-28] MEDS: CEFEPIME 1GM/NS 0.9% 50 ML 50 ML IV SCH ×2 (02:00→13:37)
[2019-07-28] MEDS: ENOXAPARIN SOD INJ 60 MG/0.6 ML SYR SC SCH ×2 (05:00→17:55)
[2019-07-28] MEDS: NYSTATIN SUSPENSION 5 ML UDC PO SCH ×5 (05:00→21:57)
[2019-07-28 05:18] LABS: BASOPHILS # (AUTO) 0.1 (0.0-0.1); BASOPHILS % 0.7 % (0.0-1.0); EOSINOPHILS # (AUTO) 0.2 (0.0-0.4); EOSINOPHILS % 2.9 % (0.0-6.0); HEMATOCRIT 35.8 % (34.2-44.1); HEMOGLOBIN 11.5 g/dL (12.0-16.0); LYMPHOCYTES # (AUTO) 1.5 (1.0-3.2); LYMPHOCYTES % 20.9 % (18.0-39.1); MEAN CORPUSCULAR HEMOGLOBIN 31.2 pg (28-32); MEAN CORPUSCULAR HGB CONC 32.1 g/dL (31-35); MONOCYTES # (AUTO) 0.6 (0.2-0.8); MONOCYTES % 8.8 % (4.4-11.3); NEUTROPHILS # (AUTO) 4.3 (2.1-6.9); NEUTROPHILS % 60.8 % (38.7-80.0); PLATELET COUNT 204 x10e3/uL (140-360); RED BLOOD COUNT 3.69 x10e6/uL (3.6-5.1); RED CELL DISTRIBUTION WIDTH 17.5 % (11.7-14.4)
[2019-07-28] MEDS: LEVOTHYROXINE SODIUM 75 MCG TAB PO SCH (05:29)
[2019-07-28 05:35] LABS: BLOOD UREA NITROGEN 8 mg/dL (7-26); BUN/CREATININE RATIO 12 (6-25); CALCIUM 7.9 mg/dL (8.4-10.2); CARBON DIOXIDE 23 mmol/L (22-29); CHLORIDE 110 mmol/L (98-107); CREATININE, SERUM 0.69 mg/dL (0.57-1.11); EST GLOMERULAR FILTRATION RATE > 60 ML/MIN (60-); GLUCOSE 88 mg/dL (74-118); SODIUM 139 mmol/L (136-145)
[2019-07-28 05:54] LABS: MAGNESIUM 2.1 MG/DL (1.3-2.1)
[2019-07-28 06:49] LABS: PHOSPHORUS 3.4 MG/DL (2.3-4.7)
--- NOTE | 2019-07-28 07:00 | NUR ---
BEDSIDE SHIFT REPORT RECEIVED FROM THE FILLER IN RN. EDUCATED PT ABOUT FALL PRECAUTIONS. CALL LIGHT WITH IN EASY REACH. INSTRUCTED PT TO CALL FOR ANY NEEDS. PT DENIES NEEDS AT THIS TIME.
[2019-07-28] MEDS: FAMOTIDINE 20 MG TAB PO SCH ×2 (07:30→17:45)
[2019-07-28] MEDS: ALBUTEROL SULF 0.083% NEB SOLN 3 ML NEB NEB SCH ×3 (07:56→19:25)
[2019-07-28 08:11] LABS: ANISOCYTOSIS SLIGHT; BAND NEUTROPHILS % (MANUAL) 1 %; EOSINOPHILS % (MANUAL) 2 % (0-7); LYMPHOCYTES % (MANUAL) 12 % (19-48); METAMYELOCYTES % (MANUAL) 3 % (0-0); MONOCYTES % (MANUAL) 9 % (3.4-9.0); NEUTROPHILS % (MANUAL) 73 % (40-74); PLATELET ESTIMATE ADEQUATE; PLATELET MORPHOLOGY COMMENT FEW EDTA CLUMPING; RBC MORPHOLOGY COMMENT ABNORMAL
[2019-07-28] MEDS: PENTOXIFYLLINE 400 MG TAB CR PO SCH ×2 (09:00→17:55)
[2019-07-28] MEDS: ATORVASTATIN 10 MG TAB PO SCH (09:00)
[2019-07-28] MEDS: ASCORBIC ACID 500 MG TAB PO SCH ×2 (09:00→17:55)
[2019-07-28] MEDS: DOCUSATE SODIUM 100 MG CAP PO SCH ×2 (09:00→17:54)
--- NOTE | 2019-07-28 09:10 | NUR ---
PT KEEP REFUSING MEDICATIONS. HARDLY TAKES 2 OR 3 MEDICATIONS. PT IS NOT EATING WELL. CALLED PT FAMILY . UNABLE TO LEAVE MESSAGE. VOICE BOX FULL.
[2019-07-28] MEDS: METOPROLOL TARTRATE 25 MG TAB PO SCH ×2 (09:11→17:54)
[2019-07-28] MEDS: NIFEDIPINE CR 30 MG TAB PO SCH (09:11)
[2019-07-28] MEDS: POTASSIUM CHLORIDE 20 MEQ TAB CR PO PRN (09:11)
--- NOTE | 2019-07-28 10:00 | NUR ---
DR. JI AT BEDSIDE. INFORMED PT K LEVEL.
[2019-07-28] MEDS: PREDNISONE 10 MG TAB PO SCH (12:55)
[2019-07-28] MEDS: DEXTROSE 5%/0.45% SOD CHL 1,000 ML IV SCH (12:55)
--- NOTE | 2019-07-28 14:55 | NUR ---
PAGED DR WETZEL TO CONFIRM K-DUR DOSAGE. 20 MEQ GIVEN AT 0911 AM.
[2019-07-28] MEDS ORDERED: POTASSIUM CHLORIDE 10MEQ EA PO NR (15:00)
--- NOTE | 2019-07-28 19:00 | NUR ---
BEDSIDE SHIFT REPORT GIVEN TO THE SEPTIC TANK SERVICER RN. PT DENIED FURTHER NEEDS.
--- NOTE | 2019-07-28 19:14 | NUR ---
Report received and walking rounds complete. Pt and resting in bed and no apparent distress. All safety measures ensured and pt call toro near.
[2019-07-28] MEDS: MIRTAZAPINE 15 MG TAB PO SCH (21:57)
[2019-07-29] VITALS (9 sets, daily range): BP systolic 121–170; BP diastolic 67–93
[2019-07-29] MEDS: CEFEPIME 1GM/NS 0.9% 50 ML 50 ML IV SCH ×2 (02:01→14:32)
[2019-07-29] MEDS: DEXTROSE 5%/0.45% SOD CHL 1,000 ML IV SCH ×2 (04:13→18:10)
[2019-07-29] MEDS: ENOXAPARIN SOD INJ 60 MG/0.6 ML SYR SC SCH ×2 (05:57→18:47)
[2019-07-29] MEDS: NYSTATIN SUSPENSION 5 ML UDC PO SCH ×5 (05:57→21:00)
[2019-07-29] MEDS: LEVOTHYROXINE SODIUM 75 MCG TAB PO SCH (05:57)
[2019-07-29] MEDS: ALBUTEROL SULF 0.083% NEB SOLN 3 ML NEB NEB SCH ×3 (06:00→20:00)
--- NOTE | 2019-07-29 07:15 | NUR ---
received am report from nurse and morning rounds done. pt is sleeping, no s/s of distress. call light within reach and side rails are up
--- NOTE | 2019-07-29 07:27 | NUR ---
Bedside report and walking rounds complete with day shift RN.
--- NOTE | 2019-07-29 07:28 | NUR ---
Bedside report and walking rounds complete with day shift RN.
[2019-07-29] MEDS: FAMOTIDINE 20 MG TAB PO SCH ×2 (08:50→17:50)
[2019-07-29] MEDS: ATORVASTATIN 10 MG TAB PO SCH (08:50)
[2019-07-29] MEDS: PREDNISONE 10 MG TAB PO SCH (08:51)
[2019-07-29] MEDS: PENTOXIFYLLINE 400 MG TAB CR PO SCH ×2 (08:51→17:51)
[2019-07-29] MEDS: DOCUSATE SODIUM 100 MG CAP PO SCH ×2 (08:51→17:50)
[2019-07-29] MEDS: METOPROLOL TARTRATE 25 MG TAB PO SCH ×2 (08:51→17:51)
[2019-07-29] MEDS: ASCORBIC ACID 500 MG TAB PO SCH ×2 (08:51→17:51)
[2019-07-29] MEDS: NIFEDIPINE CR 30 MG TAB PO SCH (08:51)
--- NOTE | 2019-07-29 19:43 | NUR ---
PT IS RESTING IN BED. RESPIRATION IS EVEN AND UNLABORED, NO DISTRESS NOTED. BED IN THE LOWEST POSITION, LOCKED, BED ALARM ON, AND CALL LIGHT WITHIN REACH. WILL CONTINUE TO MONITOR.
[2019-07-29] MEDS: MIRTAZAPINE 15 MG TAB PO SCH (21:21)
[2019-07-30] VITALS (8 sets, daily range): BP systolic 141–181; BP diastolic 72–91
[2019-07-30] MEDS: CEFEPIME 1GM/NS 0.9% 50 ML 50 ML IV SCH (02:41)
[2019-07-30] MEDS: ENOXAPARIN SOD INJ 60 MG/0.6 ML SYR SC SCH ×2 (05:00→17:11)
[2019-07-30] MEDS: NYSTATIN SUSPENSION 5 ML UDC PO SCH ×4 (05:00→21:00)
[2019-07-30] MEDS: LEVOTHYROXINE SODIUM 75 MCG TAB PO SCH (06:00)
[2019-07-30] MEDS: DEXTROSE 5%/0.45% SOD CHL 1,000 ML IV SCH ×2 (06:14→19:09)
[2019-07-30] MEDS: ALBUTEROL SULF 0.083% NEB SOLN 3 ML NEB NEB SCH ×3 (07:15→19:38)
--- NOTE | 2019-07-30 08:00 | NUR ---
ASSESSMENT COMPLETED. NO SIGNS OF ANY DISTRESS.
[2019-07-30] MEDS: FAMOTIDINE 20 MG TAB PO SCH ×2 (08:47→17:11)
[2019-07-30] MEDS: ATORVASTATIN 10 MG TAB PO SCH (08:47)
[2019-07-30] MEDS: DOCUSATE SODIUM 100 MG CAP PO SCH ×2 (08:47→17:11)
[2019-07-30] MEDS: PREDNISONE 10 MG TAB PO SCH (08:48)
[2019-07-30] MEDS: ASCORBIC ACID 500 MG TAB PO SCH ×2 (08:48→17:11)
[2019-07-30] MEDS: PENTOXIFYLLINE 400 MG TAB CR PO SCH ×2 (08:48→17:11)
[2019-07-30] MEDS: NIFEDIPINE CR 30 MG TAB PO SCH (08:48)
[2019-07-30] MEDS: METOPROLOL TARTRATE 25 MG TAB PO SCH ×2 (08:48→17:11)
[2019-07-30 09:58] LABS: BASOPHILS # (AUTO) 0.1 (0.0-0.1); BASOPHILS % 0.7 % (0.0-1.0); EOSINOPHILS # (AUTO) 0.1 (0.0-0.4); EOSINOPHILS % 1.9 % (0.0-6.0); HEMATOCRIT 35.9 % (34.2-44.1); HEMOGLOBIN 11.5 g/dL (12.0-16.0); LYMPHOCYTES # (AUTO) 1.3 (1.0-3.2); LYMPHOCYTES % 17.5 % (18.0-39.1); MEAN CORPUSCULAR HEMOGLOBIN 31.3 pg (28-32); MEAN CORPUSCULAR VOLUME 97.6 fL (81-99); MONOCYTES # (AUTO) 0.7 (0.2-0.8); MONOCYTES % 9.9 % (4.4-11.3); NEUTROPHILS % 66.5 % (38.7-80.0); PLATELET COUNT 207 x10e3/uL (140-360); RED BLOOD COUNT 3.68 x10e6/uL (3.6-5.1); RED CELL DISTRIBUTION WIDTH 17.8 % (11.7-14.4)
[2019-07-30 10:25] LABS: ANION GAP 7.6 mmol/L (8-16); BLOOD UREA NITROGEN 6 mg/dL (7-26); BUN/CREATININE RATIO 9 (6-25); CALCIUM 7.7 mg/dL (8.4-10.2); CARBON DIOXIDE 21 mmol/L (22-29); CHLORIDE 108 mmol/L (98-107); CREATININE, SERUM 0.65 mg/dL (0.57-1.11); EST GLOMERULAR FILTRATION RATE > 60 ML/MIN (60-); GLUCOSE 302 mg/dL (74-118); SODIUM 134 mmol/L (136-145)
[2019-07-30 10:37] LABS: POTASSIUM 2.6 mmol/L (3.5-5.1)
[2019-07-30] MEDS: POTASSIUM CHLORIDE 20 MEQ TAB CR PO PRN (10:51)
--- NOTE | 2019-07-30 11:50 | NUR ---
ST NOTE: No orders for NMES at this time, pt unable to participate in traditional HEP for dysphagia therapy, pt tolerating current diet. No further Speech Therapy intervention without orders for NMES to treat dysphagia.
[2019-07-30] MEDS ORDERED: POTASSIUM CHLORIDE 20 MEQ TAB CR PO ONE ×2 (12:00→15:45)
--- NOTE | 2019-07-30 12:00 | NUR ---
DR WETZEL RETURNED CALL NEW ORDERS RECEIVED.
--- NOTE | 2019-07-30 13:09 | NUR ---
EDUCATED ABOUT IMM, SIGNED, FILED IN CHART, WITH COPY LEFT WITH FAMILY AT BEDSIDE.
--- NOTE | 2019-07-30 13:26 | NUR ---
FAXED UPDATES TO [facility], TEXTED DOCTOR TO SEE WHAT PLAN WAS AND WAITING ON RESPONSE.
[2019-07-30] MEDS ORDERED: POTASSIUM CHLORIDE 20MEQ/100ML 200 ML IV ONE ×2 (19:15→23:00)
[2019-07-30] MEDS: MIRTAZAPINE 15 MG TAB PO SCH ×2 (20:05→21:32)
[2019-07-31] VITALS (7 sets, daily range): BP systolic 126–166; BP diastolic 66–91
[2019-07-31] MEDS: NYSTATIN SUSPENSION 5 ML UDC PO SCH ×5 (05:00→21:00)
[2019-07-31] MEDS: ENOXAPARIN SOD INJ 60 MG/0.6 ML SYR SC SCH ×2 (05:46→17:17)
[2019-07-31] MEDS: LEVOTHYROXINE SODIUM 75 MCG TAB PO SCH (05:49)
[2019-07-31 06:08] LABS: ANION GAP 10.6 mmol/L (8-16); BLOOD UREA NITROGEN 6 mg/dL (7-26); BUN/CREATININE RATIO 10 (6-25); CALCIUM 8.4 mg/dL (8.4-10.2); CARBON DIOXIDE 17 mmol/L (22-29); CHLORIDE 114 mmol/L (98-107); CREATININE, SERUM 0.62 mg/dL (0.57-1.11); EST GLOMERULAR FILTRATION RATE > 60 ML/MIN (60-); GLUCOSE 93 mg/dL (74-118); POTASSIUM 4.6 mmol/L (3.5-5.1); SODIUM 137 mmol/L (136-145)
[2019-07-31] MEDS: ALBUTEROL SULF 0.083% NEB SOLN 3 ML NEB NEB SCH ×3 (07:06→20:00)
[2019-07-31] MEDS: DOCUSATE SODIUM 100 MG CAP PO SCH ×2 (09:00→17:16)
[2019-07-31] MEDS: PENTOXIFYLLINE 400 MG TAB CR PO SCH ×3 (09:38→17:16)
[2019-07-31] MEDS: FAMOTIDINE 20 MG TAB PO SCH ×2 (09:38→17:34)
[2019-07-31] MEDS: ATORVASTATIN 10 MG TAB PO SCH (09:38)
[2019-07-31] MEDS: PREDNISONE 10 MG TAB PO SCH (09:38)
[2019-07-31] MEDS: NIFEDIPINE CR 30 MG TAB PO SCH (09:39)
[2019-07-31] MEDS: ASCORBIC ACID 500 MG TAB PO SCH ×2 (09:39→17:00)
[2019-07-31] MEDS: METOPROLOL TARTRATE 25 MG TAB PO SCH ×2 (09:40→17:17)
[2019-08-01] VITALS (7 sets, daily range): BP systolic 114–171; BP diastolic 65–98
[2019-08-01] MEDS: ENOXAPARIN SOD INJ 60 MG/0.6 ML SYR SC SCH (04:09)
[2019-08-01] MEDS: NYSTATIN SUSPENSION 5 ML UDC PO SCH ×3 (05:00→13:00)
[2019-08-01] MEDS: LEVOTHYROXINE SODIUM 75 MCG TAB PO SCH (06:27)
[2019-08-01] MEDS: ALBUTEROL SULF 0.083% NEB SOLN 3 ML NEB NEB SCH ×2 (06:50→12:15)
--- NOTE | 2019-08-01 07:26 | NUR ---
Received patient, lying in bed with eyes open. Respiration even and unlabored without SOB.Lobo light in reach.
[2019-08-01] MEDS: DOCUSATE SODIUM 100 MG CAP PO SCH ×2 (09:55→16:47)
[2019-08-01] MEDS: FAMOTIDINE 20 MG TAB PO SCH ×2 (09:55→16:47)
[2019-08-01] MEDS: ATORVASTATIN 10 MG TAB PO SCH (09:55)
[2019-08-01] MEDS: NIFEDIPINE CR 30 MG TAB PO SCH (09:56)
[2019-08-01] MEDS: PENTOXIFYLLINE 400 MG TAB CR PO SCH ×2 (09:56→16:47)
[2019-08-01] MEDS: ASCORBIC ACID 500 MG TAB PO SCH ×2 (09:56→16:47)
[2019-08-01] MEDS: METOPROLOL TARTRATE 25 MG TAB PO SCH ×2 (09:56→16:48)
--- NOTE | 2019-08-01 10:15 | Discharge Summary ---
PRIMARY CARE PHYSICIAN: Dr. Edgard Ponce MD CONSULTANTS: 1. Dr. William Berkowitz. 2. Dr. Edis Skinner. 3. Dr. Tyron Wright. 4. Dr. Seth Shaw. FINAL DIAGNOSES: 1. Status post toxic encephalopathy secondary to urinary tract infection associated with Escherichia coli sepsis and bacteremia. 2. Right pulmonary artery embolism associated with right heart strain. The patient is on full anticoagulant therapy. 3. Descending thoracic aortic mural thrombus. 4. Severe rheumatoid arthritis with chronic progressive medical debility. 5. Silent aspiration. 6. Urinary tract infection. 7. Electrolyte disorder corrected. SUMMARY: The patient is a 79-year-old female, came to the hospital with severe infection, sepsis, altered mental status, hypotensive. The patient with sepsis and shock with bacteremia due to urinary tract infection. E. coli subsequently grew out in blood culture. The patient was given antibiotics IV and subsequently complete the course of her treatment. The patient was stable. Workup, however, showed that the patient has descending aortic mural thrombus, but CTA of the chest showed that she has pulmonary embolism as well. The patient was given Lovenox full dosing treatment. The patient will discharge with Eliquis 5 mg twice a day. The patient is also with severe rheumatoid arthritis, basically bed bound, debilitated and require assistance with ADL care. The patient also has silent aspiration due to her progressive decline. Her electrolytes corrected. The patient also with E. coli bacteremia. Her blood work now is stable. Her potassium is normalized with replacement. Sodium is 137, potassium 4.6, chloride 114, bicarb 17, BUN is 6, creatinine 0.5, glucose 93. WBC 7.5, hemoglobin 11.5, hematocrit 35.9, platelets 207. AST 40, ALT 38, alkaline phosphatase 111, total bilirubin 0.7. The patient is stable. She will be transferred to [facility] today. Medication reconciliation is done. The patient is stable. She will continue with treatment. She will probably need skilled nursing care and placement in bridge to skilled nursing care, jail care. MD ALYCE Farris/ESME /[id number]
[2019-08-01] MEDS ORDERED: ONDANSETRON HCL 4 MG ORAL DISINTEGRATING TAB PO PRN (10:45)
--- NOTE | 2019-08-01 12:28 | NUR ---
I attempted to perform the bedside PFT test. The patient was somewhat confused and unable to follow the basic commands needed to perform the test.
--- NOTE | 2019-08-01 13:53 | NUR ---
WAITING ON AUTH FOR PT TO GO TO SNF, WILL RETAIN INFORMATION FOR WHEN GET AUTH BUT HAVE TO HOLD UNTIL ABLE TO OBTAIN.
--- NOTE | 2019-08-01 14:49 | NUR ---
Called and left Dr. Giles a voice message to inform him that the patient will not transfer today to [facility] due to us waiting on authorization for a bed.
--- NOTE | 2019-08-01 15:26 | Progress Note ---
DATE: 08/01/2019 SUBJECTIVE: Ms. Dela Cruz is stable. No new complaints. REVIEW OF SYSTEMS: HEENT: Negative. PULMONARY: Negative. PHYSICAL EXAMINATION: GENERAL: She is currently alert. VITAL SIGNS: Stable. HEENT: She is not icteric. NECK: Supple. CHEST: Clear. HEART: S1 and S2. ABDOMEN: Soft. Bowel sounds present. No tenderness. EXTREMITIES: No edema. SKIN: No rash. IMPRESSION: 1. The patient with status post toxic encephalopathy, recent urinary tract infection with Escherichia coli sepsis and bacteremia. To finish 14 days of antibiotic. 2. Right side heart failure. 3. Right pulmonary artery embolism associated with right heart strain. 4. Descending thoracic aortic mural thrombosis. 5. Severe rheumatoid arthritis with progression. Discussed with the medical team. Plan was discussed with the discharge planning team. Reviewed laboratory data. Discussed with all medical team. MD JORDON Arciniega/ESME /[id number]
--- NOTE | 2019-08-01 15:36 | NUR ---
GOT CALL FROM FACILITY PT APPROVED LET NURSE KNOW TO PROCEED WITH CALLING REPORT AND TRANSFERRING PT.
--- NOTE | 2019-08-01 15:38 | NUR ---
CUSTODIAL FACILITY DISCHARGE INFORMATION PATIENT HAS BEEN ACCEPTED TO: [facility] NAME: [facility] ADDRESS: [address] , [place] [address] ACCEPTING MD: DR NOVAK ROOM: 42A NURSE CALL REPORT TO: IMM SIGNED AND OBTAINED (if applicable): CALLED FAMILY AND EDUCATED VIA TELEPHONE SOHAILERIN TADEOCHERYL [phone] THE FOLLOWING DOCUMENTS MUST ACCOMPANY PATIENT FOR TRANSFER: COPIED CHART: CLINICALS IN PACKET AND PASRR.
--- NOTE | 2019-08-01 17:40 | NUR ---
Discontinue right PICC as ordered. Catheter intact in 34 cm in length. No bleeding noted. Occlusive dressing in placed.
--- NOTE | 2019-08-01 17:55 | NUR ---
Patient transported via stretcher by EMS transferring to [facility]. Respiration even and unlabored without SOB. oO2 3L applied. Transfer packet given to EMS. All personal belongings are with the patient. Report was given to nurse White at [facility] around 1640.
--- NOTE | 2019-08-01 18:21 | NUR ---
Courtesy call to the patient's son Pradip is placed. Voice mailbox is full. Unable to leave voicemail
[2019-08-02] MEDS ORDERED: PREDNISONE 10 MG TAB PO SCH (09:00)
[2019-08-02] MEDS ORDERED: PREDNISONE 5 MG TAB PO SCH (09:00)
== END 2019-08-01 17:55 | DRG 871 ==
LOC: ER 19:21 → ERHOLD 22:49 → MED/SURG3 07-17 15:53 → IMCU 07-17 17:12 → MED/SURG3 07-20 00:48
PROVIDERS: ADMIT Internal Medicine; ATTEND Internal Medicine
PROC: 02HV33Z Insertion of Infusion Device into Superior Vena Cava, Percutaneous Approach (ICD-10-PCS; principal; 2019-07-17)
PROC: B548ZZA Ultrasonography of Superior Vena Cava, Guidance (ICD-10-PCS; 2019-07-17)
DX: A41.51 Sepsis due to Escherichia coli [E. coli] (principal); G92 Toxic encephalopathy; I26.99 Other pulmonary embolism without acute cor pulmonale; N10 Acute pyelonephritis; N17.9 Acute kidney failure, unspecified; J96.11 Chronic respiratory failure with hypoxia; E44.0 Moderate protein-calorie malnutrition; R65.20 Severe sepsis without septic shock; R07.9 Chest pain, unspecified; R53.1 Weakness; E86.0 Dehydration; E87.6 Hypokalemia; E83.41 Hypermagnesemia; R73.9 Hyperglycemia, unspecified; E03.9 Hypothyroidism, unspecified; F32.9 Major depressive disorder, single episode, unspecified; Z88.0 Allergy status to penicillin; M19.90 Unspecified osteoarthritis, unspecified site; Z79.52 Long term (current) use of systemic steroids; K21.9 Gastro-esophageal reflux disease without esophagitis; Z82.49 Family history of ischemic heart disease and other diseases of the circulatory system; Z83.3 Family history of diabetes mellitus; B96.20 Unspecified Escherichia coli [E. coli] as the cause of diseases classified elsewhere; R53.81 Other malaise; I51.3 Intracardiac thrombosis, not elsewhere classified; I50.810 Right heart failure, unspecified; R13.10 Dysphagia, unspecified; M06.9 Rheumatoid arthritis, unspecified; J84.89 Other specified interstitial pulmonary diseases; Z99.81 Dependence on supplemental oxygen; R11.0 Nausea; Z91.14 Patient's other noncompliance with medication regimen; Z68.23 Body mass index [BMI] 23.0-23.9, adult
CPT/HCPCS: 36415; 36569; 36600; 71045; 71275; 74177; 74230; 80048; 80053; 81001; 82150; 82550; 82553; 82805; 82948; 83036; 83605; 83690; 83735; 83880; 84100; 84145; 84443; 84484; 85025; 85610; 85730; 87040; 87071; 87086; 87186; 87205; 93005; 93306; 94640; 94660; 97139; 99284; J0360; J0456; J0692; J0696; J1650; J1940; J2405; J2920; J3475; J3480; J7030; J7050; J7512; Q9967

== ENCOUNTER 2019-09-28 14:17 | Inpatient (IN) | payer MEDICARE ==
[~2019-09-28] VITALS: Ht 152.4 cm; Wt 58.1 kg
[2019-09-28] MEDS ORDERED: SODIUM CHLORIDE 0.9% 1000ML 2,000 ML IV ONE (15:45)
[2019-09-28] MEDS ORDERED: NALOXONE HCL INJ 0.4 MG/ML AMP IV ONE (15:45)
[2019-09-28 15:47] LABS: BASOPHILS # (AUTO) 0.1 (0.0-0.1); BASOPHILS % 1.2 % (0.0-1.0); EOSINOPHILS # (AUTO) 0.4 (0.0-0.4); EOSINOPHILS % 3.9 % (0.0-6.0); HEMATOCRIT 42.5 % (34.2-44.1); HEMOGLOBIN 13.5 g/dL (12.0-16.0); LYMPHOCYTES # (AUTO) 2.7 (1.0-3.2); LYMPHOCYTES % 26.4 % (18.0-39.1); MEAN CORPUSCULAR HEMOGLOBIN 31.1 pg (28-32); MEAN CORPUSCULAR HGB CONC 31.8 g/dL (31-35); MEAN CORPUSCULAR VOLUME 97.9 fL (81-99); MONOCYTES # (AUTO) 0.7 (0.2-0.8); MONOCYTES % 6.4 % (4.4-11.3); NEUTROPHILS # (AUTO) 6.4 (2.1-6.9); NEUTROPHILS % 61.7 % (38.7-80.0); PLATELET COUNT 236 x10e3/uL (140-360); RED BLOOD COUNT 4.34 x10e6/uL (3.6-5.1); RED CELL DISTRIBUTION WIDTH 15.6 % (11.7-14.4)
[2019-09-28 15:52] LABS: INR 0.99; PROTHROMBIN TIME 13.6 seconds (11.9-14.5)
[2019-09-28 15:53] LABS: PARTIAL THROMBOPLASTIN TIME 27.8 seconds (23.8-35.5)
[2019-09-28 16:03] LABS: ALANINE AMINOTRANSFERASE 28 IU/L (0-55); ALBUMIN 2.6 g/dL (3.5-5.0); ALBUMIN/GLOBULIN RATIO 0.7 (0.8-2.0); ALKALINE PHOSPHATASE 139 IU/L (40-150); ANION GAP 14.9 mmol/L (8-16); BLOOD UREA NITROGEN 13 mg/dL (7-26); BUN/CREATININE RATIO 17 (6-25); CALCIUM 8.5 mg/dL (8.4-10.2); CARBON DIOXIDE 21 mmol/L (22-29); CHLORIDE 108 mmol/L (98-107); CREATININE, SERUM 0.76 mg/dL (0.57-1.11); EST GLOMERULAR FILTRATION RATE > 60 ML/MIN (60-); GLUCOSE 109 mg/dL (74-118); POTASSIUM 3.9 mmol/L (3.5-5.1); SODIUM 140 mmol/L (136-145)
[2019-09-28 16:14] LABS: B-TYPE NATRIURETIC PEPTIDE2 2659.5 pg/mL (0-100)
[2019-09-28 16:22] LABS: BILIRUBIN,URINE NEGATIVE (NEGATIVE); CLARITY,URINE SL CLOUDY (CLEAR); COLOR,URINE YELLOW (YELLOW); KETONES,URINE NEGATIVE (NEGATIVE); LEUKOCYTE ESTERASE ,URINE NEGATIVE (NEGATIVE); NITRITE,URINE NEGATIVE (NEGATIVE); PROTEIN,URINE DIPSTICK 2+ (NEGATIVE); URINE UROBILINOGEN 0.2 mg/dL (0.2 - 1)
[2019-09-28 16:32] LABS: THYROID STIMULATING HORMONE 1.469 uIU/mL (0.350-4.940)
[2019-09-28 16:36] LABS: AMPHETAMINES SCREEN,URINE NEGATIVE (NEGATIVE); BENZODIAZEPINES SCREEN,URINE NEGATIVE (NEGATIVE); PHENCYCLIDINE SCREEN,URINE NEGATIVE (NEGATIVE)
[2019-09-28 16:37] LABS: BACTERIA,URINE FEW /HPF; EPITHELIAL CELLS,URINE FEW /LPF; RBC,URINE 0-5 /HPF (0-5)
[2019-09-28 16:51] LABS: ABG BASE EXCESS 17.2 mmol/L (-2 - 3); ABG HCO3 -7 mmol/L (23-28); ABG PCO2 26 mmHg (41-51); ABG PH 7.43 (7.31-7.41); ABG PO2 70 mmHg (80-105)
[2019-09-28] MEDS ORDERED: LEVOTHYROXINE75 MCG PO (16:54)
[2019-09-28] MEDS ORDERED: ATORVASTATIN CA40 MG PO (16:54)
[2019-09-28] MEDS ORDERED: LOSARTAN POTASS25 MG PO (16:54)
[2019-09-28] MEDS ORDERED: OMEPRAZOLE20 MG PO (16:54)
[2019-09-28] MEDS ORDERED: LOPRESSOR25 MG PO (16:54)
[2019-09-28] MEDS ORDERED: FAMOTIDINE40 MG PO (16:54)
[2019-09-28] MEDS ORDERED: COLACE100 MG PO (16:54)
--- NOTE | 2019-09-28 16:55 | Diagnostic Imaging Report ---
EXAMINATION: CHEST SINGLE (PORTABLE) INDICATION: Shortness of breath COMPARISON: Chest CTA of 07/25/2019 FINDINGS: LINES/TUBES:None LUNGS:The lungs volumes are low. There is perihilar fullness and indistinctness of the pulmonary vasculature. PLEURA:No pleural effusion or pneumothorax. MEDIASTINUM:Unchanged mild cardiomegaly. Atherosclerotic calcifications of the thoracic aorta. BONES/SOFT TISSUES:No acute osseous injury. ABDOMEN:No free air under the diaphragm. IMPRESSION: Low lung volumes, mild cardiomegaly, and mild pulmonary edema. Signed by: Taye Connelly MD on 09/28/2019 4:52 PM
[2019-09-28] MEDS ORDERED: ONDANSETRON HCL INJ 2MG/ML 2ML 2 MG/ML VIAL IV PRN (17:15)
[2019-09-28] MEDS ORDERED: LEVOFLOXACIN 750MG/D5W 150ML 150 ML IV ONE (17:15)
[2019-09-28] MEDS ORDERED: DEXTROSE 5%/0.9% SOD CHL 1,000 ML IV ONE (17:15)
[2019-09-28] MEDS ORDERED: SODIUM CHLORIDE FLUSH 10 ML SYR INJ PRN (17:15)
[2019-09-28] MEDS ORDERED: ASPIRIN 81 MG CHEW TAB PO ONE (17:15)
--- NOTE | 2019-09-28 18:02 | Diagnostic Imaging Report ---
CT BRAIN WO HISTORY: 79-year-old female presenting with altered mental status. COMPARISON: CT brain without contrast 02/09/2019, 10/16/2018 TECHNIQUE: Noncontrast axial scans were obtained from skull base to the vertex. Coronal and sagittal reconstructions obtained from the axial data. One or more of the following dose reduction techniques were used: Automated exposure control, adjustment of the mA and/or kV according to patient size, and/or utilization of iterative reconstruction technique. DISCUSSION: Scalp/Skull: Unremarkable. Brain sulci: Mildly prominent. Ventricles: Mildly prominent. No hydrocephalus. Extra-axial spaces: No masses or fluid collections. Parenchyma: Multiple confluent hypodense foci in the supratentorial white matter are consistent with chronic microvascular ischemic changes. No mass, hemorrhage, or large vascular territory acute infarct. No evidence of edema, mass effect or herniation. Dural sinuses: No abnormal densities. Intracranial arteries: Atherosclerosis within the bilateral intradural vertebral arteries and carotid siphons. Sellar/Suprasellar region: Intact. Bones: Intact. Hyperostosis of the frontal calvarium. Incidental findings: Partial mucosal thickening of the bilateral maxillary sinuses left greater than right and within the anterior ethmoid air cells. Maxillary sinus mucosal thickening is new from February 2019. Bilateral ocular lens replacement. IMPRESSION: No acute intracranial abnormalities. Chronic findings: Moderate chronic microvascular ischemic changes. Mild generalized cerebral volume loss. This preliminary report was issued by Dr. Damien Cano M.D. neuroradiology fellow at 1800 hours on 09/26/2019. Signed by: Dr. Gaudencio Lay M.D. on 09/28/2019 7:45 PM
[2019-09-28] MEDS ORDERED: DEXTROSE 5% 1,000 ML IV ONE (19:13)
[2019-09-28] MEDS: APIXABAN 5 MG TABLET PO SCH (19:16)
[2019-09-28] MEDS: SODIUM CHLORIDE 0.9% 1000ML 1,000 ML IV SCH (19:16)
[2019-09-28] MEDS: ASPIRIN 81 MG CHEW TAB PO SCH (19:17)
[2019-09-28] MEDS: CARVEDILOL 12.5 MG TAB PO SCH (19:17)
--- NOTE | 2019-09-28 20:37 | Consultation ---
DATE OF CONSULTATION: 09/28/2019 Cardiology Consultation CONSULTING PHYSICIAN: Jose Rodriguez MD, Interventional Cardiology. REASON FOR CONSULTATION: Failure to thrive and skin changes. HISTORY OF PRESENT ILLNESS: A 79-year-old woman with severe rheumatoid arthritis, recent discharge from this institution to half-way facility after she was found to have a urinary tract infection with sepsis, pulmonary embolism, and atrial mural thrombus, for which she was initiated on dialysis. She presents from home with deconditioning and skin mottling to lower extremity. She denies any chest discomfort or shortness of breath. She denies any leg discomfort, but feels overall weak. Family is at bedtime. The patient was not on anticoagulation per family report. REVIEW OF SYSTEMS: A 12-system review is negative except for as noted above. PAST MEDICAL HISTORY: As per HPI. SOCIAL HISTORY: Negative x3. FAMILY HISTORY: Noncontributory. PHYSICAL EXAMINATION: VITAL SIGNS: Respiratory rate 18, O2 saturation 97%, blood pressure 158/92, heart rate 78, and BMI 25. GENERAL: In no acute distress. Alert. Chronically ill-appearing. NECK: No JVD. CHEST: Clear to auscultation. CARDIOVASCULAR: Regular rate and rhythm. Normal S1, S2. ABDOMEN: Soft. Bowel sounds positive. EXTREMITIES: With no edema. Cold distal extremities, diminished pulses bilaterally to both dorsalis pedis and posterior tibialis, radial artery. STUDIES: Reviewed. Creatinine 0.7, hemoglobin 13.5, white blood cell 10.3, and platelets 236. Normal transaminases. ASSESSMENT AND PLAN: Pericardial disease with aortic mural thrombus, history of pulmonary embolism, recent urinary tract infection, rheumatoid arthritis, uncontrolled hypertension. RECOMMEND: 1. Resume Eliquis 5 mg twice a day. 2. IV fluid challenge. 3. Arterial Dopplers reviewed, please see report. 4. Evaluation for recurrent infection advised. 5. Start Carvedilol and obtain echocardiogram. 6. Overall, guarded prognosis. 7. We will follow closely with you. Jose Rodriguez MD AFV/MODL /[id number]
[2019-09-28 23:00] VITALS: BP 145/92
[2019-09-29] VITALS (7 sets, daily range): BP systolic 122–152; BP diastolic 76–102
[2019-09-29] MEDS: SODIUM CHLORIDE 0.9% 1000ML 1,000 ML IV SCH (05:40)
[2019-09-29 06:28] LABS: BASOPHILS # (AUTO) 0.1 (0.0-0.1); BASOPHILS % 1.6 % (0.0-1.0); EOSINOPHILS # (AUTO) 0.4 (0.0-0.4); EOSINOPHILS % 4.9 % (0.0-6.0); HEMATOCRIT 42.7 % (34.2-44.1); HEMOGLOBIN 12.9 g/dL (12.0-16.0); LYMPHOCYTES % 25.8 % (18.0-39.1); MEAN CORPUSCULAR HEMOGLOBIN 30.7 pg (28-32); MEAN CORPUSCULAR HGB CONC 30.2 g/dL (31-35); MEAN CORPUSCULAR VOLUME 101.7 fL (81-99); MONOCYTES # (AUTO) 0.7 (0.2-0.8); NEUTROPHILS # (AUTO) 4.4 (2.1-6.9); NEUTROPHILS % 58.3 % (38.7-80.0); PLATELET COUNT 201 x10e3/uL (140-360); RED CELL DISTRIBUTION WIDTH 15.8 % (11.7-14.4)
[2019-09-29] MEDS ORDERED: ASPIRIN 81 MG CHEW TAB PO ONE (06:30)
[2019-09-29 06:48] LABS: ALANINE AMINOTRANSFERASE 39 IU/L (0-55); ALBUMIN 2.2 g/dL (3.5-5.0); ALBUMIN/GLOBULIN RATIO 0.6 (0.8-2.0); ALKALINE PHOSPHATASE 134 IU/L (40-150); ANION GAP 13.6 mmol/L (8-16); BLOOD UREA NITROGEN 11 mg/dL (7-26); BUN/CREATININE RATIO 15 (6-25); CALCIUM 7.9 mg/dL (8.4-10.2); CARBON DIOXIDE 17 mmol/L (22-29); CHLORIDE 115 mmol/L (98-107); CREATINE KINASE 22 IU/L (29-168); CREATININE, SERUM 0.72 mg/dL (0.57-1.11); EST GLOMERULAR FILTRATION RATE > 60 ML/MIN (60-); GLUCOSE 75 mg/dL (74-118); POTASSIUM 3.6 mmol/L (3.5-5.1); SODIUM 142 mmol/L (136-145)
--- NOTE | 2019-09-29 07:15 | NUR ---
Pt received resting in bed. Alert and oriented to person. Oriented to staff and surroundings. Advised to press call toro if help needed. Emotional support given. Call toro within reach. Will monitor
[2019-09-29] MEDS: ASPIRIN 81 MG CHEW TAB PO SCH (09:26)
[2019-09-29] MEDS: CARVEDILOL 12.5 MG TAB PO SCH (09:26)
[2019-09-29] MEDS: APIXABAN 5 MG TABLET PO SCH ×2 (09:26→17:42)
--- NOTE | 2019-09-29 09:59 | NUR ---
Pt had small smear of BM. Sacral stage II noted. Venelex applied, and covered with foam dressing. Turned and repositioned. Heel pads applied. Call toro within reach. Will monitor
--- NOTE | 2019-09-29 11:13 | NUR ---
"TIRED AND SLEEPY", COULD NOT DO DPA AT THIS TIME
--- NOTE | 2019-09-29 11:59 | NUR ---
Nutrition Screen Note RD Recommendation for Physician: Advance diet as tolerated Plan of Care: RD following, monitoring for tolerance and adequacy Nutrition reason for involvement: Nutrition Risk Trigger - MST Primary Diagnose(s): AMS unspecified PMH: Dementia, heart failure, HTN, skin graft, hypothyroid, end stage lung disease Ht:60 in Wt:128lb BMI:25 kg/m2 IBW:100lb +/-10% RD Assessment: (09/29/2019) Chart reviewed. Labs and meds reviewed. Initial encounter with patient. Pt was not able to provide a nutrition Hx at the time of visit. Nurse provided nutrition Hx. Pt is well known from previous admits. Pt needs to be fed, No known food allergies. Poor to fair PO intake of clears. Pt ate gelatin and drank juice. Pt has maintained weight. No N,V,D, nor any difficulty chewing or swallowing. Current Diet: Clear liquid diet Malnutrition Evaluation (09/29/2019) The patient does not meet criteria for a specified degree of malnutrition at this time. Will re-evaluate at follow-up as appropriate. Diet Education Needs Assessment: Diet education not indicated. Nutrition Care Level:Moderate Signed: Pietro Mix RD, LD, [facility]
[2019-09-29] MEDS ORDERED: SODIUM CHLORIDE 0.9% 1000ML 1,000 ML ONE (13:48)
--- NOTE | 2019-09-29 13:52 | Diagnostic Imaging Report ---
EXAMINATION: CHEST SINGLE (PORTABLE) INDICATION: CHF COMPARISON: 09/28/2019. FINDINGS: LINES/TUBES:None LUNGS:The lungs volumes are low. Pulmonary venous congestion and perihilar opacities are unchanged from prior exam compatible with pulmonary edema. PLEURA:Obliteration of left costophrenic angle compatible with a small effusion, unchanged. MEDIASTINUM:Unchanged mild cardiomegaly. Atherosclerotic calcifications of the thoracic aorta. BONES/SOFT TISSUES:No acute osseous injury. ABDOMEN:No free air under the diaphragm. IMPRESSION: Stable mild pulmonary edema. Stable left pleural effusion. Signed by: Ceferino Schumacher MD on 09/29/2019 7:36 AM
[2019-09-29 15:20] LABS: CREATINE KINASE MB 2.1 ng/mL (0-5.0)
--- NOTE | 2019-09-29 15:35 | History and Physical ---
PRIMARY CARE PHYSICIAN: Dr. Edgard Ponce. CHIEF COMPLAINT: Altered mental status, confusion for the past few weeks. HISTORY: The patient is a 69-year-old female, chronically ill with rheumatoid arthritis. The patient's last admission was in July where she was subsequently discharged home. She was hospitalized from July 16, 2019, to August 01, 2019. At that time, the patient with toxic encephalopathy secondary to urinary tract infection. She has also had right pulmonary artery embolism associated with right heart strain. She was on Eliquis. On top of that, she was also having silent aspiration. The patient was very ill upon she was hospitalized, subsequently discharged home. She did okay until recently. The patient came brought in by her daughter stating that the patient was more confused, lethargic, and short of breath. The patient was breathing much faster two weeks ago and worsening did not improve. The patient in the hospital had a chest x-ray one view, showed possible vascular congestion. She did receive some IV fluid boluses. The patient is stable. She is awake and alert . She is, however, seems very weak. She is having difficulty moving all extremities. The patient seen significantly debilitated. Baseline bed-bound for ADL care. PAST MEDICAL HISTORY: Advanced rheumatoid arthritis with significant both hand deformity came with the lower extremity. Pulmonary embolism DVT. Chronic medical decline. Osteoarthritis, mild dementia, dyslipidemia, hypothyroidism, major depression PAST SURGICAL HISTORY: The patient has skin muscle graft to the lower extremity. SOCIAL HISTORY: The patient does not smoke or use alcohol. No recreational drugs. ALLERGIES: PENICILLIN. HOME MEDICATIONS: List is reviewed includin. Lipitor. 2. Colace. 3. Pepcid. 4. Eliquis. 5. Levothyroxine. 6. Pepcid. 7. Losartan. 8. Metoprolol tartrate. 9. Omeprazole. PHYSICAL EXAMINATION: VITAL SIGNS: Temperature is 98, blood pressure 122/76, pulse rate 72, respirations 18. GENERAL: The patient is not in acute distress. She seemed to be very weak, however. HEENT: Normocephalic and atraumatic. Pupils reactive. Anicteric. NECK: Supple grossly. PULMONARY: Diminished breath sounds bilaterally. CARDIOVASCULAR: Regular rate and rhythm. ABDOMEN: Soft, nondistended, nontender. EXTREMITIES: Severe deformity secondary to rheumatoid arthritis. NEUROLOGIC: Very weak in general. The patient is awake, alert times 2 to 3 weeks, but the patient able to answer questions. LABORATORY DATA: WBC 7.6, hemoglobin 12.9, hematocrit 42.7, platelets 201. Toxicology is negative. Urine, 2+ protein, but otherwise negative. INR is 0.19. Chemistries: Sodium is 142, potassium 3.6, chloride 115, bicarb 17, BUN 11, creatinine 0.7, and glucose is 75. Lactic acid level was 1.9. AST 41, ALT 39, creatine kinase 22, albumin is 2.2. BNP is 2659. IMPRESSION: 1. Generalized weakness, most likely progressive medical decline from chronic medical problem. 2. Fluid overload secondary to most likely debility, possible early diastolic dysfunction, congestive heart failure. 3. Severe rheumatoid arthritis with significant joint deformity. 4. Possible aspiration pneumonia. 5. Possible worsening of the pulmonary embolism since the patient was on Eliquis. Question of whether she is compliant with medication. INR is 0.99. 6. Severe protein calorie deficit malnutrition, most likely from diet. PLAN: CT of the chest with contrast. We will need to see how her pulmonary embolism has progressed. Continue with home medication, insulin, and Eliquis. Start the patient empirically with meropenem for now. Stop IV fluids. Aspiration precaution, skin care . We will monitor the patient closely. The patient is otherwise stable at this time. MD ALYCE Farris/MODL /[id number]
--- NOTE | 2019-09-29 17:30 | NUR ---
Spoke to pt's son who stated that "unless my mother can walk and talk I cannot take care of her at home." Son stated that she would need around the clock care, and he works shearer printed circuit [employer], and his back hurts. Pt stated that his cannot help because she works too. Will order case management consult
[2019-09-29] MEDS: MEROPENEM 500MG/ NS 50ML 50 ML IV SCH ×2 (17:42→22:19)
[2019-09-29] MEDS: METOPROLOL TARTRATE 25 MG TAB PO SCH (17:42)
[2019-09-29] MEDS ORDERED: IOPAMIDOL 370 MG/ML 200 ML INFUS..BTL INJ ONE (20:19)
[2019-09-29] MEDS ORDERED: SODIUM CHLORIDE 0.9% 50ML 100 ML ONE (20:19)
[2019-09-29] MEDS ORDERED: SODIUM CHLORIDE 0.9% 50ML 50 ML ONE (20:54)
--- NOTE | 2019-09-29 21:07 | Diagnostic Imaging Report ---
EXAM: CT Chest WITH contrast 09/29/2019 1:33 PM INDICATION: SOB/HX PE/ASPIRATION COMPARISON: Chest CT 07/25/2019, 06/05/2019 TECHNIQUE: Chest was scanned utilizing a multidetector helical scanner from the lung apex through the level of the adrenal glands with administration of IV contrast. Coronal and sagittal reformations were obtained. Routine protocol was performed. IV CONTRAST: 100 mL of Omnipaque 300 COMPLICATIONS: None RADIATION DOSE: Total DLP: 451 mGy*cm Estimated effective dose: (DLP x 0.014 x size factor) mSv CTDIvol has been reviewed. It is below the limits set by the Radiation Protocol Committee (RPC). Dose modulation, iterative reconstruction, and/or weight based adjustment of the mA/kV was utilized to reduce the radiation dose to as low as reasonably achievable. FINDINGS: LINES/ TUBES: None. LUNGS AND AIRWAYS: Increased size of a 4.1 cm mural based lobular soft tissue dense mass within the right main pulmonary artery, was 2.6 cm on 07/25/2019. Interlobular septal thickening in the lower lungs. Bibasilar atelectasis. Prominent pulmonary vasculature. Airways are normal. PLEURA: Small left and trace right pleural effusion. HEART AND MEDIASTINUM: The thyroid gland is normal. Increased size of a 4.1 cm masslike filling defect within the right main pulmonary artery, was 2.6 cm on 07/25/2019. Dilated right atrium and right ventricle, with reflux of contrast in hepatic veins and intrahepatic IVC. Main pulmonary artery dilated, 3.87 m in diameter. There are moderate atherosclerotic calcifications in the aorta. Aortic valve calcifications. Small pericardial effusion. Increased size of a few mediastinal and right hilar lymph nodes compared to 07/25/2019, seen best on series 2, examples include: -0.8 cm right upper paratracheal lymph node (image 35), was 0.6 cm. -1.6 cm right hilar lymph node (image 51), was 1 cm. -1 cm subcarinal lymph node (image 58), was 0.8 cm. -Slight increased prominence of aortopulmonary lymph nodes. UPPER ABDOMEN: Unremarkable. BONES: The visualized bony thorax is within normal limits. SOFT TISSUES: Unremarkable. IMPRESSION: 1. Increased size of a 4.1 cm mass within the right main pulmonary artery may represent an enlarging thrombus, although an enlarging neoplasm such as angiosarcoma is possible. Also there is increasing right hilar and mediastinal adenopathy. Recommend routine chest CT with venous phase contrast for further evaluation. No new pulmonary artery filling defects. 2. Mild cardiomegaly, pulmonary vascular congestion, and mild pulmonary interstitial edema with small left and trace right pleural effusions and bibasilar atelectasis. Findings of pulmonary hypertension. Signed by: Avery Campbell DO on 09/29/2019 9:03 PM
[2019-09-30] VITALS (8 sets, daily range): BP systolic 120–148; BP diastolic 80–109
--- NOTE | 2019-09-30 00:02 | Progress Note ---
DATE: 09/29/2019 Cardiology Progress Note SUBJECTIVE: No complaints. OBJECTIVE: VITAL SIGNS: Temperature 98.9, heart rate 72, respiratory rate 22, blood pressure 122/76, O2 saturation 96%. GENERAL: In no acute distress. Alert. NECK: No JVD. CHEST: Clear to auscultation. CARDIOVASCULAR: Regular rate and rhythm. Normal S1 and S2. Soft ejection murmur. ABDOMEN: Soft. Bowel sounds positive. EXTREMITIES: Trace edema. Severe contractures to hands and feet. Abnormal pedal pulses. Warm distal extremities. CARDIOVASCULAR MEDICATIONS: Reviewed. Eliquis 5 mg b.i.d., meropenem, Protonix, levothyroxine, metoprolol tartrate 25 mg b.i.d. STUDIES: Reviewed. Sodium 142, potassium 3.6, chloride 115, bicarbonate 17, BUN 11, creatinine 0.7, glucose 75. White blood cell 7.5, hemoglobin 12.8, platelets 201. INR 0.9, PT 13.6, PTT 27.8. AST 21, ALT 39, alkaline phosphatase 134, total bilirubin 0.5. ASSESSMENT AND PLAN: 1. A 79-year-old woman, who presents with failure to thrive, recent pulmonary embolism on echocardiogram reviewed on this admission with dilated RV, decreased RV function, now resumed anticoagulation with Eliquis. 2. Aortic mural thrombus. Resumed anticoagulation. 3. Rheumatoid arthritis. 4. History of urinary tract infections. 5. Metabolic acidosis. RECOMMENDATION: Continue current cardiovascular medications with particular emphasis to resume anticoagulation for treatment of thromboembolic pathology. Overall has guarded prognosis. Discussed with the patient and family members. MD HARMEET Welsh/ESME /[id number]
[2019-09-30] MEDS: MEROPENEM 500MG/ NS 50ML 50 ML IV SCH ×4 (05:46→23:53)
[2019-09-30] MEDS: LEVOTHYROXINE SODIUM 75 MCG TAB PO SCH (05:46)
[2019-09-30] MEDS: PANTOPRAZOLE SOD 40 MG TABEC PO SCH (07:47)
[2019-09-30] MEDS: APIXABAN 5 MG TABLET PO SCH (08:17)
[2019-09-30] MEDS: METOPROLOL TARTRATE 25 MG TAB PO SCH ×2 (08:18→18:30)
[2019-09-30] MEDS ORDERED: VANCOMYCIN 500MG/NS 0.9% 100ML 100 ML IV SCH (14:00)
[2019-09-30 14:30] LABS: INR 2.02; PARTIAL THROMBOPLASTIN TIME 38.3 seconds (23.8-35.5); PROTHROMBIN TIME 23.5 seconds (11.9-14.5)
[2019-09-30] MEDS: HEPARIN 25,000 UNIT 900 UNIT in DEXTROSE 5% 250ML 250 ML IV SCH (15:45)
[2019-09-30] MEDS ORDERED: HEPARIN SOD (PORCINE) 5,000 UNIT/ML VIAL IV ONE (16:00)
--- NOTE | 2019-09-30 16:00 | NUR ---
Called Dr. Pat Wright answering service to request consultgomez for call back.
[2019-09-30] MEDS: VANCOMYCIN 500MG/NS 0.9% 100ML 100 ML IV SCH (16:45)
[2019-09-30 17:08] LABS: BASOPHILS # (AUTO) 0.1 (0.0-0.1); BASOPHILS % 1.2 % (0.0-1.0); EOSINOPHILS # (AUTO) 0.1 (0.0-0.4); EOSINOPHILS % 0.7 % (0.0-6.0); HEMATOCRIT 43.6 % (34.2-44.1); HEMOGLOBIN 13.1 g/dL (12.0-16.0); LYMPHOCYTES # (AUTO) 1.7 (1.0-3.2); LYMPHOCYTES % 15.1 % (18.0-39.1); MEAN CORPUSCULAR HEMOGLOBIN 31.1 pg (28-32); MEAN CORPUSCULAR VOLUME 103.6 fL (81-99); MONOCYTES % 9.3 % (4.4-11.3); NEUTROPHILS # (AUTO) 8.2 (2.1-6.9); NEUTROPHILS % 73.3 % (38.7-80.0); PLATELET COUNT 230 x10e3/uL (140-360); RED BLOOD COUNT 4.21 x10e6/uL (3.6-5.1)
[2019-09-30 17:24] LABS: ANION GAP 19.6 mmol/L (8-16); CALCIUM 8.7 mg/dL (8.4-10.2); POTASSIUM 3.6 mmol/L (3.5-5.1)
[2019-09-30] MEDS ORDERED: ACETAMINOPHEN 325 MG TAB PO PRN (18:45)
--- NOTE | 2019-09-30 19:15 | Progress Note ---
DATE: 09/30/2019 Cardiology Progress Note SUBJECTIVE: Denies any chest pain or shortness of breath. OBJECTIVE: VITAL SIGNS: Temperature 98.2, heart rate 96, blood pressure 130/94, respiratory rate 18, O2 saturation 95%, BMI 24.9. GENERAL: In no acute distress, alert. NECK: No JVD. CHEST: Clear to auscultation. CARDIOVASCULAR: Regular rate and rhythm. Normal S1, S2. ABDOMEN: Soft. Bowel sounds positive. EXTREMITIES: Trace edema. MUSCULOSKELETAL: Deformities to hands and feet. CARDIOVASCULAR MEDICATIONS: Reviewed. Metoprolol tartrate 25 mg b.i.d., started on IV heparin. LABORATORY DATA: Studies reviewed. Sodium 142, potassium 3.6, chloride 117, bicarbonate 17, BUN 11, creatinine 0.7, glucose 75. White blood cell 7.5, hemoglobin 12.9, platelets 201. INR 2, PT 23.5, PTT 38.3. AST 41, ALT 39, alkaline phosphatase 134, total bilirubin 0.5. ASSESSMENT AND PLAN: A 79-year-old woman with rheumatoid arthritis, history of descending aortic mural thrombus/PAD and pulmonary embolism with right-sided heart strain presents with deteriorating condition, failure to thrive and discomfort to feet. Now Eliquis placed on hold. Heparin started. The patient seems to be noticing slight improvement in how she is feeling overall today. She is having increased appetite. Overall condition remains guarded. Continue heparin and assess after clinical improvement. MD HARMEET Welsh/ESME /[id number]
--- NOTE | 2019-09-30 19:44 | NUR ---
Called Dr. Chisholm/ Kyle left a message in voicemail made him aware of consult patient positive for PE, and pulmonary edema.
--- NOTE | 2019-09-30 19:50 | NUR ---
Called Dr. Giles made aware patient had delayed coughing after drinking thin liquids, patient on clear liquid diet, this nurse requested bedside speech evaluation, Dr. Giles does not need a speech evaluation patient needs to be on Mechanical Soft pureed diet with nectar liquids.
[2019-09-30] MEDS ORDERED: OXYMETAZOLINE HCL 0.05% NAS 1 SPRAY BTL PRN (20:30)
--- NOTE | 2019-09-30 21:06 | NUR ---
called and spoke to dr Giles, patient has nose bleed and she has heparin drip. the MD ordered nasal spray and PTT check now instead of at 21:45. blood sample sent awaiting for result and keep monitoring patient.
--- NOTE | 2019-09-30 22:51 | NUR ---
called and make dr Giles aware about the PTT result, will follow protocol to hold Heparin and re check the PTT in 6 hr.
[2019-10-01] VITALS (7 sets, daily range): BP systolic 98–111; BP diastolic 61–71
[2019-10-01] MEDS: HEPARIN 25,000 UNIT 900 UNIT in DEXTROSE 5% 250ML 250 ML IV SCH (00:11)
--- NOTE | 2019-10-01 00:13 | NUR ---
resume Heparin to 700 units/hr now ( 60 mins after the last PTT result) and will re check PTT in 6 hr.
[2019-10-01] MEDS: VANCOMYCIN 500MG/NS 0.9% 100ML 100 ML IV SCH ×3 (04:33→17:41)
[2019-10-01] MEDS: LEVOTHYROXINE SODIUM 75 MCG TAB PO SCH (05:49)
[2019-10-01] MEDS: PANTOPRAZOLE SOD 40 MG TABEC PO SCH ×2 (07:30→08:18)
[2019-10-01] MEDS: MEROPENEM 500MG/ NS 50ML 50 ML IV SCH ×2 (08:18→15:32)
[2019-10-01] MEDS: METOPROLOL TARTRATE 25 MG TAB PO SCH ×2 (08:35→17:00)
--- NOTE | 2019-10-01 09:00 | NUR ---
PTT RESULT FROM 0500 REPORTED AT 0800. ADJUSTED HEPARIN GTT PER PROTOCOL. HELD FOR 1 HOUR AND DECREASED TO 500 UNITS/HR
[2019-10-01] MEDS: CITRIC ACID/SODIUM CITRATE 30 ML UDC PO SCH ×2 (10:42→16:45)
--- NOTE | 2019-10-01 12:54 | Progress Note ---
DATE: 10/01/2019 Cardiology Progress Note SUBJECTIVE: Decreased appetite, tired today, generalized weakness. No specific complaints otherwise. OBJECTIVE: VITAL SIGNS: Temperature 97.4, heart rate 81, respiratory rate 30, blood pressure 100/61, and O2 saturation 95%. GENERAL: In no acute distress, alert. NECK: No JVD. CHEST: Clear to auscultation. CARDIOVASCULAR: Regular rate and rhythm. Normal S1, S2. ABDOMEN: Soft. Bowel sounds positive. EXTREMITIES: Contracted extremities. CARDIOVASCULAR MEDICATIONS: Reviewed. Metoprolol tartrate 25 mg b.i.d. and IV heparin. LABORATORY STUDIES: Reviewed. Creatinine 1. Hemoglobin 13.1, white blood cells 11.2, and platelets 230. INR 2.02. ASSESSMENT: A 79-year-old woman presents with aortic mural thrombus, pulmonary embolism with RV strain, rheumatoid arthritis, hypertension, and hypothyroidism. RECOMMENDATIONS: Continue anticoagulation. Overall, the patient continues to have [id number]. Consider PT and OT evaluation. Continue anticoagulation. Appreciate Pulmonary expertise. MD HARMEET Welsh/ESME /[id number]
--- NOTE | 2019-10-01 13:27 | NUR ---
ATTEMPTED TO FEED PATIENT BREAKFAST AND LUNCH. PATIENT LETHARGIC AND NOT ABLE TO STAY AWAKE ENOUGH TO SWALLOW SAFELY
--- NOTE | 2019-10-01 13:55 | NUR ---
PATIENT MORE ALERT. SHE WAS ABLE TO SWALLOW HER BICITRA
[2019-10-01] MEDS: HYDROCORTISONE SOD SUCCINATE 100 MG VIAL IV SCH ×2 (14:26→21:20)
--- NOTE | 2019-10-01 15:42 | NUR ---
CONSULT FOR 79 YO FEMALE HX AMS PRESSURE ULCERATION GEMA 9 ON STRICT PUP AND ALTERNATING PRESSURE MATTRESS PATIENT PRESENTS WITH 5SMT2HF HEALING STAGE 2 AREA ON RIGHT BUTTOCKS WITH MACERATION NOTED RECOMMENDATIONS: NURSING TO APPLY DAILY VENELEX OINTMENT TO HEALING STAGE 2 RIGHT BUTTOCKS NURSING TO CONTINUE TO MAINTAIN STRICT PUP STATUS AND INTERVENTIONS NURSING TO CONTINUE TO MAINTAIN ALTERNATING PRESSURE SURFACE NURSING TO CONTINUE TO MAINTAIN BILATERAL HEEL PROTECTORS AND PILLOW SUSPENSION WHEN IN BED NURSING TO CONTINUE TO ASSIST PATIENT TO SIT FOR MEALS AND MUCH TOLERATED Addendum: 10/01/19 at 1548 by Jasson Aragon RN Amended: Links added.
--- NOTE | 2019-10-01 16:20 | NUR ---
NOTIFIED DR JI OF LACTIC ACID 2.6
[2019-10-01] MEDS: ALBUTEROL SULF 0.083% NEB SOLN 3 ML NEB NEB SCH ×2 (16:24→23:15)
--- NOTE | 2019-10-01 16:52 | Consultation ---
DATE OF CONSULTATION: 10/01/2019 Pulmonary Consultation HISTORY OF PRESENT ILLNESS: Patient of Dr. Giles, Dr. Edgard Ponce, and Dr. Gutierrez. 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 History of confusion, weakness and hallucinations at home, hypertension, depression. MEDICATIONS: Included Colace, losartan, Lipitor, Pepcid, Levoxyl, metoprolol, omeprazole. Anticoagulant is not listed in her home medication list since skin and muscle graft surgery in her right leg. PHYSICAL EXAMINATION: GENERAL: Well-developed white female, now able to relate her history. She is frail. VITAL SIGNS: Temperature 97.4, pulse 82, respirations 30, blood pressure 100/61. HEAD: Normocephalic, atraumatic. LUNGS: Rales right greater than left. HEART: Regular rate and rhythm. ABDOMEN: Nontender. EXTREMITIES: Nonedematous. serum bicarbonate is 14, 17 on admission. Anion gap was 13 on admission, now 19. IMPRESSION: Cannot exclude concomitant sepsis. Possible addisonian crisis. The patient is anticoagulated for a large clot in the right pulmonary artery, which seems to have enlarged since her previous study. Apparently, she was not on anticoagulation at home. Methicillin-resistant Staphylococcus aureus in the sputum. Recommend therapeutic anticoagulation. Consider bicarbonate. Check a.m. cortisol and can begin replacement therapy. Pulmonary embolus had been reported in July of this year. MD BARTOLOME Shen/MODL /[id number]
--- NOTE | 2019-10-01 18:38 | NUR ---
PATIENT SON AT BEDSIDE. SHE REFUSED TO EAT WHEN I ATTEMPTED BUT HE WAS ABLE TO FEED HER AND SHE IS AWAKE AND ALERT
[2019-10-02] VITALS (9 sets, daily range): BP systolic 91–158; BP diastolic 58–111
[2019-10-02] MEDS: MEROPENEM 500MG/ NS 50ML 50 ML IV SCH ×3 (00:12→15:40)
[2019-10-02 04:33] LABS: BASOPHILS % 0.6 % (0.0-1.0); HEMATOCRIT 39.2 % (34.2-44.1); HEMOGLOBIN 12.2 g/dL (12.0-16.0); LYMPHOCYTES # (AUTO) 0.6 (1.0-3.2); LYMPHOCYTES % 10.5 % (18.0-39.1); MEAN CORPUSCULAR HEMOGLOBIN 30.9 pg (28-32); MEAN CORPUSCULAR HGB CONC 31.1 g/dL (31-35); MONOCYTES # (AUTO) 0.2 (0.2-0.8); MONOCYTES % 2.8 % (4.4-11.3); NEUTROPHILS # (AUTO) 4.6 (2.1-6.9); NEUTROPHILS % 85.5 % (38.7-80.0); PLATELET COUNT 217 x10e3/uL (140-360); RED BLOOD COUNT 3.95 x10e6/uL (3.6-5.1); RED CELL DISTRIBUTION WIDTH 16.5 % (11.7-14.4)
[2019-10-02 04:37] LABS: MEAN CORPUSCULAR VOLUME 99.2 fL (81-99)
[2019-10-02 04:52] LABS: ANION GAP 12.2 mmol/L (8-16); CALCIUM 7.9 mg/dL (8.4-10.2); CREATININE, SERUM 1.3 mg/dL (0.57-1.11); POTASSIUM 3.2 mmol/L (3.5-5.1)
--- NOTE | 2019-10-02 05:08 | Diagnostic Imaging Report ---
EXAMINATION: CHEST SINGLE (PORTABLE) INDICATION: Community-acquired pneumonia. COMPARISON: CT chest 09/29/2019 and chest radiograph 09/29/2019. FINDINGS: LINES/TUBES:None LUNGS:The lungs volumes are low. Pulmonary venous congestion and perihilar opacities are unchanged. No evidence of lobar pneumonia. PLEURA:Trace left pleural effusion. No evidence of pneumothorax. MEDIASTINUM:Unchanged mild cardiomegaly. Atherosclerotic calcifications of the thoracic aorta. Unchanged prominence of the right hilum. BONES/SOFT TISSUES:No acute osseous injury. ABDOMEN:No free air under the diaphragm. IMPRESSION: Findings of mild pulmonary interstitial edema and trace left pleural effusion. No new consolidation. Signed by: Dr. Ofelia Botello MD on 10/02/2019 5:04 AM
[2019-10-02] MEDS: VANCOMYCIN 500MG/NS 0.9% 100ML 100 ML IV SCH ×2 (05:57→16:24)
[2019-10-02] MEDS: HYDROCORTISONE SOD SUCCINATE 100 MG VIAL IV SCH ×3 (05:57→21:24)
[2019-10-02] MEDS: LEVOTHYROXINE SODIUM 75 MCG TAB PO SCH (05:57)
--- NOTE | 2019-10-02 07:00 | NUR ---
BEDSIDE ROUNDS COMPLETE NO DISTRESS NOTED, HEPARIN GTT TO L MIDLINE, VARELA TO BSD WITH YELLOW URINE NOTED, NO OTHER CO VOCIED CALL LIGHT IN REACH WILL CONTINUE OT MONITOR,
[2019-10-02] MEDS: ALBUTEROL SULF 0.083% NEB SOLN 3 ML NEB NEB SCH ×3 (07:36→23:05)
[2019-10-02] MEDS: METOPROLOL TARTRATE 25 MG TAB PO SCH ×2 (08:50→16:25)
[2019-10-02] MEDS: BALSAM PERU/CASTOR OIL 60 GM OINT...G. TP SCH (08:50)
[2019-10-02] MEDS: PANTOPRAZOLE SOD 40 MG TABEC PO SCH (08:50)
--- NOTE | 2019-10-02 10:55 | NUR ---
CALLED AND SPOKE WITH SON SOHAIL, HE STATES HE WAS HAPPY WITH [facility], WHERE SHE WAS HER PRIOR STAY, HE STATES HIS DAUGHTER WAS CONCERNED WITH THE ROOM SIZE AND SHARING A BATHROOM. CALLED [facility] AND CONFIRMED THE PATIENT HAS COMMUNITY MEDICAID AND WILL NEED TO GO ASSISTED MEDICAID PENDING UNTIL SWITCHED TO FACILITY MEDICAID WHICH TAKES APPROX 30 DAYS. HE STATES IT IS FINE TO SEND CLINICALS TO [place]. FAXING TO [phone]
--- NOTE | 2019-10-02 12:28 | NUR ---
ptt 40.8 heparin increased by 100units/hr heparin now running at 4mls/hr
[2019-10-02] MEDS: HEPARIN 25,000 UNIT 900 UNIT in DEXTROSE 5% 250ML 250 ML IV SCH (13:30)
[2019-10-02] MEDS ORDERED: ACYCLOVIR SODIUM INJ 500 MG in SODIUM CHLORIDE 0.9% 100 ML 100 ML IV STA (16:23)
[2019-10-02] MEDS ORDERED: SODIUM CHLORIDE 0.9% 1000ML 1,000 ML IV ONE (17:00)
--- NOTE | 2019-10-02 18:58 | NUR ---
SHIFT REPORT GIVEN TO ONCOMING NURSE, PT LEFT IN STABLE CONDITION, SON A BEDSIDE, CALL LIGHT IN REACH.
--- NOTE | 2019-10-02 19:36 | NUR ---
PTT 46.7 - HEPARIN GTT INCREASED TO 500 U/HR PER PROTOCOL
[2019-10-02] MEDS ORDERED: HEPARIN 25,000 UNIT 900 UNIT in DEXTROSE 5% 250ML 250 ML IV SCH (19:45)
--- NOTE | 2019-10-02 20:11 | Progress Note ---
DATE: 10/02/2019 Cardiology Progress note SUBJECTIVE: Awake today, more responsive and talkative. No current complaints. Denies chest pain or shortness of breath. Undergoing IV fluids for low blood pressure reads and decreased p.o. intake. OBJECTIVE: VITAL SIGNS: Temperature 98.7, respiratory rate is 28, blood pressure is 120/73, and O2 sat is 97%. BMI is 24.9. GENERAL: In no acute distress. Alert. NECK: No JVD. CHEST: Clear to auscultation. CARDIOVASCULAR: Regular rate and rhythm. Normal S1 and S2. ABDOMEN: Soft. Bowel sounds positive. EXTREMITIES: Trace edema. Contractures to hands and feet. CARDIOVASCULAR MEDICATIONS: Have been reviewed. Of note, particularly heparin drip. LABORATORY STUDIES: Reviewed. Potassium 3.2, creatinine is 1.3, glucose 148, hemoglobin 12.2, white blood cells 5.3, platelets 217. ASSESSMENT AND PLAN: 1. A 79-year-old woman presents with pulmonary embolism with RV strain on previous admission, recently off anticoagulation, now after resuming anticoagulation. 2. Failure to thrive. 3. Descending aortic thrombus. RECOMMENDATIONS: 1. Continue IV heparin. 2. Encourage increased p.o. intake. 3. Consider PT and OT. 4. Overall, remains a guarded prognosis. 5. Monitor h/h. MD HARMEET Welsh/ESME /[id number] MTDD
[2019-10-03] VITALS (8 sets, daily range): BP systolic 117–164; BP diastolic 67–94
[2019-10-03] MEDS: MEROPENEM 500MG/ NS 50ML 50 ML IV SCH ×2 (00:31→07:52)
[2019-10-03] MEDS: VANCOMYCIN 500MG/NS 0.9% 100ML 100 ML IV SCH ×2 (05:29→17:17)
[2019-10-03] MEDS: HYDROCORTISONE SOD SUCCINATE 100 MG VIAL IV SCH ×3 (06:16→21:59)
[2019-10-03] MEDS: LEVOTHYROXINE SODIUM 75 MCG TAB PO SCH (06:16)
[2019-10-03] MEDS: ALBUTEROL SULF 0.083% NEB SOLN 3 ML NEB NEB SCH ×3 (06:53→20:10)
--- NOTE | 2019-10-03 07:00 | NUR ---
BEDSIDE ROUNDS COMPLETE NO DISTRESS NOTED, UPDATED ON POC VOICED UNDERSTANDING, DENIES PAIN AT THIS TIME, VARELA TO BSD WITH YELLOW URINE NOTED, NO OTHER CO VOICED CALL LIGHT IN REACH WILL CONTINUE TO MONITOR
[2019-10-03] MEDS: BALSAM PERU/CASTOR OIL 60 GM OINT...G. TP SCH (07:52)
[2019-10-03] MEDS: METOPROLOL TARTRATE 25 MG TAB PO SCH ×2 (07:52→17:17)
[2019-10-03] MEDS: PANTOPRAZOLE SOD 40 MG TABEC PO SCH (07:52)
[2019-10-03] MEDS: APIXABAN 5 MG TABLET PO SCH ×2 (08:42→17:17)
[2019-10-03] MEDS ORDERED: POTASSIUM CHLORIDE 10MEQ EA PO ONE (08:45)
--- NOTE | 2019-10-03 13:31 | Progress Note ---
DATE: 10/03/2019 Cardiology Progress Note SUBJECTIVE: . Denies any chest pain or shortness of breath. She is less fatigued today. Eliquis was resumed as heparin stopped. OBJECTIVE: VITAL SIGNS: Temperature 98.2, heart rate 81, blood pressure 149/85, respiratory rate 22, O2 saturation 97%. BMI 24.9. GENERAL: No acute distress. Alert. NECK: No JVD. CHEST: Clear to auscultation. CARDIOVASCULAR: Regular rate and rhythm. Normal S1, S2. ABDOMEN: Soft. Bowel sounds positive. EXTREMITIES: Trace edema. MUSCULOSKELETAL: Contracted hands and feet. CARDIOVASCULAR MEDICATIONS: Reviewed. Eliquis 5 mg every 12 hours. LABORATORY DATA: Sodium 146, potassium 3.2, chloride 117, bicarbonate 20, BUN 24, creatinine 1.3, glucose 148. White blood cells 5.3, hemoglobin 12.2, platelets 217. INR 2. AST 41, ALT 39, alk phos 134. ASSESSMENT AND PLAN: 1. A 79-year-old woman, who presents with PE and RV strain, on anticoagulation, now resumed Eliquis. 2. Ascending aortic thrombus. 3. Failure to thrive, improving. 4. Hypothyroidism. 5. Rheumatoid arthritis. 6. Hypertension. RECOMMENDATIONS: Continue current cardiovascular medications. The patient seems to be doing better following several days of anticoagulation being resumed. Continue metoprolol and Eliquis. No change. MD HARMEET Welsh/ESME /[id number]
--- NOTE | 2019-10-03 13:41 | NUR ---
PAGED DR WETZEL RE: DC OF IV ABX, AWAITING CALL BACK
--- NOTE | 2019-10-03 14:00 | NUR ---
PAGED DR WETZEL AGAIN RE: DC OF IV ABX, AND DC OF CONTACT ISO, AWAITING CALL BACK
--- NOTE | 2019-10-03 14:50 | NUR ---
SPOKE WITH DR DAMARI MD STATES ONCE RM IS ASSIGNED AND PT READY TO GO MD WILL GIVE FURTHER ORDERS.
--- NOTE | 2019-10-03 16:00 | NUR ---
LEFT MESSAGE FOR DR WETZEL, INFORMED MD, PT FAMILY HAS NOT DONE PAPERWORK YET AND NO PRIVATE ROOM WILL BE AVAILABLE TILL TUESDAY, SO PT UNABLE TO TRANSFER TILL TUESDAY
--- NOTE | 2019-10-03 16:45 | NUR ---
SPOKE WITH FACILITY, FAMILY DID NOT GO FILL OUT PAPERWORK AND SPOKE WITH NURSE AND SHE IS GETTING SPUTUM, ALSO WAS TOLD FACILITY DOES NOT HAVE A PRIVATE ROOM FOR ISO UNTIL TUESDAY, WILL SPEAK WITH FACILITY ON TUESDAY TO FOLLOW UP AND SEE IF EVERYTHING IS COMPLETED TO COMPLETE THE PROCESS
--- NOTE | 2019-10-03 18:10 | NUR ---
Nutrition Intervention Note RD Recommendation(s) for Physician: -Ensure pudding BID for added nutrition -Tommy BID for wound healing -Continue current diet regimen Plan of Care: RD following, monitoring for tolerance and adequacy Nutrition reason for involvement: RD Assessment (10/03/2019) Pt is on a cardiac diet with pureed/nectar thick consistency. Per documentation, pt has been consuming 25-50% of meals. Pt also has a stage 2 buttock pressure ulcer per wound care note. Will provide pt with Ensure pudding BID for added nutrition and Tommy BID for wound healing. Will continue to monitor. (09/29/2019) Chart reviewed. Labs and meds reviewed. Initial encounter with patient. Pt was not able to provide a nutrition Hx at the time of visit. Nurse provided nutrition Hx. Pt is well known from previous admits. Pt needs to be fed, No known food allergies. Poor to fair PO intake of clears. Pt ate gelatin and drank juice. Pt has maintained weight. No N,V,D, nor any difficulty chewing or swallowing. Principal Problems/Diagnoses: AMS unspecified PMH: Dementia, heart failure, HTN, skin graft, hypothyroid, end stage lung disease I/O: 624/376 GI: last recorded BM 10/03 Skin: stage 2 pressure ulcer right buttock per wound care note Labs: (10/03/19) Na 146, K 3.2, Creat 1.30, Glu 148, Ca 7.9 Meds: (10/03/19) protonix, metroprolol, levothyroxine, vancomycin, zofran Ht:60 in Wt:128lb BMI:25 kg/m2 IBW:100lb Malnutrition Evaluation (09/29/19) The patient does not meet criteria for a specified degree of malnutrition at this time. Will re-evaluate at follow-up as appropriate. Nutrition Prescription (Diet Order): Cardiac with pureed/mechanical soft diet consistency Estimated Nutritional Needs: 5838-6207 calories/day (25-35 kcal/kg CBW) 58-87 g protein/day (1-1.5g pro/kg CBW) Diet Adequacy: Not meeting calorie needs, Not meeting protein needs Tolerance: Tolerating PO Diet Education Needs Assessment: Diet education not indicated Nutrition Care Level: moderate Nutrition Diagnosis: Increased nutrient needs related to increased demand for protein and kcal as evidenced by stage 2 buttock pressure ulcer. Goal: Patient will meet 75-100% of estimated needs by follow up Progress: Not Progressing Interventions: - texture-modified diet, Commercial beverage, Commercial food Monitoring/Evaluation: -Total energy intake, Total protein intake, Modified diet, Liquid supplement, Weight change Signed: Ladan Kee RD, LD
--- NOTE | 2019-10-03 19:00 | NUR ---
Report received. Assumed care. Assessment done. See interventions.
[2019-10-04] VITALS (8 sets, daily range): BP systolic 144–156; BP diastolic 90–109
[2019-10-04] MEDS: VANCOMYCIN 500MG/NS 0.9% 100ML 100 ML IV SCH (04:55)
--- NOTE | 2019-10-04 05:00 | NUR ---
Complete bed bath given. Cleaned for small soft brown stool.
[2019-10-04 05:27] LABS: BASOPHILS % 0.3 % (0.0-1.0); HEMATOCRIT 38.2 % (34.2-44.1); HEMOGLOBIN 11.7 g/dL (12.0-16.0); LYMPHOCYTES % 14.1 % (18.0-39.1); MEAN CORPUSCULAR HEMOGLOBIN 30.9 pg (28-32); MEAN CORPUSCULAR HGB CONC 30.6 g/dL (31-35); MEAN CORPUSCULAR VOLUME 100.8 fL (81-99); MONOCYTES # (AUTO) 0.3 (0.2-0.8); MONOCYTES % 4.4 % (4.4-11.3); NEUTROPHILS # (AUTO) 5.5 (2.1-6.9); NEUTROPHILS % 79.9 % (38.7-80.0); PLATELET COUNT 208 x10e3/uL (140-360); RED BLOOD COUNT 3.79 x10e6/uL (3.6-5.1); RED CELL DISTRIBUTION WIDTH 16.9 % (11.7-14.4)
[2019-10-04 05:50] LABS: CALCIUM 8.5 mg/dL (8.4-10.2); CREATININE, SERUM 1.25 mg/dL (0.57-1.11)
[2019-10-04] MEDS: HYDROCORTISONE SOD SUCCINATE 100 MG VIAL IV SCH (06:20)
[2019-10-04] MEDS: LEVOTHYROXINE SODIUM 75 MCG TAB PO SCH (06:20)
[2019-10-04] MEDS: ALBUTEROL SULF 0.083% NEB SOLN 3 ML NEB NEB SCH ×2 (07:00→13:26)
[2019-10-04] MEDS: PANTOPRAZOLE SOD 40 MG TABEC PO SCH (08:26)
[2019-10-04] MEDS: APIXABAN 5 MG TABLET PO SCH ×2 (08:26→18:07)
[2019-10-04] MEDS: METOPROLOL TARTRATE 25 MG TAB PO SCH ×2 (08:26→18:15)
[2019-10-04] MEDS: BALSAM PERU/CASTOR OIL 60 GM OINT...G. TP SCH (08:26)
[2019-10-04] MEDS ORDERED: TRAMADOL HCL 50 MG TAB PO ONE (08:30)
[2019-10-04] MEDS: HYDROCORTISONE 10 MG TAB PO SCH (12:50)
[2019-10-04] MEDS: MUPIROCIN 2% OINT 22 GM TUBE TOP SCH ×2 (12:50→18:07)
[2019-10-04] MEDS: DOXYCYCLINE HYCLATE TABLET 100 MG TAB PO SCH ×2 (12:50→18:07)
[2019-10-04] MEDS: AMLODIPINE BESYLATE 5 MG TAB PO SCH (12:50)
[2019-10-04] MEDS: TRAMADOL HCL 50 MG TAB PO SCH ×2 (12:51→21:34)
--- NOTE | 2019-10-04 14:12 | Progress Note ---
DATE: 10/04/2019 Cardiology Progress Note SUBJECTIVE: The patient is stable overnight with no new complaints. OBJECTIVE: VITAL SIGNS: Temperature is 97.7, heart rate 82, blood pressure elevated at 156/115, respirations 18, pulse ox 98% on room air. GENERAL: No acute distress. Alert and oriented. NECK: No JVD. CHEST: Clear to auscultation bilaterally. CARDIOVASCULAR: Regular rate and rhythm. Normal S1 and S2. ABDOMEN: Soft, nontender. Positive bowel sounds. EXTREMITIES: Trace edema bilaterally. MUSCULOSKELETAL: Contracted hands and feet. MEDICATIONS: Please review chart. The patient was resumed on Eliquis 5 mg b.i.d. LABORATORY DATA: Hemoglobin of 11.7. Creatinine is 1.25. ASSESSMENT AND PLAN: A 79-year-old woman with pulmonary embolus and RV strain, now on anticoagulation and stable. 1. Ascending aortic thrombosis. 2. Failure to thrive. 3. Hypothyroidism. 4. Rheumatoid arthritis. 5. Hypertension. RECOMMENDATIONS: Continue supportive care and current cardiovascular medications. The patient appears stable. Continue to monitor for signs and symptoms of bleeding while on Eliquis. Cross cover for Dr. Jose Rodriguez. MD NICOLASA Montana/ESME /[id number]
[2019-10-04] MEDS ORDERED: ONDANSETRON HCL 4 MG ORAL DISINTEGRATING TAB PO PRN (18:30)
--- NOTE | 2019-10-04 19:00 | NUR ---
Report received. Assumed care. Assessment done. See interventions. Son at bedside. Feeding patient. Reinforced with him that she has to have thickened liquids. Verbalized understanding.
[2019-10-05] VITALS (7 sets, daily range): BP systolic 127–157; BP diastolic 74–107
--- NOTE | 2019-10-05 05:30 | NUR ---
Cleaned for small soft brown stool.
[2019-10-05] MEDS: LEVOTHYROXINE SODIUM 75 MCG TAB PO SCH (06:02)
[2019-10-05] MEDS: TRAMADOL HCL 50 MG TAB PO SCH ×3 (06:02→21:01)
--- NOTE | 2019-10-05 06:16 | NUR ---
Drsg change to [facility].
[2019-10-05] MEDS: ALBUTEROL SULF 0.083% NEB SOLN 3 ML NEB NEB SCH ×3 (07:30→22:30)
[2019-10-05] MEDS: MUPIROCIN 2% OINT 22 GM TUBE TOP SCH ×2 (08:52→17:17)
[2019-10-05] MEDS: PANTOPRAZOLE SOD 40 MG TABEC PO SCH (08:52)
[2019-10-05] MEDS: DOXYCYCLINE HYCLATE TABLET 100 MG TAB PO SCH ×2 (08:52→17:17)
[2019-10-05] MEDS: BALSAM PERU/CASTOR OIL 60 GM OINT...G. TP SCH (08:52)
[2019-10-05] MEDS: METOPROLOL TARTRATE 25 MG TAB PO SCH ×2 (08:53→17:17)
[2019-10-05] MEDS: HYDROCORTISONE 10 MG TAB PO SCH (08:53)
[2019-10-05] MEDS: AMLODIPINE BESYLATE 5 MG TAB PO SCH (08:53)
[2019-10-05] MEDS: APIXABAN 5 MG TABLET PO SCH ×2 (08:53→17:17)
--- NOTE | 2019-10-05 11:38 | NUR ---
SPOKE WITH FACILITY, PT IS OVER RESOURCED WITH FINANCIALS AND DOES NOT MEET MEDICAID CRITERIA, PT IS DENIED [employer]AC[employer] AT [place], CALLED AND LEFT MESSAGE FOR SOHAIL TO RETURN CALL TO SEE IF HE WANTS TO PAY PRIVATE RATE OR TAKE THE PT HOME.
--- NOTE | 2019-10-05 13:30 | NUR ---
SPOKE WITH SON AND LET HIM KNOW THAT SINCE HIS MOTHER HAS MULTIPLE ACCOUNTS WITH LARGE AMOUNTS OF MONEY IN THEM, SHE IS OVER RESOURCED FOR MEDICAID. LET SON KNOW THAT HE WILL HAVE TO PAY PRIVATE PAY. SON REFUSED, STATES SHE WILL HAVE GO HOME WITH HOME HEALTH AND THE NURSE THAT CAME TO SEE HER BEFORE IS WHO HE WANTS TO COME AGAIN. HE WILL CALL BACK AND GIVE HOME HEALTH NAME AND PHONE NUMBER.
--- NOTE | 2019-10-05 13:30 | Progress Note ---
DATE: 10/05/2019 Cardiology Progress Note SUBJECTIVE: The patient is stable overnight with no new complaints. Family members at bedside. OBJECTIVE: VITAL SIGNS: Temperature is 98.6, heart rate 75, blood pressure 144/95, respirations 17, O2 saturation 97% on 2 L nasal cannula. GENERAL: The patient is in no acute distress. She is alert and oriented. NECK: No JVD. CHEST: Clear to auscultation bilaterally. CARDIOVASCULAR: Regular rate and rhythm. Normal S1, S2. ABDOMEN: Soft, nontender. Positive bowel sounds. EXTREMITIES: With trace edema bilaterally. MUSCULOSKELETAL: Contracted hands and feet. MEDICATIONS: Please refer to chart. The patient was resumed on Eliquis 5 mg p.o. b.i.d. LABORATORY DATA: No new labs. ASSESSMENT: 1. A 79-year-old woman with pulmonary embolus and right ventricular strain, now on anticoagulation and stable. 2. Ascending aortic thrombosis. 3. Failure to thrive. 4. Hypothyroidism. 5. Rheumatoid arthritis. 6. Hypertension. RECOMMENDATIONS: 1. Continue current regimen, supportive care. Continue anticoagulation with Eliquis. 2. Continue rehab as tolerated. Cross cover for Dr. Jose Rodriguez. MD NICOLASA Montana/ESME /[id number]
--- NOTE | 2019-10-05 14:03 | NUR ---
SPOKE WITH SON WHO STATES HER PRIOR NURSE FROM HOME [facility] NUMBER IS [phone], CALLED AND FOUND OUT IS [facility] PHONE [phone] AND FAX IS [phone]
--- NOTE | 2019-10-05 16:16 | NUR ---
GOT A CALL FROM NURSE STATING THE DOCTOR WANTS HER TO BE PLACED, CALLED AND LEFT VOICE MAIL ABOUT THE REASON THE NURSE WAS CALLING FOR THE HOME HEALTH ORDER IS BECAUSE THE SON IS REFUSING TO PAY PRIVATE RATE AT ANY FACILITY.
--- NOTE | 2019-10-05 16:27 | NUR ---
SPOKE WITH DR WETZEL WHOM STATES GIVE SON THE OPTION OF HOSPICE. HE STATES HE WILL DISCHARGE TOMORROW EITHER WAY.
--- NOTE | 2019-10-05 16:52 | NUR ---
SPOKE WITH SON SOHAIL [phone], OFFERED HOSPICE PER DR REQUEST, HE STATES HE IS OKAY WITH [facility] FILED CHOICE AND CONTACTED [facility] TO BE DISCHARGED HOME TOMORROW. NOTIFIED DOCTOR, NURSE AND CM. HOSPICE WILL CONTACT FAMILY AND SEE WHEN HE WANTS TO MEET. SON STATES HE WILL HAVE , AND A PROVIDER HELP TAKE CARE OF HIS MOTHER AND INSTALL CAMERAS AT HOME SO HE CAN MONITOR FROM HER HIS CELL.
--- NOTE | 2019-10-05 19:52 | NUR ---
Received change of shift report from AM nurse. Walking rounds completed.
--- NOTE | 2019-10-05 22:00 | NUR ---
Patient A and O x1. Diaz to bedside drainage. Deft Picc intact. O2 at 2L n/c. Meds given for pain. Patient transfer to M/S 115 report given.
--- NOTE | 2019-10-05 22:11 | NUR ---
Report given to nurse. Belonging sent with patient.
[2019-10-06] VITALS: BP 145/89
[2019-10-06 00:27] VITALS: BP 145/89
[2019-10-06 04:42] VITALS: BP 149/84
[2019-10-06] MEDS: TRAMADOL HCL 50 MG TAB PO SCH ×2 (05:11→14:21)
[2019-10-06] MEDS: LEVOTHYROXINE SODIUM 75 MCG TAB PO SCH (05:11)
--- NOTE | 2019-10-06 07:00 | NUR ---
BEDSIDE SHIFT REPORT RECEIVED FROM NIGHT RN. PT DENIES NEEDS AT THIS TIME.
[2019-10-06] MEDS: ALBUTEROL SULF 0.083% NEB SOLN 3 ML NEB NEB SCH (07:45)
[2019-10-06 08:00] VITALS: BP 149/84
[2019-10-06 08:30] VITALS: BP 155/87
[2019-10-06] MEDS: BALSAM PERU/CASTOR OIL 60 GM OINT...G. TP SCH (08:54)
[2019-10-06] MEDS: PANTOPRAZOLE SOD 40 MG TABEC PO SCH (08:54)
[2019-10-06] MEDS: DOXYCYCLINE HYCLATE TABLET 100 MG TAB PO SCH (08:54)
[2019-10-06] MEDS: MUPIROCIN 2% OINT 22 GM TUBE TOP SCH (08:54)
[2019-10-06] MEDS: APIXABAN 5 MG TABLET PO SCH (08:54)
[2019-10-06] MEDS: AMLODIPINE BESYLATE 5 MG TAB PO SCH (08:54)
[2019-10-06] MEDS: METOPROLOL TARTRATE 25 MG TAB PO SCH (08:54)
[2019-10-06] MEDS: HYDROCORTISONE 10 MG TAB PO SCH (09:43)
[2019-10-06 12:16] VITALS: BP 122/77
--- NOTE | 2019-10-06 14:49 | NUR ---
Spoke with Lg, son, notified him that hospice will be here to [facility]. Lg states the hospice company has set up all the equipment and they are ready to accept his mother. IMM explained to lg, and he gives telephone consent to me and caitlin pedro.
--- NOTE | 2019-10-06 15:25 | Progress Note ---
DATE: 10/06/2019 Cardiology Progress Note SUBJECTIVE: The patient was stable overnight. No new complaints. OBJECTIVE: VITAL SIGNS: Temperature is 95.8, heart rate is 65, blood pressure is 122/77 mmHg, respirations 18. The patient is saturating 100% on room air. GENERAL: No acute distress. The patient is currently sleeping. NECK: No JVD. CHEST: Clear to auscultation bilaterally. CARDIOVASCULAR: Regular rate and rhythm. Normal S1, S2. ABDOMEN: Soft, nontender. Positive bowel sounds. EXTREMITIES: Trace edema bilaterally. MUSCULOSKELETAL: Contracted hands and feet. MEDICATIONS: Please refer to chart. The patient is on Eliquis 5 mg p.o. b.i.d. LABORATORY DATA: No new labs. ASSESSMENT: A 79-year-old woman with: 1. Pulmonary embolus and right ventricular strain, now on anticoagulation, and stable. 2. Ascending aortic thrombosis. 3. Failure to thrive. 4. Hypothyroidism. 5. Rheumatoid arthritis. 6. Hypertension. RECOMMENDATIONS: The patient's family and primary care team had determined that the patient would be best suited to be placed on palliative care and hospice management. Recommend to continue current cardiovascular treatments including anticoagulation with Eliquis. Cardiology will sign off as at this time. Please call back with further questions or concerns. Cross cover for Dr. Jose Rodriguez. MD NICOLASA [place]/ESME /[id number]
== END 2019-10-06 15:30 | disposition hospice, home (50) | DRG 871 ==
LOC: ER 14:17 → ERHOLD 17:10 → IMCU 23:12 → MED/SURG 10-05 22:17
PROVIDERS: ADMIT Internal Medicine; ATTEND Internal Medicine
PROC: 02HV33Z Insertion of Infusion Device into Superior Vena Cava, Percutaneous Approach (ICD-10-PCS; principal; 2019-09-29)
PROC: B548ZZA Ultrasonography of Superior Vena Cava, Guidance (ICD-10-PCS; 2019-09-29)
DX: A41.9 Sepsis, unspecified organism (principal); I26.99 Other pulmonary embolism without acute cor pulmonale; I50.33 Acute on chronic diastolic (congestive) heart failure; J69.0 Pneumonitis due to inhalation of food and vomit; E43 Unspecified severe protein-calorie malnutrition; J15.212 Pneumonia due to Methicillin resistant Staphylococcus aureus; E87.2 Acidosis; E27.2 Addisonian crisis; I82.441 Acute embolism and thrombosis of right tibial vein; I74.19 Embolism and thrombosis of other parts of aorta; I51.3 Intracardiac thrombosis, not elsewhere classified; M06.9 Rheumatoid arthritis, unspecified; R62.7 Adult failure to thrive; Z68.25 Body mass index [BMI] 25.0-25.9, adult; I73.89 Other specified peripheral vascular diseases; R41.82 Altered mental status, unspecified; Z88.0 Allergy status to penicillin; Z82.49 Family history of ischemic heart disease and other diseases of the circulatory system; I11.0 Hypertensive heart disease with heart failure; Z87.440 Personal history of urinary (tract) infections; Z66 Do not resuscitate; M21.942 Unspecified acquired deformity of hand, left hand; M21.941 Unspecified acquired deformity of hand, right hand; R53.81 Other malaise; L89.312 Pressure ulcer of right buttock, stage 2
CPT/HCPCS: 36415; 36600; 51700; 70450; 71045; 71260; 80048; 80053; 80202; 80307; 81001; 82533; 82550; 82553; 82805; 83605; 83735; 83880; 84100; 84443; 84484; 85025; 85610; 85730; 87040; 87070; 87086; 87186; 87205; 93005; 93306; 93925; 94640; 96361; 99284; J1644; J1720; J2310; J3370; J7030; J7070; Q9967